=== PATIENT | female | born 1945 | race Caucasian/White ===

== ENCOUNTER 2016-03-24 11:55 | Emergency (ER) | payer MEDICARE ==
[~2016-03-24] VITALS: Ht 160 cm; Wt 100.0 kg
[~2016-03-24 11:55] MED LIST: CHOL200047 PO; CYAN500 PO; FURO40TA4 PO; IPRA3AMP NEB; LEVO750T9 PO; LISI40TA PO; MAGN400T4 PO; METF1000 PO; PANT40TA2 PO; PRED-508 PO; ZYL100 PO
[2016-03-24 11:57] VITALS: BP 153/77; PULSE 82; RESP 18; O2SAT 96
--- NOTE | 2016-03-24 12:24 | ED.REPORT ---
HPI-Dyspnea / Wheezing Date of Service Mar 24, 2016 ED Provider: Crissy Cantrell MD 71 year old diabetic female with a history of CHF, COPD, sleep apnea, CAD, and HTN presents to the ER complaining of 3-4 days of dyspnea with minimal exertion. Symptoms are resolved by resting. Multiple prior admissions for acute dyspnea. She reports fluid retention associated with previous similar episodes. Patient denies fever, and chest pain. Patient is on 2L O2 at home. She was seen by her PCP, Dr. Sow, 03/14/2016. Nursing Notes Stated Complaint: SOB Chief Complaint: Respiratory Distress Nursing Notes Reviewed: Yes Allergies: Coded Allergies: No Known Allergies (Verified , 03/24/16) Scheduled Allopurinol (Allopurinol) 100 Mg Tablet 100 MG PO DAILY Cholecalciferol (Vitamin D3) (Vitamin D3) 2,000 Unit Capsule 2,000 UNIT PO DAILY Cyanocobalamin (Vitamin B12) 500 Mcg Tablet 1,000 MCG PO DAILY Furosemide (Furosemide) 40 Mg Tablet 40 MG PO DAILY Ipratropium/Albuterol Sulfate (Iprat-Albut 0.5-3(2.5) mg/3 mL Inhalant Soln) 3 Ml Ampul.neb 3 ML NEB Q4HWA Levofloxacin (Levaquin) 750 Mg Tablet 750 MG PO DAILY Lisinopril (Lisinopril) 40 Mg Tablet 40 MG PO DAILY Magnesium Oxide (Magnesium Oxide) 400 Mg Tablet 400 MG PO BID Metformin (Glucophage) 1,000 Mg Tablet 1,000 MG PO BID Pantoprazole DR (Protonix) 40 Mg Tablet 40 MG PO DAILY Prednisone (Deltasone) 20 Mg Tablet 40 MG PO DAILY take 2 tabs for 2 days, then 1 tab for 4 days, then 1/2 tab for 4 days, then stop. General Time Seen by MD: 12:09 Chief Complaint Shortness of breath Hx Obtained From: Patient Arrived By: Walk-in Sudden in Onset?: No Onset Occurred: 4 days ago Symptom Duration: Since onset Location: : None Associated with: Denies: Chest pain, Fever Context Related History: Reports: COPD Recent Healthcare: Recent doctor visit Similar Sx Previous: Yes Past Medical History Past Medical History Notes: PCP: Dr. Sow, and Dr. Willam Dove Global Marketing Coordinator: Dr. Mann Past Medical History Hx of a Myocardial infarction Sleep apnea Reports: COPD, Congestive heart failure, Coronary artery disease, Diabetes mellitus, Hypertension Reports: Depression Past Surgical History right knee surgery Reports: Appendectomy, Cholecystectomy Family History noncontributory Smoking History Former Smoker Social History Other Social History: Good social support, Local resident Ambulatory Status Walker Review of Systems Constitutional: Denies: Chills, Fever Respiratory: Reports: Dyspnea on exertion, Shortness of breath, Denies: Non-productive cough Cardiovascular: Denies: Chest pain, Palpitations Musculoskeletal: Denies: Back pain, Extremity pain, Neck pain Skin: Denies Diaphoresis Complete sys rev & neg: except as marked. GI: Denies: Nausea, Vomiting Physical Exam Initial Vital Signs Vital Signs (First) Date Time Temp Pulse Resp B/P Pulse Ox O2 Delivery O2 Flow Rate FiO2 03/24/16 11:57 36.4 82 18 153/77 96 Nasal Cannula 2 Initial VS: Reviewed ENT: Mucous membranes moist, Conjunctiva normal, No scleral icterus Extremities: Vascular intact, Neuro intact, No tenderness Skin: Warm, Dry, No cyanosis Neurologic: Alert, Oriented, Nonfocal Psychiatric: Mood/affect normal, Behavior normal, Normal thought content General/Constitutional: Awake, Alert, Well developed, Well nourished Neck: Atraumatic, Supple, No meningismus, Full range of motion, No swelling, Non-tender, No masses Respiratory / Chest: No rales, No rhonchi Wheezing / Retractions: Positive: Wheezing moderate (Upper lung castellanos, bilaterally) Cardiovascular: Heart rate NL, Regular rhythm, Heart sounds NL, Peripheral circulation NL Lower Ext Edema: Positive: Left 2+, Right 3+ Head / Eyes: Atraumatic, Normocephalic Puffiness under eyes Interpretation & Diagnostics Lab Results Interpretation Result Diagram: 03/24/16 1255 03/24/16 1325 Test 03/24/16 12:55 03/24/16 13:25 03/24/16 13:30 White Blood Count 10.0th/mm3 (3.8-10.1) Red Blood Count 3.42mil/mm3 (3.90-5.20) Hemoglobin 10.0g/dL (12.0-15.6) Hematocrit 32.2% (35.0-46.0) Mean Corpuscular Volume 94.2fL (81-100) Mean Corpuscular Hemoglobin 29.2pg (27.0-35.0) Mean Corpuscular Hemoglobin Concent 31.1% (32.0-37.0) Red Cell Distribution Width 14.9% (12.3-15.4) Platelet Count 344bil/L (150-400) Neutrophils (%) (Auto) 66.8% (40-74) Lymphocytes (%) (Auto) 16.3% (14-46) Monocytes (%) (Auto) 10.4% (4-12) Eosinophils (%) (Auto) 5.4% (0-5) Basophils (%) (Auto) 0.4% (0-3) Hold Antonio Top Tube Received (Received) Sodium Level 135mEq/L (134-144) Potassium Level 4.8mEq/L (3.5-5.2) Chloride Level 92mEq/L (97-108) Carbon Dioxide Level 29mmol/L (18-29) Blood Urea Nitrogen 17mg/dL (8-27) Creatinine 0.84mg/dL (0.57-1.00) Estimat Glomerular Filtration Rate 96mL/min (>59) Glucose Level 156mg/dL (60-99) Calcium Level 8.9mg/dL (8.5-10.1) Total Bilirubin 0.2mg/dL (0.0-1.2) Aspartate Amino Transf (AST/SGOT) 11U/L (0-50) Alanine Aminotransferase (ALT/SGPT) 8U/L (0-32) Alkaline Phosphatase 139U/L (25-165) Troponin T < 0.010ug/L (0.0-0.011) Pro-B-Type Natriuretic Peptide 126.6pg/mL (0-301) Total Protein 7.0g/dL (6.4-8.4) Albumin 3.9g/dL (3.4-5.0) Procalcitonin 0.06ng/mL (0.00-0.08) Urine Color Straw (YELLOW) Urine Appearance Hazy (CLEAR,HAZY) Urine pH 7.0 (5.0-8.0) Urine Specific [place] 1.010 (1.003-1.035) Urine Protein Negativemg/dL (NEG,TRACE) Urine Glucose (UA) Negativemg/dL (NEGATIVE) Urine Ketones Negativemg/dL (NEGATIVE) Urine Occult Blood Negative (NEGATIVE) Urine Nitrite Negative (NEGATIVE) Urine Bilirubin Negative (NEGATIVE) Urine Urobilinogen Normalmg/dL (NORMAL) Urine Leukocyte Esterase Negative (NEGATIVE) Urine RBC 0-2/hpf (0-2) Urine WBC 0-5/hpf (0-5) Urine Epithelial Cells Moderate/hpf (NONE-MOD) Urine Crystals None seen (NONE SEEN) Urine Bacteria Moderate/hpf (NONE-FEW) Urine Hyaline Casts None/lpf (NONE) Urine Granular Casts None seen (NONE SEEN) Urine Waxy Casts None seen (NONE SEEN) Urine Red Blood Cell Casts None seen (NONE SEEN) Urine White Blood Cell Casts None seen (NONE SEEN) Urine Mucus None seen (None Seen) Urine Trichomonas None seen (NONE SEEN) Urine Yeast None (NONE SEEN) Urinalysis Comment None Urine Culture Reflexed Indicated ECG Interpretation ECG Interpretation: Sinus rhythm, rate 82 IVCD RBBB Similar to previous ECG 01/23/16 Time: 13:35 Interpreted by: ED physician X-Ray Chest Interpretation Chest Xray Interpretation: IMPRESSION: 1. Findings suspicious for mild pulmonary edema and/or pneumonia versus atelectasis involving the lung bases. Dictated by: Alexey Hargrove RRA Interpreted: Earl Gabriel MD on 03/24/2016 at 13:07 Transcribed by: EMEKA on 03/24/2016 at 13:08 Approved by: Earl Gabriel M.D. on 03/24/2016 at 13:28 View: Portable, 1 view Interpretation / Wet Read by: Interpret - Radiologist Re-Eval/Medical Decision Med Decision/Clinical Course increasing dyspnea for last days. No acute findings aside from hypoxia (with home 02 available) discussed options and decided home with steroid taper would be best. Increased lasix for 3 days. Source of Hx: Old records Re-Evaluation/Progress : Time of Eval: 16:47 Patient Status: Condition improved Re-Evaluation/Progress Note: 02 sats 90s on 4 L 02 will need to increase oxygen at home. has nebs, lasix and given steroids for home all questions answered Counseled Regarding: Diagnosis, Lab results Discharge & Departure Impression: Primary Impression: Dyspnea Additional Impression: COPD exacerbation Disposition: Home Discharge Condition All VS Reviewed: Yes Condition: Stable Additional Instructions: You have said you are more short of breath over the last 5 or so days. Your work up today does NOT show pneumonia, infection, heart attack, dramatic congestive heart failure or other acute life threatening issues. You do seem to be having a significant COPD exacerbation and felt quite a bit better after peeing out about 2L of fluid in the ER. You do not need any antibiotics at this time Ask you oxygen supplier to add a humidifier to the 02 delivery system to help with the sinus pain Use 80mg lasix (2 pills in the am) for the next 3 days then go back to one daily Use Prednisone taper: 60mg 03/25,03/26 40mg 03/27, 03/28 20mg 03/29,03/30 10mg 03/31, 04/01, 04/02, 04/03 5mg 04/04,18,19,20 Make sure you follow up with Dr Sow next week Return to the ER if you are getting worse Thanks for letting me help today! Referrals: Mitch Sow MD (PCP) Scribe Attestation Portions of this note were transcribed by Arnol Wall. I, Dr. Cantrell, personally performed the history, physical exam and medical decision-making; I reviewed and confirmed the accuracy of the information in the transcribed note. Signed by: Carly Mendez, 03/24/2016 and 15:10 copies to: Mitch Sow MD, Shawna L MD Mar 24, 2016 12:24 ARNOL WALL Mar 24, 2016 12:36
[2016-03-24] MEDS ORDERED: Furosemide 10 mg/mL 10 mL Inj IVPUSH ONE (12:30)
[2016-03-24] MEDS ORDERED: MethylprednisoLONE Sodium Succinate 62.5 mg/mL 2 mL Inj IVPUSH ONE (12:30)
[2016-03-24] MEDS ORDERED: Albuterol-Ipratropium 3 mL Inhalation Solution NEB ONE (12:30)
[2016-03-24 12:45] VITALS: PULSE 78; RESP 18; O2SAT 92
[2016-03-24 13:06] LABS: BASOPHILS % (AUTO) 0.4 % (0-3); EOSINOPHILS % (AUTO) 5.4 % (0-5); MONOCYTES % (AUTO) 10.4 % (4-12); Mean Corpuscular Hemoglobin 29.2 pg (27.0-35.0); Mean Corpuscular Volume 94.2 fL (81-100); NEUTROPHILS % (AUTO) 66.8 % (40-74); Platelet Count 344 bil/L (150-400)
--- NOTE | 2016-03-24 13:09 | DRSVH ---
PROCEDURE: X-RAY CHEST ONE VIEW, PORTABLE ([id number]) INDICATIONS: acute dyspnea TECHNIQUE: One view of the chest was acquired. COMPARISON: [facility], CR, XR CHEST 1VW (PORTABLE), 01/23/2016, 18:37. FINDINGS: Surgical changes and devices: None. Lungs and pleura: Interstitium is prominent mild edema is suspected as well as bibasilar patchy airsp stacy opacities. No pleural effusion or pneumothorax. Mediastinum: Mediastinal contours appear normal. Heart size is normal. Bones and chest wall: No suspicious bony lesions. Overlying soft tissues appear unremarkable. IMPRESSION: 1. Findings suspicious for mild pulmonary edema and/or pneumonia versus atelectasis involving the brenna g bases. Dictated by: Alexey Hargrove [facility] Interpreted: Earl Gabriel MD on 03/24/2016 at 13:07 Transcribed by: EMEKA on 03/24/2016 at 13:08 Approved by: Earl Gabriel M.D. on 03/24/2016 at 13:28
[2016-03-24 13:33] VITALS: BP 168/81; PULSE 88; RESP 19; O2SAT 94
[2016-03-24 14:10] LABS: APPEARANCE,URINE HAZY (CLEAR,HAZY); COLOR,URINE STRAW (YELLOW); OCCULT BLOOD,URINE NEGATIVE (NEGATIVE); UROBILINOGEN,URINE NORMAL (NORMAL)
[2016-03-24 14:10] LABS: TROPONIN T < 0.010 ug/L (0.0-0.011)
[2016-03-24 16:07] VITALS: BP 158/83; PULSE 74; RESP 18; O2SAT 90
[2016-03-24] MEDS ORDERED: PRE10 PO (16:50)
== END 2016-03-24 17:26 | disposition home or self-care (01) ==
LOC: SED 11:55
DX: R06.00 Dyspnea, unspecified (principal); J44.1 Chronic obstructive pulmonary disease with (acute) exacerbation; E11.9 Type 2 diabetes mellitus without complications; I25.10 Atherosclerotic heart disease of native coronary artery without angina pectoris; I50.9 Heart failure, unspecified; I25.2 Old myocardial infarction; I10 Essential (primary) hypertension; Z87.891 Personal history of nicotine dependence; Z79.84 Long term (current) use of oral hypoglycemic drugs
CPT/HCPCS: 36415; 71010; 80053; 81000; 82308; 82962; 83880; 84484; 85025; 87086; 87088; 93005; 94664; 96374; 96375; 99285; G0463; J1940; J2930; J7620

== ENCOUNTER 2016-05-01 15:10 | Emergency (ER) | payer MEDICARE ==
[~2016-05-01] VITALS: Ht 160 cm; Wt 131.8 kg
[~2016-05-01 15:10] MED LIST changes: +PRE10 PO
[2016-05-01 15:27] VITALS: BP 121/68; PULSE 66; RESP 28; O2SAT 88
--- NOTE | 2016-05-01 16:13 | ED.REPORT ---
HPI-Dyspnea / Wheezing Date of Service May 01, 2016 ED Provider: Giorgio Bryant MD A 71 year old female with a history of COPD and CHF presents to the ED on oxygen and in a wheelchair complaining of SOB onset in the last 2-3 days that is exacerbated by exertion. She reports that she has been fine for the last week , being able to do her exercises with her physical therapist. She can normally tell when her COPD is acting up and in these last 2-3 days, she has felt fluid build up in her lungs. Associated symptoms include wheezing, and is due for a nebulizer treatment at 1700. The patient denies any fever, cough, chest pain, or diaphoresis. She usually does not have a cough with her COPD episodes. She has been to the ED multiple times in the past for COPD. Last time providers were able to drain a couple liters from her using diuretics. At home, her oxygen will be in the 90's while sitting down, but it will go to the 70's when she gets up. She has a CPAP machine that she has not been able to use recently because of recent drainage that goes into her throat at night. The patient does have baseline leg swelling. She normally sleeps in a chair, reporting that she has not been able to lay flat while sleeping for the last 4 years. She has had no recent weight change, change in diet, or change in Lasix doses. She is on oxygen all the time at home, normally being on 2 or 3. She used to be on 4. Dr. Sow is her PCP. She does not have a practice director. Her last doctor visit was a couple of weeks ago. She says that she is comfortable. Nursing Notes Stated Complaint: POSS LOW SATS Chief Complaint: Respiratory Complaints Nursing Notes Reviewed: Yes (Avatrip not reconciled) Allergies: Coded Allergies: No Known Allergies (Verified , 05/01/16) Scheduled Allopurinol (Allopurinol) 100 Mg Tablet 100 MG PO DAILY Amoxicillin/Clav K 875-125 mg (Augmentin 875-125 mg) 1 Each Tablet 1 TABLET PO BID Cholecalciferol (Vitamin D3) (Vitamin D3) 2,000 Unit Capsule 2,000 UNIT PO DAILY Cyanocobalamin (Vitamin B12) 500 Mcg Tablet 1,000 MCG PO DAILY Furosemide (Furosemide) 40 Mg Tablet 40 MG PO DAILY Ipratropium/Albuterol Sulfate (Iprat-Albut 0.5-3(2.5) mg/3 mL Inhalant Soln) 3 Ml Ampul.neb 3 ML NEB Q4HWA Lactobacillus Acidophilus (Probiotic) 1 Each Capsule 1 EACH PO DAILY Levofloxacin (Levaquin) 750 Mg Tablet 750 MG PO DAILY Lisinopril (Lisinopril) 40 Mg Tablet 40 MG PO DAILY Magnesium Oxide (Magnesium Oxide) 400 Mg Tablet 400 MG PO BID Metformin (Glucophage) 1,000 Mg Tablet 1,000 MG PO BID Pantoprazole DR (Protonix) 40 Mg Tablet 40 MG PO DAILY Prednisone (Deltasone) 20 Mg Tablet 40 MG PO DAILY take 2 tabs for 2 days, then 1 tab for 4 days, then 1/2 tab for 4 days, then stop. Prednisone (PredniSONE) 10 Mg Tablet 10 MG PO DAILY 60mg 03/25,03/26 40mg 03/27, 2/ 20mg 03/29,12 10mg 13, /14, 15, 2/16 5mg 17,18,19,20 (you will have extra pills, please keep these for the next exacerbation that will require prednisone) Prednisone (PredniSONE) 20 Mg Tablet 60 MG PO DAILY General Time Seen by MD: 16:05 Chief Complaint Shortness of breath Hx Obtained From: Patient Arrived By: Walk-in Sudden in Onset?: No Onset Occurred: 3 days ago Symptom Duration: Since onset Recent Healthcare: Recent doctor visit (Last doctor visit was a couple of weeks ago. ) Similar Sx Previous: Yes Past Medical History Past Medical History Notes: PCP: Dr. Sow, and Dr. Willam Dove Filter Press Tender Head: Dr. Mann Past Medical History Hx of a Myocardial infarction Sleep apnea Reports: COPD, Congestive heart failure, Coronary artery disease, Diabetes mellitus, Hypertension Reports: Depression Past Surgical History right knee surgery Reports: Appendectomy, Cholecystectomy Family History noncontributory Smoking History Former Smoker Social History Other Social History: Good social support, Local resident Ambulatory Status Walker Review of Systems Constitutional: Denies: Fever Respiratory: Reports: Shortness of breath, Wheezing, Denies: Non-productive cough Cardiovascular: Denies: Chest pain Skin: Denies Diaphoresis Complete sys rev & neg: except as marked. Physical Exam Initial Vital Signs Vital Signs (First) Date Time Temp Pulse Resp B/P Pulse Ox O2 Delivery O2 Flow Rate FiO2 3/16/17 15:27 36.5 66 28 121/68 88 Nasal Cannula 2 Initial VS: Reviewed, Vital signs abnormal General/Constitutional: Awake, Alert, No acute distress Patient is sitting in her chair. Neck: Atraumatic, Full range of motion Respiratory / Chest: Atraumatic, No rales, No wheezing Diminished lung sounds.Not visibly tachypnic and converses normally. Cardiovascular: Heart rate NL, Regular rhythm, Heart sounds NL, No gallop, No murmurs, No rubs Plus 1 edema in ankles. ENT: Atraumatic, Mucous membranes moist Abdomen: Atraumatic, No guarding, No rebound Back: Atraumatic, Full range of motion Lower Extremity / Pelvis / MS: Atraumatic, Full range of motion Skin: Warm, Dry Neurologic: Oriented X3, Speech NL Head / Eyes: Atraumatic, Normocephalic, PERRL, EOMI Upper Extremity / MS: Atraumatic, Full range of motion Wrist / Hand: Atraumatic, Full range of motion Interpretation & Diagnostics Lab Results Interpretation Result Diagram: 05/01/16 1555 05/01/16 1555 Test 05/01/16 15:55 05/01/16 18:20 White Blood Count 12.9th/mm3 (3.8-10.1) Red Blood Count 3.67mil/mm3 (3.90-5.20) Hemoglobin 10.8g/dL (12.0-15.6) Hematocrit 34.1% (35.0-46.0) Mean Corpuscular Volume 92.9fL (81-100) Mean Corpuscular Hemoglobin 29.4pg (27.0-35.0) Mean Corpuscular Hemoglobin Concent 31.7% (32.0-37.0) Red Cell Distribution Width 14.7% (12.3-15.4) Platelet Count 361bil/L (150-400) Neutrophils (%) (Auto) 73.4% (40-74) Lymphocytes (%) (Auto) 11.5% (14-46) Monocytes (%) (Auto) 10.6% (4-12) Eosinophils (%) (Auto) 3.3% (0-5) Basophils (%) (Auto) 0.2% (0-3) Sodium Level 135mEq/L (134-144) Potassium Level 4.9mEq/L (3.5-5.2) Chloride Level 90mEq/L (97-108) Carbon Dioxide Level 30mmol/L (18-29) Blood Urea Nitrogen 23mg/dL (8-27) Creatinine 1.03mg/dL (0.57-1.00) Estimat Glomerular Filtration Rate 76mL/min (>59) Glucose Level 248mg/dL (60-99) Calcium Level 9.2mg/dL (8.5-10.1) Total Bilirubin 0.2mg/dL (0.0-1.2) Aspartate Amino Transf (AST/SGOT) 21U/L (0-50) Alanine Aminotransferase (ALT/SGPT) 11U/L (0-32) Alkaline Phosphatase 144U/L (25-165) Troponin T < 0.010ug/L (0.0-0.011) Pro-B-Type Natriuretic Peptide 139.9pg/mL (0-301) Total Protein 7.2g/dL (6.4-8.4) Albumin 3.8g/dL (3.4-5.0) Hold Antonio Top Tube Received (Received) Urine Color Yellow (YELLOW) Urine Appearance Hazy (CLEAR,HAZY) Urine pH 7.0 (5.0-8.0) Urine Specific [place] 1.010 (1.003-1.035) Urine Protein Negativemg/dL (NEG,TRACE) Urine Glucose (UA) Negativemg/dL (NEGATIVE) Urine Ketones Negativemg/dL (NEGATIVE) Urine Occult Blood Negative (NEGATIVE) Urine Nitrite Negative (NEGATIVE) Urine Bilirubin Negative (NEGATIVE) Urine Urobilinogen Normalmg/dL (NORMAL) Urine Leukocyte Esterase Negative (NEGATIVE) Urine RBC 0-2/hpf (0-2) Urine WBC 0-5/hpf (0-5) Urine Epithelial Cells Moderate/hpf (NONE-MOD) Urine Crystals None seen (NONE SEEN) Urine Bacteria Few/hpf (NONE-FEW) Urine Hyaline Casts Rare/lpf (NONE) Urine Granular Casts None seen (NONE SEEN) Urine Waxy Casts None seen (NONE SEEN) Urine Red Blood Cell Casts None seen (NONE SEEN) Urine White Blood Cell Casts None seen (NONE SEEN) Urine Mucus None seen (None Seen) Urine Trichomonas None seen (NONE SEEN) Urine Yeast None (NONE SEEN) Urinalysis Comment None Urine Culture Reflexed Not indicated Lab Results Interpretation: CBC mild leukocytosis next line CMP mild hyperglycemia ProBNP negative Troponin negative X-Ray Chest Interpretation Chest Xray Interpretation: IMPRESSION: Probable subsegmental atelectasis. I can't exclude minimal infiltrates in the lower lung castellanos. Clinical correlation would be needed. Failure is not apparent. Dictated by: Mario Alberto Tong M.D. on 05/01/2016 at 17:23 Approved by: Mario Alberto Tong M.D. on 05/01/2016 at 17:26 View: Portable, 1 view Interpretation / Wet Read by: Interpret - Radiologist Re-Eval/Medical Decision Med Decision/Clinical Course This is a 71-year-old female presents complaining of worsening orthopnea and dyspnea on exertion-she states she feels exactly she does when she develops "fluid on the lungs". She sleeps upright in a chair. She is on chronic O2 between 2 and 3 L, she also has complaints of sinus drainage and pain limiting her use of CPAP at night. She has also had some recent left lower quadrant pain that she says is reminiscent of diverticulitis, but is currently not present. She denies fevers chills or clear infectious respiratory symptoms, sinus drainage is noted. The patient notes she had similar symptoms when she was seen here the [place] several weeks ago, and reports her symptoms completely resolved with aggressive diuresis and medication regimen that was then used. The patient is an unchanged EKG. A chest x-ray does not demonstrate overt failure or edema. Blood work still reveals mild leukocytosis, she is on steroids. Her proBNP is normal. I doubt pulmonary embolus. Patient again assist this feels identical to prior exacerbations with no atypical features. Despite the absence of radiographic CHF given her response to diuretics repeat previously she was treated identically-and felt much improved. Again the patient does well she desaturates mildly with exertion but that is not entirely unusual for her. She is not so ill as to require hospitalization. I plan is to do the same thing in several days of increased diuretics, as well as the empiric steroids. Patient' s worried about diverticulitis since she has had pain in the past several days but has no pain or tenderness today. Given she is also concerned about sinus infection, and may have COPD exacerbation Augmentin would cover all possibilities. Symptoms diuresis nicely in the department and feels improved. She has been discharged in improved condition Source of Hx: Old records Differential Diagnosis: Positive: COPD exacerbation, Congestive heart failure, Negative: Hypertensive emergency, Inhalation injury, Pneumonia, Pneumothorax , Pulmonary embolism, Respiratory failure Counseled Regarding: Diagnosis, Lab results, Need for follow-up, When/why to return to ED Discharge & Departure Impression: Primary Impression: Dyspnea Dyspnea type: dyspnea on exertion Qualified Code: R06.09 - Other forms of dyspnea Additional Impression: COPD exacerbation Disposition: Home Discharge Condition All VS Reviewed: Yes Condition: Improved Additional Instructions: 1. Take the furosemide 80mg one a day for three more days like before, then return to your regular dose. 2. Take prednisone 60mg once a day for 5 days 3. Take the antibiotic Augmentin 875mg twice a day for 10 days. (NOTE: This antibiotic also covers diverticulitis, as well as sinusitis) 4. Take a probiotic daily for an additional 10 days after antibiotics to replace the normal healthy bacteria of the intestines that are killed by the antibiotic 5. Use Flonase intranasally twice a day each nostril 6. Call Dr. Sow's office tomorrow to schedule a recheck. 7. Return if new or worsening symptoms Referrals: Mitch Sow MD (PCP) Scribe Attestation Portions of this note were transcribed by Zach Brandt. I, Dr. Bryant personally performed the history, physical exam and medical decision-making; I reviewed and confirmed the accuracy of the information in the transcribed note. Signed by: Carly Adame, 05/01/2016 1908. copies to: Mitch Sow MD, Matthew F MD May 01, 2016 16:13 Zach Brandt May 01, 2016 16:14
[2016-05-01 16:18] LABS: BASOPHILS % (AUTO) 0.2 % (0-3); EOSINOPHILS % (AUTO) 3.3 % (0-5); MONOCYTES % (AUTO) 10.6 % (4-12); Mean Corpuscular Hemoglobin 29.4 pg (27.0-35.0); Mean Corpuscular Volume 92.9 fL (81-100); NEUTROPHILS % (AUTO) 73.4 % (40-74); Platelet Count 361 bil/L (150-400)
[2016-05-01] MEDS ORDERED: Furosemide 10 mg/mL 10 mL Inj IVPUSH ONE (16:25)
[2016-05-01] MEDS ORDERED: predniSONE 20 mg Tablet PO ONE (16:25)
[2016-05-01 16:50] LABS: TROPONIN T < 0.010 ug/L (0.0-0.011)
[2016-05-01 17:15] VITALS: BP 144/69; PULSE 84; RESP 18; O2SAT 95
--- NOTE | 2016-05-01 17:27 | DRSVH ---
PROCEDURE: X-RAY CHEST ONE VIEW, PORTABLE ([id number]) INDICATIONS: Shortness of Breath TECHNIQUE: One view of the chest was acquired. COMPARISON: Merged With [facility], CT, CT ANGIO CHEST PE, 12/25/2015, 18:24. [facility], CR, XR CHEST 1VW (PORTABLE), 12/24/2015, 14:25. FINDINGS: Surgical changes and devices: None. Lungs and pleura: No pleural effusions or pneumothorax. There are increased markings at the lung bas es. Lung markings are similar to chest x-rays from December of 2015. CT scan at that time showed some atelectasis and no infiltrates and no evidence for failure.. Pulmonary vasculature is considered nor mal. Mediastinum: Mediastinal contours appear normal. Heart size is normal. Bones and chest wall: No suspicious bony lesions. Overlying soft tissues appear unremarkable. IMPRESSION: Probable subsegmental atelectasis. I can't exclude minimal infiltrates in the lower lung castellanos. Clinical correlation would be needed. Failure is not apparent. Dictated by: Mario Alberto Tong M.D. on 05/01/2016 at 17:23 Approved by: Mario Alberto Tong M.D. on 05/01/2016 at 17:26
[2016-05-01] MEDS ORDERED: Albuterol-Ipratropium 3 mL Inhalation Solution NEB ONE (18:00)
[2016-05-01 18:04] VITALS: PULSE 81; RESP 20; O2SAT 93
[2016-05-01] MEDS ORDERED: Amoxicillin-Clav 875-125 mg Tablet PO ONE (18:10)
[2016-05-01 18:48] LABS: APPEARANCE,URINE HAZY (CLEAR,HAZY); COLOR,URINE YELLOW (YELLOW); OCCULT BLOOD,URINE NEGATIVE (NEGATIVE); UROBILINOGEN,URINE NORMAL (NORMAL)
[2016-05-01] MEDS ORDERED: LACT1CAP65 PO (19:09)
[2016-05-01] MEDS ORDERED: AMOX-366 PO (19:09)
[2016-05-01] MEDS ORDERED: PRE20 PO (19:09)
[2016-05-01] MEDS ORDERED: FLUT9.9S NS (19:18)
[2016-05-01 19:31] VITALS: BP 133/57; PULSE 94; RESP 20; O2SAT 90
== END 2016-05-01 19:32 | disposition home or self-care (01) ==
LOC: SED 15:10
DX: R06.09 Other forms of dyspnea (principal); J44.1 Chronic obstructive pulmonary disease with (acute) exacerbation; I50.9 Heart failure, unspecified; I25.2 Old myocardial infarction; I25.10 Atherosclerotic heart disease of native coronary artery without angina pectoris; E11.9 Type 2 diabetes mellitus without complications; I10 Essential (primary) hypertension; Z87.891 Personal history of nicotine dependence; Z79.84 Long term (current) use of oral hypoglycemic drugs
CPT/HCPCS: 71010; 80053; 81000; 83880; 84484; 85025; 93005; 94664; 96374; 99285; J1940; J7620

== ENCOUNTER 2016-05-21 16:26 | Inpatient (IN) | payer MEDICARE ==
[~2016-05-21] VITALS: Ht 160 cm; Wt 101.3 kg
[2016-05-21 08:00] VITALS: PULSE 92
[~2016-05-21 16:26] MED LIST changes: +AMOX-366 PO; +FLUT9.9S NS; +LACT1CAP65 PO; +PRE20 PO
[2016-05-21 16:32] VITALS: BP 132/67; PULSE 91; RESP 28; O2SAT 94
--- NOTE | 2016-05-21 17:00 | ED.REPORT ---
HPI-General Illness Date of Service May 21, 2016 ED Provider: Dr. King Arriola M.D. A 71 year old female with a medical history including COPD, CHF, CAD, diabetes, hypertension, and DE presents to the ED from Urgent Care with shortness of breath onset three days ago. Associated symptoms include wheeze and worsened bilateral lower extremity swelling. The patient denies cough, fever, chest pain , or other symptoms. Her symptoms are exacerbated with exertion. The patient is on 3L home O2 and has had similar symptoms in the past. Nursing Notes Stated Complaint: TROUBLE BREATHING Chief Complaint: Respiratory Distress Nursing Notes Reviewed: Yes Allergies: Coded Allergies: No Known Allergies (Verified , 05/21/16) Scheduled Allopurinol (Allopurinol) 100 Mg Tablet 100 MG PO QAM Aspirin (Aspirin) 81 Mg Tablet 81 MG PO QAM Cholecalciferol (Vitamin D3) (Vitamin D3) 2,000 Unit Capsule 2,000 UNIT PO QAM Cyanocobalamin (Vitamin B12) 500 Mcg Tablet 1,000 MCG PO QAM Furosemide (Furosemide) 40 Mg Tablet 40 MG PO QAM Ipratropium/Albuterol Sulfate (Iprat-Albut 0.5-3(2.5) mg/3 mL Inhalant Soln) 3 Ml Ampul.neb 3 ML NEB Q4HWA Lactobacillus Acidophilus (Probiotic) 1 Each Capsule 1 EACH PO DAILY Lisinopril (Lisinopril) 40 Mg Tablet 40 MG PO QAM Magnesium Oxide (Magnesium Oxide) 400 Mg Tablet 400 MG PO BID Metformin (Glucophage) 1,000 Mg Tablet 1,000 MG PO BIDWM Pantoprazole DR (Pantoprazole DR) 40 Mg Tablet.dr 40 MG PO QAM Scheduled PRN Fluticasone Propionate (Flonase Allergy Relief) 50 Mcg/Actuation [place].susp 1 SPRAY NS BID PRN PRN RHINITIS General Time Seen by MD: 16:59 Chief Complaint Breathing problem Hx Obtained From: Patient Arrived By: Walk-in Sudden in Onset?: Yes Onset Occurred: 3 days ago Symptom Duration: Since onset Severity: Current: No pain currently Severity: Maximum: No pain Pertinent Negative: Relieved by nothing Context Related History: Reports COPD, Reports Diabetes mellitus Recent Healthcare: No recent doctor visit Similar Sx Previous: Yes Past Medical History Past Medical History Notes: PCP: Dr. Sow, and Dr. Willam Dove Clinical Specialty Rep: Dr. Mann Past Medical History Hx of a Myocardial infarction Sleep apnea Reports: COPD, Congestive heart failure, Coronary artery disease, Diabetes mellitus, Hypertension Reports: Depression Past Surgical History right knee surgery Reports: Appendectomy, Cholecystectomy Family History noncontributory Smoking History Former Smoker Social History Other Social History: Good social support, Local resident Ambulatory Status Walker Review of Systems Full Review of Systems Constitutional: Denies: Fever Respiratory: Reports: Shortness of breath, Wheezing, Denies: Non-productive cough Cardiovascular: Denies: Chest pain GI: Denies: Diarrhea, Vomiting Musculoskeletal: Reports: Extremity swelling (Bilateral lower extremities ) Physical Exam Vital Signs Vital Signs Date Time Temp Pulse Resp B/P Pulse Ox O2 Delivery O2 Flow Rate FiO2 05/21/16 19:21 90 24 94 Nasal Cannula 3 05/21/16 16:32 37 91 28 132/67 94 Nasal Cannula 3 Initial VS: Reviewed Head / Eyes: Atraumatic, Normocephalic Skin: Warm, Dry Neurologic: Alert, Oriented Psychiatric: Mood/affect normal, Behavior normal General/Constitutional: Awake, Alert Respiratory / Chest: No respiratory distress Wheezing / Retractions: Positive: Prolonged exp phase, Wheezing expiratory ( Scattered) Coarse breath sounds throughout Patient has O2 sats in the 90's on 3L O2, which is her baseline O2 amount Cardiovascular: Heart rate NL, Regular rhythm, Heart sounds NL, No gallop, No murmurs, No rubs, Peripheral circulation NL (Good distal pulses) Lower Ext Edema: Positive: Bilateral 2+, Pitting Lower Extremity / Pelvis / MS: Atraumatic No unilateral calf swelling or tenderness Interpretation & Diagnostics Lab Results Interpretation Result Diagram: 05/21/16 1651 05/21/16 1651 Test 05/21/16 16:51 White Blood Count 12.8th/mm3 (3.8-10.1) Red Blood Count 3.91mil/mm3 (3.90-5.20) Hemoglobin 11.1g/dL (12.0-15.6) Hematocrit 35.5% (35.0-46.0) Mean Corpuscular Volume 90.8fL (81-100) Mean Corpuscular Hemoglobin 28.4pg (27.0-35.0) Mean Corpuscular Hemoglobin Concent 31.3% (32.0-37.0) Red Cell Distribution Width 14.4% (12.3-15.4) Platelet Count 309bil/L (150-400) Neutrophils (%) (Auto) 74.2% (40-74) Lymphocytes (%) (Auto) 13.1% (14-46) Monocytes (%) (Auto) 8.9% (4-12) Eosinophils (%) (Auto) 3.3% (0-5) Basophils (%) (Auto) 0.2% (0-3) Sodium Level 134mEq/L (134-144) Potassium Level 4.8mEq/L (3.5-5.2) Chloride Level 91mEq/L (97-108) Carbon Dioxide Level 27mmol/L (18-29) Blood Urea Nitrogen 24mg/dL (8-27) Creatinine 1.10mg/dL (0.57-1.00) Estimat Glomerular Filtration Rate 70mL/min (>59) Glucose Level 251mg/dL (60-99) Calcium Level 9.7mg/dL (8.5-10.1) Total Bilirubin 0.2mg/dL (0.0-1.2) Aspartate Amino Transf (AST/SGOT) 10U/L (0-50) Alanine Aminotransferase (ALT/SGPT) 11U/L (0-32) Alkaline Phosphatase 147U/L (25-165) Pro-B-Type Natriuretic Peptide 83.26pg/mL (0-301) Total Protein 7.5g/dL (6.4-8.4) Albumin 3.8g/dL (3.4-5.0) Hold Antonio Top Tube Received (Received) ECG Interpretation ECG Interpretation: Sinus rhythm rate [address] segment changes No acute T-wave abnormalities When compared with prior on 05/01/16, no acute changes present Time: 18:33 Interpreted by: ED physician X-Ray Chest Interpretation Chest Xray Interpretation: IMPRESSION: Bibasilar atelectasis and possibly superimposed pneumonia. Dictated by: Earl Gabriel M.D. on 05/21/2016 at 17:38 View: Portable, 1 view Interpretation / Wet Read by: Interpret - ED physician Re-Eval/Medical Decision Med Decision/Clinical Course A 71 year old female with a medical history including COPD, CHF, CAD, diabetes, hypertension, and DE presents to the ED from Urgent Care with shortness of breath onset three days ago. Associated symptoms include wheeze and worsened bilateral lower extremity swelling. The patient denies cough, fever, chest pain , or other symptoms. Her symptoms are exacerbated with exertion. The patient is on 3L home O2 and has had similar symptoms in the past. Labs: Leukocytosis at 12.8 Stable hematocrit at 35.5 Troponin negative BMP within normal limits Glucose 251 Renal function is good. No significant electrolyte abnormalities. Chest x-ray indicates bibasilar atelectasis and possible superimposed pneumonia ECG 18:33 Sinus rhythm rate [address] segment changes No acute T-wave abnormalities When compared with prior on 05/01/16, no acute changes present Chest x-ray: Bibasilar atelectasis and possibly superimposed pneumonia. Here in the emergency room the patient was treated with prednisone, 2 DuoNeb treatments and IV ceftriaxone and azithromycin for community acquired pneumonia. After the dilator treatment patient was ambulated on pulse oximetry and her baseline 3 L of oxygen by nasal cannula. She had desaturations into the mid 80s and dyspnea with exertion. Overall presentation was consistent with COPD exacerbation in the setting of community-acquired pneumonia. History and examination on convincing for acute pulmonary embolism. I do not feel that workup for PE is indicated in the setting of a clinical picture that it is overwhelmingly convincing for pneumonia and COPD exacerbation. No evidence of pulmonary edema or acute coronary syndrome. Given patient's ongoing hypoxia was admitted to hospitalist service for further management or COPD exacerbation and pneumonia. Transferred in stable condition. Source of Hx: Old records Time of Eval: 20:00 Patient Status: Condition improved Re-Evaluation/Progress Note: Discussed with patient lab and x-ray results, diagnosis, and plan for admit. Patient agrees with plan for care and all questions were addressed. Consultation : Referral / Consult Name: Gurinder Patino MD Consulted With: Hospitalist Call Returned at: 20:13 Experience Specialist: Agrees with eval, Agrees with plan, Accepts admit Counseled Regarding: Diagnosis, Lab results, Need for admission Discharge & Departure Primary Impression: COPD exacerbation Additional Impressions: Hypoxia Community acquired pneumonia Dyspnea on exertion Disposition: ADMITTED TO HOSPITAL Discharge Condition All VS Reviewed: Yes Condition: Improved Referrals: Mitch Sow MD (PCP) Scribe Attestation Portions of this note were transcribed by Alycia Gomes. I, Dr. Arriola, personally performed the history, physical exam, and medical decision-making; I reviewed and confirmed the accuracy of the information in the transcribed note. Signed by: Carly Rasmussen, 05/21/2016, 22:35 copies to: Mitch Sow MD, Beck O MD May 21, 2016 17:00 ALYCIA GOMES May 21, 2016 18:51
[2016-05-21 17:05] LABS: BASOPHILS % (AUTO) 0.2 % (0-3); EOSINOPHILS % (AUTO) 3.3 % (0-5); MONOCYTES % (AUTO) 8.9 % (4-12); Mean Corpuscular Hemoglobin 28.4 pg (27.0-35.0); Mean Corpuscular Volume 90.8 fL (81-100); NEUTROPHILS % (AUTO) 74.2 % (40-74); Platelet Count 309 bil/L (150-400)
[2016-05-21 17:25] LABS: TROPONIN T < 0.010 ug/L (0.0-0.011)
--- NOTE | 2016-05-21 17:40 | DRSVH ---
PROCEDURE: X-RAY CHEST ONE VIEW, PORTABLE ([id number]) INDICATIONS: SHORTNESS OF BREATH TECHNIQUE: One view of the chest was acquired. COMPARISON: [facility], CR, XR CHEST 1VW (PORTABLE), 05/01/2016, 16:46. FINDINGS: Surgical changes and devices: None. Lungs and pleura: Bibasilar opacities are most likely atelectasis. Possible superimposed infiltrates in lung bases. No pleural effusions or pneumothorax. Mediastinum: Mediastinal contours appear normal. Heart size is normal. Bones and chest wall: No suspicious bony lesions. Overlying soft tissues appear unremarkable. IMPRESSION: Bibasilar atelectasis and possibly superimposed pneumonia. Dictated by: Earl Gabriel M.D. on 05/21/2016 at 17:38 Approved by: Earl Gabriel M.D. on 05/21/2016 at 17:39
[2016-05-21] MEDS ORDERED: Albuterol-Ipratropium 3 mL Inhalation Solution NEB SCH (18:50)
[2016-05-21] MEDS ORDERED: predniSONE 20 mg Tablet PO ONE (18:50)
[2016-05-21] MEDS ORDERED: Albuterol-Ipratropium 3 mL Inhalation Solution NEB ONE (18:50)
[2016-05-21 19:21] VITALS: PULSE 90; RESP 24; O2SAT 94
[2016-05-21] MEDS ORDERED: Ondansetron 2 mg/mL 2 mL Inj IVPUSH PRN ×2 (20:05→20:25)
[2016-05-21] MEDS ORDERED: cefTRIAXone Inj 2,000 MG in Dextrose 5% Minibag Plus 50 ML IV ONE (20:05)
[2016-05-21] MEDS ORDERED: Alum-Mag Hydrox-Simeth 30 mL Suspension PO PRN ×2 (20:05→20:25)
[2016-05-21] MEDS ORDERED: Polyethylene Glycol (PEG) 17 Gm Powder PO PRN (20:25)
[2016-05-21] MEDS ORDERED: ASPI-973 PO (20:26)
[2016-05-21 21:00] VITALS: BP 142/82; PULSE 88; RESP 24; O2SAT 89
[2016-05-21 21:10] LABS: APPEARANCE,URINE CLEAR (CLEAR,HAZY); COLOR,URINE YELLOW (YELLOW)
[2016-05-21 21:11] LABS: OCCULT BLOOD,URINE NEGATIVE (NEGATIVE); UROBILINOGEN,URINE NORMAL (NORMAL)
[2016-05-21] MEDS ORDERED: FLUT9.9S NS (21:12)
[2016-05-21] MEDS ORDERED: PANT40TA3 PO (21:13)
[2016-05-21] MEDS ORDERED: Glucose 40% Oral Gel 15 Gm Tube PO PRN (21:35)
[2016-05-21 21:38] VITALS: BP 148/80; PULSE 89; RESP 28; O2SAT 90
[2016-05-21] MEDS: Insulin LISPRO 300 Unit/3 mL Inj SUBQ SCH (22:00)
[2016-05-21] MEDS ORDERED: 0.9% Sodium Chloride 250 ML ONE (23:00)
[2016-05-21] MEDS: Azithromycin Inj 500 MG in Dextrose 5% w/Vial Mate 250 ML IV ONE ×2 (23:08→23:48)
[2016-05-22] VITALS (13 sets, daily range): BP systolic 121–150; BP diastolic 74–84; PULSE 75–104; RESP 20–29; O2SAT 89–94
--- NOTE | 2016-05-22 00:10 | PCM.HPMED ---
Subjective Date of Service May 21, 2016 Primary Provider: Admitting Physician: Gurinder Patino MD Primary Care Physician: Mitch Sow MD Attending Physician: Gurinder Patino MD Chief Complaint: dyspnea History of Present Illness: 71yo lady with reported hx of copd, htn, dm2, chf (does not know details) dyspnea, productive cough x 3-4 days. feels like she is getting worse. some wheezing at home. no chest pain. feels a little better now after breathing rx in er. denies sick contacts. does not know details of her chf. does not know if she has had recent echo. takes lasix at home. Review of Systems: Positive Review of Symptoms mentioned and elaborated on in HPI. Head: Denies H/A, trauma, loss of consciousness. Eyes: Denies visual loss, diplopia. Ears: Denies: deafness, tinnitis, discharge, pain Nose: Denies discharge, obstruction, epistaxis Mouth: Denies sores, gingival bleeding, jaw pain Neck: Denies stiffness, issues swallowing. Respiratory: see hpi Cardiovascular:Denies CP, palpitations, orthopnea, peripheral edema Gastrointestinal: Denies melena, abd pain, n/v/d Genitourinary: Denies dysuria, discharge. Skin: Denies: lesions, rashes, pruritus. Musculoskeletal: Denies joint pain, swelling or increased warmth. Neuro: Denies numbness, tingling, weakness. Psyc: Currently denies feelings of anxiety, depression. Allergies Coded Allergies: No Known Allergies (Verified , 05/21/16) Home Medications see med rec PMH see hpi Surgical History knee, gallbladder Family History denies Social History Hx Alcohol Use: Yes (very rare, twice a year) Hx Substance Use: No Hx Tobacco Use: Yes Smoking Status: Former Smoker Exam Vital Signs Vital Sign - Last Date Time Temp Pulse Resp B/P Pulse Ox O2 Delivery O2 Flow Rate FiO2 05/21/16 21:38 36.8 89 28 148/80 90 Nasal Cannula 3.00 Intake and Output 05/21/16 05/21/16 05/22/16 Cumulative From/Thru 15:00 23:00 07:00 05/21/16 16:32 - 05/21/16 21:34 Intake Total 600 ml 600 ml Output Total 300 ml 300 ml Balance 300 ml 300 ml Intake Oral 600 ml 600 ml Output Urine Total 300 ml 300 ml # Voids 1 1 Exam General: No acute distress. Awake, alert. Head: Normocephalic, atraumatic. Eyes: White sclera. Conjunctiva non-injected. Mouth & Throat: No Bleeding. No erythema, lesions, exudates visualized. Neck: No tender adenopathy. Trachea midline. Respiratory: regular work of breathing. b/l exp wheeze. bibasilar rales Cardiovascular: S1, S2. Regular rate and rhythm without murmurs, rubs or gallops. Pulses 2+ equal bilaterally. Abdomen: Normal bowel sounds x4 quadrants. Soft, non-tender, non-distended. Extremities: Intact. no joint effusions. no lower extremity tenderness, erythema or increased warmth. 2+ pitting edema b/l Skin: Intact, no lesions, no rash. Neurologic: Awake, alert, oriented x3. No focal deficits. Psychiatric: Appropriate mood and affect. Cooperative. Lab and Diagnostics Result Diagram: 05/21/16 1651 05/21/16 1651 Assessment & Plan -- dyspnea may be from acute copd exacerbation with possible pneumonia breathing rx, steroids, abx. -- acute on chronic hypoxic respiratory failure secondary to above supplemental oxygen as needed -- chf details not known strict i and o. daily weights. echocardiogram. serial troponins. -- dm2 insulin regimen -- htn antihypertensives as tolerated. -- f/e/n: po diet. monitor electrolytes -- dvt prophylaxis: lovenox Dipso: Admit to inpt tele with expected length of stay > 2 midnights. Gurinder Patino MD May 22, 2016 00:10
[2016-05-22] MEDS: Albuterol-Ipratropium 3 mL Inhalation Solution NEB SCH ×6 (01:20→20:48)
--- NOTE | 2016-05-22 05:05 | NUR ---
ADMIT Pt arrived on floor to 3014 at 2130. Transfers well with SBA. 2L NC, cpox applied for high DM score. Per report, pt only sleeps in recliner--recliner in room. Hourly rounding in place.
[2016-05-22 06:02] LABS: BASOPHILS % (AUTO) 0.1 % (0-3); EOSINOPHILS % (AUTO) 0.1 % (0-5); MONOCYTES % (AUTO) 3.1 % (4-12); Mean Corpuscular Hemoglobin 28.4 pg (27.0-35.0); Mean Corpuscular Volume 90.2 fL (81-100); Platelet Count 314 bil/L (150-400)
[2016-05-22] MEDS: levoFLOXacin 750 mg Tablet PO SCH (07:46)
[2016-05-22] MEDS: predniSONE 20 mg Tablet PO SCH (07:46)
[2016-05-22] MEDS: Insulin LISPRO 300 Unit/3 mL Inj SUBQ SCH ×4 (07:52→20:09)
--- NOTE | 2016-05-22 08:36 | PCM.PNMED ---
Subjective Date of Service May 22, 2016 Subjective Breathing a bit better this AM. No sputum production. Patient does note increased edema over last few days, BNP normal. Patient had just finished a prednisone dose about 2 weeks ago then stated getting more sob. Exam Vital Signs Vital Sign - Last Date Time Temp Pulse Resp B/P Pulse Ox O2 Delivery O2 Flow Rate FiO2 05/22/16 06:22 36.6 76 28 135/77 91 Nasal Cannula 3.00 Intake and Output 05/21/16 05/21/16 05/22/16 Cumulative From/Thru 15:00 23:00 07:00 05/21/16 16:32 - 05/22/16 05:12 Intake Total 600 ml 349 ml 949 ml Output Total 300 ml 300 ml Balance 300 ml 349 ml 649 ml Intake Oral 600 ml 600 ml IV Total 349 ml 349 ml Output Urine Total 300 ml 300 ml # Voids 1 1 Exam Eyes; jake, eom intact ENMT; adequate hydration, no active lesions CV; S1S2 present soft systolic murmur Resp; scatted expitory wheezes, no rhonchi GI; soft, non tender, non acute Skin; dry, no rash Neuro; 2-12 intact, no motor or sensory defects Lab and Diagnostics Result Diagram: 05/22/1652605/22/16526 Assessment & Plan 1-Acute on Chronic respitory failure, poa, active -uses O2 at home 08/09--treat underlying cause -O2 to keep sats >88% -secondary to COPD exacerbation 2-Acute COPD exacerbation, poa, active -prednisone 40 po daily -duoneb qid, albuterol neb q 2h prn -antibiotics -at d/c continue prednisone until seen by OP providers 3.Possible acute pneumonia, poa, active -possible pneumonia, continue with -Rocephhin, add azithromycin -procal now and in AM -respiratory PCR panel 4-Chronic CHF, presumable secondary to diastolic dysfunction, poa, active -echo ef =65-70%, mild -Lasix 40 IV once now -continue oral lasix 5-type 2 diabetes, poa, stable -continue metformin -low dose correction -HbA1C 6-DM, poa, stable -continue home cpap 7-Hypertension, poa, stable -continue asa and lisinopril 8-GERD. poa, stable -cont protonix 9-Gout, poa, stable -cont allopurinol dispo pcp is Dr Sow, overhead cleaner is Tarah Bridges MD May 22, 2016 08:36 -- chf details not known strict i and o. daily weights. echocardiogram. serial troponins. -- dm2 insulin regimen -- htn antihypertensives as tolerated. -- f/e/n: po diet. monitor electrolytes -- dvt prophylaxis: lovenox Dipso: Admit to inpt tele with expected length of stay > 2 midnights. Tarah Madrid MD May 22, 2016 08:36
[2016-05-22] MEDS ORDERED: Azithromycin Inj 500 MG in Dextrose 5% w/Vial Mate 250 ML IV SCH ×2 (08:40→09:14)
[2016-05-22] MEDS ORDERED: Albuterol 2.5 mg/3 mL Inhalation Solution NEB PRN (08:40)
[2016-05-22] MEDS ORDERED: Furosemide 10 mg/mL 4 mL Inj IVPUSH ONE (08:40)
[2016-05-22] MEDS: Pantoprazole 40 mg ER24 Tablet PO SCH (09:29)
--- NOTE | 2016-05-22 11:07 | NUR ---
1100- Home O2 evaluation done. Pt. O2 sats 88% on 3 lpm NC. Pt. placed on RA. At rest Sats 87-88%. Pt. standing EOB/walking for 2". With activity Sats decreased to 82%. Pt. did not recover with pursed lip breathing or rest. Pt. placed back on 3 lpm, and sitting in chair. Pt. O2 sats 88-89%.
--- NOTE | 2016-05-22 11:37 | NUR ---
Oxygen Pt on 2.5L via NC, sating at 93%. numbers verified on vitals machine. Pt states to be on 3L at home for the past month. Needing up to 4L at times, was on 2L for "the longest time" Will continue to monitor.
[2016-05-22] MEDS ORDERED: LORazepam 0.5 mg Tablet PO PRN (13:40)
--- NOTE | 2016-05-22 13:55 | NUR ---
Social Work: Initial Assessment Data & Assessment: See Initial Assessment. EMR Reviewed. Patient is a 71 y/o female that admitted with COPD Exacerbation and Hypoxia. Patient confirmed that her PCP is Dr. Mitch Sow. Patient's insurance is Medicare. Patient has no LTC or VA benefits. Patient PAUL is her daughter, Rosemary Carter [id number]. Patient does not have a Advance directive/DPOA, but did accept the information provided by the SW. Patient lives at home with her daughter and grandson in [place] with four steps to enter where patient is independent at baseline. Patient does have access to a walker if needed. Patient does not drive. Patient has home O2 provided by [employer]. Patient was previously on service with [facility], but states that she does not want HH when discharged. Patient states that she will contact her PCP if HH is needed once she discharges. Patient also has a C-Pap at home. Patient has no SNF history. Patient does not have any identified needs at this time. SW will continue to follow and assist patient throughout stay. Plan: Anticipated discharge home via POV when medically ready. No discharge needs identified at this time. SW to continue to follow if any needs arise. Kaerly Chiu LMSW, MELIZA Addendum: 05/22/16 at 1405 by KARELY CHIU Amended: Links added.
--- NOTE | 2016-05-22 16:23 | NUR ---
Refused ECHO Pt refused test, notified. In the AM, pt notified RN of refusing test x2 in recent past d/t back pain and SOB with lying down. Order recd for PO ativan and PRN tylenol given. Pt on oxygen via NC.
[2016-05-22] MEDS: metFORMIN ER 500 mg ER24 Tablet PO SCH (17:19)
[2016-05-22] MEDS ORDERED: Heparin 5,000 Unit/mL Inj SUBQ SCH (20:30)
[2016-05-23] VITALS (13 sets, daily range): BP systolic 114–144; BP diastolic 70–80; PULSE 68–95; RESP 20–25; O2SAT 92–98
[2016-05-23] MEDS: metFORMIN ER 500 mg ER24 Tablet PO SCH ×2 (07:51→17:17)
[2016-05-23] MEDS: levoFLOXacin 750 mg Tablet PO SCH (07:54)
[2016-05-23] MEDS: predniSONE 20 mg Tablet PO SCH (07:54)
[2016-05-23] MEDS: Pantoprazole 40 mg ER24 Tablet PO SCH (07:55)
[2016-05-23] MEDS: Insulin LISPRO 300 Unit/3 mL Inj SUBQ SCH ×4 (07:58→20:37)
[2016-05-23] MEDS: Albuterol-Ipratropium 3 mL Inhalation Solution NEB SCH ×4 (08:25→20:40)
--- NOTE | 2016-05-23 08:27 | PCM.PNMED ---
Subjective Date of Service May 23, 2016 Subjective Doing better overnight but still wheezing and SOB particularly with exertion. Exam Vital Signs Vital Sign - Last Date Time Temp Pulse Resp B/P Pulse Ox O2 Delivery O2 Flow Rate FiO2 05/23/16 06:24 68 05/23/16 05:38 36.8 24 117/72 94 Nasal Cannula 3.00 Intake and Output 05/22/16 05/22/16 05/23/16 Cumulative From/Thru 15:00 23:00 07:00 05/21/16 16:32 - 05/23/16 05:39 Intake Total 200 ml 1186 ml 2335 ml Output Total 550 ml 1270 ml 2120 ml Balance -350 ml -84 ml 215 ml Intake Oral 200 ml 1186 ml 1986 ml IV Total 349 ml Output Urine Total 550 ml 1270 ml 2120 ml # Voids 1 # Bowel Movements 2 2 Exam Eyes; jake, eom intact ENMT; adequate hydration, no active lesions CV; S1S2 present soft systolic murmur Resp; webb mild expiratory wheezing with pretty good air movement GI; soft, non tender, non acute Skin; dry, no rash Neuro; 2-12 intact, no motor or sensory defects Lab and Diagnostics Result Diagram: 05/22/16 0527 05/23/16 0530 Assessment & Plan 1-Acute on Chronic respitory failure, poa, active -uses O2 at home 08/09--treat underlying cause -O2 to keep sats >88% -secondary to COPD exacerbation 2-Acute COPD exacerbation, poa, active -prednisone 40 po daily -duoneb qid, albuterol neb q 2h prn -antibiotics -at d/c continue prednisone until seen by OP providers -would like to keep patient in hospital today as she is improving and will be stronger tomorrow 3.Possible acute pneumonia, poa, active -possible pneumonia, continue with -Levaquin probably stop tomorrow -procal now and in AM -respiratory PCR panel (negative) 4-Chronic CHF, presumable secondary to diastolic dysfunction, poa, active -echo ef =65-70%, mild -Lasix 40 IV once now -continue oral lasix 5-type 2 diabetes, poa, stable -continue metformin -low dose correction -HbA1C 6-DM, poa, stable -continue home cpap 7-Hypertension, poa, stable -continue asa and lisinopril 8-GERD. poa, stable -cont protonix 9-Gout, poa, stable -cont allopurinol dispo pcp is Dr Sow, mental health assistant is Dr. Hitchcock [employer] Mechanical Devices: Venous Foot Pump Tarah Madrid MD May 23, 2016 08:27
--- NOTE | 2016-05-23 11:04 | NUR ---
[facility] signed
--- NOTE | 2016-05-23 11:33 | NUR ---
Social Work: Discharge Data: Pt is on day 2 of hospitalization. EMR reviewed. states pt will d/c today. No d/c planning needs. C[facility]ING [facility] offered pt HH, pt declines. No d/c planning needs. [facility] will continue to follow if needs arise. Assessment: Pt who is independent at baseline. Plan: Pt will d/c home via POV today. No d/c planning needs. [facility] will continue to follow if needs arise. KARLEE Marley
[2016-05-24] VITALS (10 sets, daily range): BP systolic 119–137; BP diastolic 70–76; PULSE 76–91; RESP 18–24; O2SAT 92–96
[2016-05-24] MEDS: Albuterol-Ipratropium 3 mL Inhalation Solution NEB SCH ×4 (08:49→21:30)
--- NOTE | 2016-05-24 08:52 | DRSVH ---
PROCEDURE: X-RAY CHEST ONE VIEW, PORTABLE ([id number]) INDICATIONS: shortness of breath TECHNIQUE: One view of the chest was acquired. COMPARISON: [facility], CR, XR CHEST 1VW (PORTABLE), 05/21/2016, 17:02. FINDINGS: Surgical changes and devices: Oxygen tubing is present over the chest. Lungs and pleura: Small pleural effusions cannot be excluded on this portable chest. There patchy are as of density and linear areas of density at the lung bases bilaterally. No change is seen at the rig ht base. The left base has worsened slightly. Mediastinum: Mediastinal contours appear normal. Heart size is normal. Bones and chest wall: No suspicious bony lesions. Overlying soft tissues appear unremarkable. IMPRESSION: Bibasilar atelectasis and/or infiltrates. Small effusions are suspected. Dictated by: Mario Alberto Tong M.D. on 05/24/2016 at 8:50 Approved by: Mario Alberto Tong M.D. on 05/24/2016 at 8:51
[2016-05-24] MEDS: metFORMIN ER 500 mg ER24 Tablet PO SCH ×2 (09:00→17:23)
[2016-05-24] MEDS: Insulin LISPRO 300 Unit/3 mL Inj SUBQ SCH ×4 (09:01→22:13)
[2016-05-24] MEDS: levoFLOXacin 750 mg Tablet PO SCH (09:01)
[2016-05-24] MEDS: Pantoprazole 40 mg ER24 Tablet PO SCH (09:03)
[2016-05-24] MEDS: predniSONE 20 mg Tablet PO SCH (09:03)
--- NOTE | 2016-05-24 11:19 | PCM.PNMED ---
Subjective Date of Service May 24, 2016 Subjective Uneventful night. Feels better but creatinine continues to go up, >1.5 this am. Exam Vital Signs Vital Sign - Last Date Time Temp Pulse Resp B/P Pulse Ox O2 Delivery O2 Flow Rate FiO2 05/24/16 10:06 87 05/24/16 08:51 18 95 Nasal Cannula 3.00 05/24/16 07:49 36.4 119/76 Intake and Output 05/23/16 05/23/16 05/24/16 Cumulative From/Thru 15:00 23:00 07:00 05/21/16 16:32 - 05/24/16 05:32 Intake Total 300 ml 786 ml 350 ml 3771 ml Output Total 400 ml 1425 ml 1000 ml 4945 ml Balance -100 ml -639 ml -650 ml -1174 ml Intake Oral 300 ml 786 ml 350 ml 3422 ml IV Total 349 ml Output Urine Total 400 ml 1425 ml 1000 ml 4945 ml # Voids 1 # Bowel Movements 2 Exam Eyes; jake, eom intact ENMT; adequate hydration, no active lesions CV; S1S2 present soft systolic murmur, mild edema but at base line per patient Resp; webb mild expiratory wheezing with pretty good air movement GI; soft, non tender, non acute Skin; dry, no rash Neuro; 2-12 intact, no motor or sensory defects Lab and Diagnostics Result Diagram: 05/22/16 0527 05/24/16 0504 Assessment & Plan 1-Acute on Chronic respitory failure, poa, active -uses O2 at home 08/09--treat underlying cause -O2 to keep sats >88% -secondary to COPD exacerbation 2-Acute COPD exacerbation, poa, active -prednisone 40 po daily -duoneb qid, albuterol neb q 2h prn -antibiotics -at d/c continue prednisone until seen by OP providers 3.Possible acute pneumonia, poa, active -possible pneumonia, continue with -Levaquin discontinued today -procal now and in AM -respiratory PCR panel (negative) 4-Chronic CHF, presumable secondary to diastolic dysfunction, poa, active -echo ef =65-70%, mild -Lasix 40 IV once now -continue oral lasix 5-type 2 diabetes, poa, stable -continue metformin -low dose correction -HbA1C 6-DM, poa, stable -continue home cpap 7-Hypertension, poa, stable -hold lisinopril until creatinine improves 8-GERD. poa, stable -cont protonix 9-Gout, poa, stable -cont allopurinol 10- Possible acute renal failure, active -hold lasix and lisinopril -drink extra water today -bmp in am dispo pcp is Dr Sow, service supervisor is Dr. Hitchcock [employer] Devices: Venous Foot Pump Tarah Madrid MD May 24, 2016 11:19
--- NOTE | 2016-05-24 16:23 | NUR ---
Respiratory status Pt. at baseline home oxygen use at 3 L. Oxygen saturation stable. Able to ambulate short distances with mild dyspnea. States neb treatments have been helping her breathe better. Fine wheezes noted, with occasional cough that produces thick yellow sputum. Will continue to monitor.
[2016-05-25 01:43] VITALS: BP 136/83; PULSE 77; RESP 18; O2SAT 94
--- NOTE | 2016-05-25 06:03 | NUR ---
NOC PT has slept ok tonight. SHe sleeps in a chair for breathing comfort. 3lNC with sats in low 90's. Lungs were diminished t/o without audible wheezes. PT has BLE edema. RLE>LLE. DP palpable. PT ambulates to BR with oxygen geospatial information scientist in place. Gait is stable. Did c/o some back pain and was given tylenol once with some relief. Pain is likely positional per pt from sleeping in chair. BG 277 at HS and required 2u lispro. PT c/o feeling very hot all the time and likes to have ice, fan and cool wash clothes on her. Pt is afebrile. Planning to go home today if her labs improve and pt is eager to do so. WIll CTM.
[2016-05-25 06:07] VITALS: BP 120/74; PULSE 73; RESP 17; O2SAT 93
[2016-05-25 06:29] VITALS: PULSE 88
[2016-05-25] MEDS: levoFLOXacin 750 mg Tablet PO SCH (06:32)
[2016-05-25] MEDS: Insulin LISPRO 300 Unit/3 mL Inj SUBQ SCH ×2 (07:46→11:48)
[2016-05-25] MEDS: Pantoprazole 40 mg ER24 Tablet PO SCH (07:47)
[2016-05-25] MEDS: metFORMIN ER 500 mg ER24 Tablet PO SCH (07:48)
[2016-05-25] MEDS: predniSONE 20 mg Tablet PO SCH (07:48)
--- NOTE | 2016-05-25 08:59 | PCM.DIMED ---
Discharge Instructions Date of Service May 25, 2016 Dates of Hospitalization May 21, 2016 at 20:23 Discharge Diagnosis Discharge Diagnosis 1-Acute on Chronic respitory failure, poa, active 2-Acute COPD exacerbation, poa, active 3.Possible acute pneumonia, poa, active 4-Chronic CHF, presumable secondary to diastolic dysfunction, poa, active 5-type 2 diabetes, poa, stable 6-DM, poa, stable 7-Hypertension, poa, stable 8-GERD. poa, stable 9-Gout, poa, stable 10- Possible acute renal failure, improving Diet Low fat, Low Sodium, Heart Healthy Activity Limited until seen by PCP Patient Instructions Please do not restart your lisinopril for two days,, restart on Thursday of this coming week. I will recommend to your physicians to taper you prednisone very slowly. Follow-up plan follow up with your primary care provider and special education superintendent as soon as possible. Follow-up with PCP in: 1 week Tarah Madrid MD May 25, 2016 08:59
[2016-05-25] MEDS ORDERED: PRE20 PO (09:02)
--- NOTE | 2016-05-25 09:05 | NUR ---
SIDRA signed. KARLEE Rodríguez
--- NOTE | 2016-05-25 09:11 | PCM.DC.MED ---
Discharge Summary Date of Service May 25, 2016 Dates of Hospitalization Date of Hospital Admission May 21, 2016 at 20:23 Date of Discharge: May 25, 2016 Providers: Admitting Physician: Gurinder Patino MD Primary Care Physician: Mitch Sow MD Attending Physician: Gurinder Patino MD Diagnosis at Time of Discharge Diagnosis at Time of Discharge 1-Acute on Chronic respitory failure, poa, active 2-Acute COPD exacerbation, poa, active 3.Possible acute pneumonia, poa, active 4-Chronic CHF, presumable secondary to diastolic dysfunction, poa, active 5-type 2 diabetes, poa, stable 6-DM, poa, stable 7-Hypertension, poa, stable 8-GERD. poa, stable 9-Gout, poa, stable 10- Possible acute renal failure, improving Procedures XRay, CTs & MRIs PROCEDURE: X-RAY CHEST ONE VIEW, PORTABLE ([id number]) INDICATIONS: shortness of breath TECHNIQUE: One view of the chest was acquired. COMPARISON: [facility], CR, XR CHEST 1VW (PORTABLE), 05/21/2016, 17: 02. FINDINGS: Surgical changes and devices: Oxygen tubing is present over the chest. Lungs and pleura: Small pleural effusions cannot be excluded on this portable chest. There patchy areas of density and linear areas of density at the lung bases bilaterally. No change is seen at the right base. The left base has worsened slightly. Mediastinum: Mediastinal contours appear normal. Heart size is normal. Bones and chest wall: No suspicious bony lesions. Overlying soft tissues appear unremarkable. IMPRESSION: Bibasilar atelectasis and/or infiltrates. Small effusions are suspected. Dictated by: Mario Alberto Tong M.D. on 05/24/2016 at 8:50 Brief History 71yo lady with reported hx of copd, htn, dm2, chf (does not know details) dyspnea, productive cough x 3-4 days. feels like she is getting worse. some wheezing at home. no chest pain. feels a little better now after breathing rx in er. denies sick contacts. does not know details of her chf. does not know if she has had recent echo. takes lasix at home. Hospital Course 1-Acute on Chronic respitory failure, poa, stable -uses O2 at home 08/09--treat underlying cause -O2 to keep sats >88% -secondary to COPD exacerbation 2-Acute COPD exacerbation, poa, improved -prednisone 40 po daily -duoneb qid, albuterol neb q 2h prn -antibiotics levaquin, finished -discharge home close follow up with pulmonary, this time I would recommend to taper the prednisone very slowly 3.Possible acute pneumonia, poa, resolved -possible pneumonia, continue with -Levaquin discontinued -procal low -respiratory PCR panel (negative) 4-Chronic CHF, presumable secondary to diastolic dysfunction, poa, active -echo ef =65-70%, mild -conitnue home meds -continue oral lasix 5-type 2 diabetes, poa, stable -continue metformin -low dose correction -HbA1C = 10.8 6-DM, poa, stable -continue home cpap 7-Hypertension, poa, stable -hold lisinopril until creatinine improves 8-GERD. poa, stable -cont protonix 9-Gout, poa, stable -cont allopurinol 10- Possible acute renal failure, improving -patient creatinine 1.11 on admit, went up to 1,52 yesterday now down to 1.49. -recommend patient not to restart lisinopril until this coming Thursday -primary care provider should repeat bmp soon to make sure all is ok dispo pcp is Dr Sow, digital photo printer is Dr. Hitchcock Exam Vital Signs (Last) Date Time Temp Pulse Resp B/P Pulse Ox O2 Delivery O2 Flow Rate FiO2 05/25/16 07:55 Supplement Oxygen 05/25/16 06:29 88 05/25/16 06:07 36.3 17 120/74 93 3.00 Exam `Eyes; jake, eom intact ENMT; adequate hydration, no active lesions CV; S1S2 present soft systolic murmur, mild edema but at base line per patient Resp; good air movement, really no sig wheezing this AM GI; soft, non tender, non acute Skin; dry, no rash Neuro; 2-12 intact, no motor or sensory defects Test 05/21/16 16:51 05/21/16 20:35 05/22/16 02:10 05/22/16 05:27 Total Bilirubin 0.2mg/dL (0.0-1.2) Aspartate Amino Transf (AST/SGOT) 10U/L (0-50) Alanine Aminotransferase (ALT/SGPT) 11U/L (0-32) Alkaline Phosphatase 147U/L (25-165) Pro-B-Type Natriuretic Peptide 83.26pg/mL (0-301) Total Protein 7.5g/dL (6.4-8.4) Albumin 3.8g/dL (3.4-5.0) Hold Antonio Top Tube Received (Received) Urine Color Yellow (YELLOW) Urine Appearance Clear (CLEAR,HAZY) Urine pH 5.0 (5.0-8.0) Urine Specific Wilder 1.015 (1.003-1.035) Urine Protein Negativemg/dL (NEG,TRACE) Urine Glucose (UA) Negativemg/dL (NEGATIVE) Urine Ketones Negativemg/dL (NEGATIVE) Urine Occult Blood Negative (NEGATIVE) Urine Nitrite Negative (NEGATIVE) Urine Bilirubin Negative (NEGATIVE) Urine Urobilinogen Normalmg/dL (NORMAL) Urine Leukocyte Esterase Negative (NEGATIVE) Urine RBC 0-2/hpf (0-2) Urine WBC 0-5/hpf (0-5) Urine Epithelial Cells Many/hpf (NONE-MOD) Urine Crystals None seen (NONE SEEN) Urine Bacteria Moderate/hpf (NONE-FEW) Urine Hyaline Casts None/lpf (NONE) Urine Granular Casts None seen (NONE SEEN) Urine Waxy Casts None seen (NONE SEEN) Urine Red Blood Cell Casts None seen (NONE SEEN) Urine White Blood Cell Casts None seen (NONE SEEN) Urine Mucus None seen (None Seen) Urine Trichomonas None seen (NONE SEEN) Urine Yeast None (NONE SEEN) Urinalysis Comment None Urine Culture Reflexed Indicated Troponin T < 0.010ug/L (0.0-0.011) White Blood Count 13.7th/mm3 (3.8-10.1) Red Blood Count 3.66mil/mm3 (3.90-5.20) Hemoglobin 10.4g/dL (12.0-15.6) Hematocrit 33.0% (35.0-46.0) Mean Corpuscular Volume 90.2fL (81-100) Mean Corpuscular Hemoglobin 28.4pg (27.0-35.0) Mean Corpuscular Hemoglobin Concent 31.5% (32.0-37.0) Red Cell Distribution Width 14.3% (12.3-15.4) Platelet Count 314bil/L (150-400) Neutrophils (%) (Auto) 88.0% (40-74) Lymphocytes (%) (Auto) 8.3% (14-46) Monocytes (%) (Auto) 3.1% (4-12) Eosinophils (%) (Auto) 0.1% (0-5) Basophils (%) (Auto) 0.1% (0-3) Hemoglobin A1c 10.8% (4.8-5.6) Triglycerides Level 97mg/dL (0-149) Cholesterol Level 211mg/dL (100-199) LDL Cholesterol, Calculated 139.600mg/dL (0-99) VLDL Cholesterol 19.400mg/dL HDL Cholesterol 52mg/dL (>39) Cholesterol/HDL Ratio 4.06 (0.0-4.4) Test 05/23/16 05:30 05/25/16 05:18 Procalcitonin 0.06ng/mL (0.00-0.08) Sodium Level 133mEq/L (134-144) Potassium Level 4.4mEq/L (3.5-5.2) Chloride Level 91mEq/L (97-108) Carbon Dioxide Level 26mmol/L (18-29) Blood Urea Nitrogen 39mg/dL (8-27) Creatinine 1.49mg/dL (0.57-1.00) Estimat Glomerular Filtration Rate 50mL/min (>59) Glucose Level 173mg/dL (60-99) Calcium Level 9.1mg/dL (8.5-10.1) Discharge Medications Discharge Medications Allopurinol (Allopurinol) 100 Mg Tablet 100 MG PO QAM (Reported) Aspirin (Aspirin) 81 Mg Tablet 81 MG PO QAM (Reported) Cholecalciferol (Vitamin D3) (Vitamin D3) 2,000 Unit Capsule 2,000 UNIT PO QAM ( Reported) Cyanocobalamin (Vitamin B12) 500 Mcg Tablet 1,000 MCG PO QAM (Reported) Furosemide (Furosemide) 40 Mg Tablet 40 MG PO QAM (Reported) Ipratropium/Albuterol Sulfate (Iprat-Albut 0.5-3(2.5) mg/3 mL Inhalant Soln) 3 Ml Ampul.neb 3 ML NEB Q4HWA Prescribed by: GUMARO N HASANDRAS, DO Lactobacillus Acidophilus (Probiotic) 1 Each Capsule 1 EACH PO DAILY Prescribed by: SALBADOR IBARRA MD Lisinopril (Lisinopril) 40 Mg Tablet 40 MG PO QAM (Reported) Magnesium Oxide (Magnesium Oxide) 400 Mg Tablet 400 MG PO BID Prescribed by: LEOBARDO JAIN DO Metformin (Glucophage) 1,000 Mg Tablet 1,000 MG PO BIDWM (Reported) Pantoprazole DR (Pantoprazole DR) 40 Mg Tablet.dr 40 MG PO QAM (Reported) Prednisone (PredniSONE) 20 Mg Tablet 40 MG PO DAILY Prescribed by: Tarah CHAUHAN MD As needed Fluticasone Propionate (Flonase Allergy Relief) 50 Mcg/Actuation [place].susp 1 SPRAY NS BID PRN PRN RHINITIS (Reported) Followup Plan Follow-up plan follow up with your primary care provider and digital photo printer as soon as possible. Discharge Diet: Low fat, Low Sodium, Heart Healthy Discharge Activity: Limited until seen by PCP Patient Instructions Please do not restart your lisinopril for two days,, restart on Thursday of this coming week. I will recommend to your physicians to taper you prednisone very slowly. Follow-up with PCP in: 1 week copies to: Mitch Sow MD; Kirk Mann MD, D Geoffrey MD May 25, 2016 09:11
[2016-05-25 09:12] VITALS: PULSE 80
[2016-05-25] MEDS: Albuterol-Ipratropium 3 mL Inhalation Solution NEB SCH (09:15)
[2016-05-25 09:16] VITALS: PULSE 84; RESP 18; O2SAT 94
[2016-05-25 10:15] VITALS: BP 124/78; PULSE 91; RESP 18; O2SAT 91
--- NOTE | 2016-05-25 10:25 | NUR ---
DC Discharge instructions reviewed with pt. Pt understands all instructions and states she has no further questions. Pt understands to hold the Lisinopril until Thursday in which she will start taking it again. Pt also understands to make sure her PCP weans her off of the steroids slowly. 3L NC baseline for pt. Pt understands all entities of her COPD and her Supplemental Oxygen use. Hard prescription for Prednisone in hand. 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 Care continues.
--- NOTE | 2016-05-25 11:08 | NUR ---
Social Work: Discharge Data: Pt is on day 4 of hospitalization. EMR reviewed. states pt will d/c today. SW met with pt at bedside and confirmed plan for family to machine operator hop picker in POV. HIGH SCHOOL FOREIGN LANGUAGE TUTOR offered pt HH, pt declines. No d/c planning needs. Assessment: Pt who is independent at baseline. Plan: Pt will d/c home via POV today. No d/c planning needs KARLEE Rodríguez
--- NOTE | 2016-05-25 13:25 | NUR ---
DC leaves Pt leaves with daughter to home with 3L NC baseline O2. Taken via WC out to care. CPAP and all belongings in hand. DC pamphlet and prescriptions in hand. Care discontinued
== END 2016-05-25 13:25 | disposition home or self-care (01) | DRG 189 ==
LOC: SED 16:26 → MPC 20:23
PROVIDERS: ADMIT Family Medicine; ATTEND Family Medicine
DX: J96.20 Acute and chronic respiratory failure, unspecified whether with hypoxia or hypercapnia (principal); J18.9 Pneumonia, unspecified organism; J44.1 Chronic obstructive pulmonary disease with (acute) exacerbation; I50.32 Chronic diastolic (congestive) heart failure; N17.9 Acute kidney failure, unspecified; I25.10 Atherosclerotic heart disease of native coronary artery without angina pectoris; E11.9 Type 2 diabetes mellitus without complications; I10 Essential (primary) hypertension; K21.9 Gastro-esophageal reflux disease without esophagitis; M10.9 Gout, unspecified; G47.33 Obstructive sleep apnea (adult) (pediatric); Z79.84 Long term (current) use of oral hypoglycemic drugs; Z79.82 Long term (current) use of aspirin; I25.2 Old myocardial infarction; Z99.81 Dependence on supplemental oxygen; Z79.51 Long term (current) use of inhaled steroids; Z87.891 Personal history of nicotine dependence

== ENCOUNTER 2016-09-07 10:30 | Emergency (ER) | payer MEDICARE ==
[~2016-09-07] VITALS: Ht 160 cm; Wt 102.3 kg
[~2016-09-07 10:30] MED LIST changes: -AMOX-366 PO; +ASPI-973 PO; -LEVO750T9 PO; -PANT40TA2 PO; +PANT40TA3 PO; -PRE10 PO; -PRED-508 PO
[2016-09-07 10:33] VITALS: BP 138/76; PULSE 98; RESP 28; O2SAT 92
--- NOTE | 2016-09-07 11:03 | ED.REPORT ---
HPI-Dyspnea / Wheezing Date of Service Sep 07, 2016 ED Provider: Crissy Cantrell MD Patient is a 71 year old female with a hx of CHF, HTN, DM, CAD, and COPD on home O2 who present to the ED for increasing home oxygen needs over the last few days. Her activities of daily living are significantly interfered with by her dyspnea. Associated symptoms include a sinus infection over the last year. She has not been on antibiotics for 2 mo. Per old reports, a sinus CT scan revealed swelling but no sinus infection. Patient does not use a humidifier with her oxygen. She denies chest pain, palpitations, fever, chills, or any other symptoms. She has not been on steroids (prednisone, up to 60 mg tapering down over a mo) for over a week. Every time she tapers off Prednisone, she ends up back on a taper due to increasing SOB. She has been on 3 L home O2 for several months. She takes metformin and Levemir. Patient has met with a sausage linker and has another appointment within the next 2 months. Nursing Notes Stated Complaint: SHORTNESS OF BREATH Chief Complaint: Respiratory Distress Nursing Notes Reviewed: Yes Allergies: Coded Allergies: No Known Allergies (Verified , 05/21/16) Scheduled Allopurinol (Allopurinol) 100 Mg Tablet 100 MG PO QAM Aspirin (Aspirin) 81 Mg Tablet 81 MG PO QAM Cholecalciferol (Vitamin D3) (Vitamin D3) 2,000 Unit Capsule 2,000 UNIT PO QAM Cyanocobalamin (Vitamin B12) 500 Mcg Tablet 1,000 MCG PO QAM Furosemide (Furosemide) 40 Mg Tablet 40 MG PO QAM Ipratropium/Albuterol Sulfate (Iprat-Albut 0.5-3(2.5) mg/3 mL Inhalant Soln) 3 Ml Ampul.neb 3 ML NEB Q4HWA Lactobacillus Acidophilus (Probiotic) 1 Each Capsule 1 EACH PO DAILY Lisinopril (Lisinopril) 40 Mg Tablet 40 MG PO QAM Magnesium Oxide (Magnesium Oxide) 400 Mg Tablet 400 MG PO BID Metformin (Glucophage) 1,000 Mg Tablet 1,000 MG PO BIDWM Pantoprazole DR (Pantoprazole DR) 40 Mg Tablet.dr 40 MG PO QAM Prednisone (PredniSONE) 20 Mg Tablet 40 MG PO DAILY Prednisone (PredniSONE) 10 Mg Tablet 10 MG PO DAILY 20 mg daily for 7 days, 15 mg daily for 7 days, 10 mg daily for 7 days, continue 5 mg daily Scheduled PRN Fluticasone Propionate (Flonase Allergy Relief) 50 Mcg/Actuation [place].susp 1 SPRAY NS BID PRN PRN RHINITIS General Time Seen by MD: 11:02 Chief Complaint Shortness of breath Hx Obtained From: Patient Arrived By: Walk-in Sudden in Onset?: No Onset Occurred: 3 days ago Symptom Duration: Since onset Past Medical History Past Medical History Notes: PCP: Dr. Sow, and Dr. Willam Dove Computational Geneticist: Dr. Mann Past Medical History Hx of a Myocardial infarction Sleep apnea Diverticulitis Reports: COPD, Congestive heart failure, Coronary artery disease, Diabetes mellitus, Hypertension Reports: Depression Past Surgical History right knee surgery Reports: Appendectomy, Cataract surgery, Cholecystectomy Family History noncontributory Smoking History Former Smoker Social History Other Social History: Good social support, Local resident Ambulatory Status Walker Review of Systems Constitutional: Denies: Chills, Fever Ears / Nose / Throat: Reports: Sinus problem Respiratory: Reports: Dyspnea on exertion, Shortness of breath Cardiovascular: Denies: Chest pain, Palpitations Complete sys rev & neg: except as marked. Physical Exam Initial Vital Signs Vital Signs (First) Date Time Temp Pulse Resp B/P Pulse Ox O2 Delivery O2 Flow Rate FiO2 09/07/16 10:33 36.7 98 28 138/76 92 Room Air 09/07/16 12:01 3 Initial VS: Reviewed, Vital signs abnormal Head / Eyes: Atraumatic, Normocephalic Abdomen / GI: Soft, Non-tender Skin: Warm, Dry Neurologic: Alert, Oriented, Nonfocal Psychiatric: Mood/affect normal, Behavior normal, Normal thought content General/Constitutional: Awake, Alert, No acute distress Neck: Full range of motion, No adenopathy Respiratory / Chest: Breath sounds = bilat, No retractions Mild diffuse wheezes Cardiovascular: Heart rate NL, Regular rhythm, Heart sounds NL, No gallop, No murmurs, No rubs Lower Ext Edema: Positive: Bilateral 2+ (Chronic ) ENT: Airway patent, Pharynx NL Re-Eval/Medical Decision Med Decision/Clinical Course 71-year-old woman who complains of increasing exertional dyspnea every time she stops her prednisone. She has increased her oxygen to 3 L over the last number of months. Continues to try to stop her prednisone and then ends up on higher tapers. Has been seen once by a pulmonology and has appointment coming up. Has tried to get into pulmonary rehabilitation but apparently there are no spaces available. Notes that she has chronic sinusitis however a CT scan of the sinuses in November 2015 shows no acute sinusitis. We did discuss sinus dryness and irritation from her oxygen as well as her nasal steroids and the benefits of daily saline nasal/sinus rinses. It may be that the increased thick nasal discharge she is having is exacerbating her COPD as well. She was more than willing to give this a try. We will give her several doses of 60 mg of prednisone today and then place her back on a long steroid taper. 20 mg daily for 7 days, 15 mg daily for 7 days, 10 mg daily for 7 days, continue 5 mg daily until evaluated by primary care and pulmonology. Diabetes, currently on Levemir 20 mg daily her sugars are typically in the 200 range but often go up into the 300 range with her steroid tapers. I suggested that she increase her Levemir to 25 units daily while on 20 mg and 15 mg of prednisone and then go back down to 20 mg when her prednisone is down to 10 mg Re-Evaluation/Progress : Time of Eval: 11:17 )( Re-Eval Resp / Chest: Mild wheezing Re-Evaluation/Progress Note: Discussed plan for discharge. Patient understands and agrees with plan. All questions addressed at this time. Counseled Regarding: Diagnosis, Need for follow-up, When/why to return to ED Discharge & Departure Impression: Primary Impression: COPD with acute exacerbation Additional Impression: Acute inflammation of nasal sinus Sinusitis location: unspecified location Recurrence: not specified as recurrent Qualified Code: J01.90 - Acute sinusitis, unspecified Disposition: Home Discharge Condition All VS Reviewed: Yes Condition: Stable Additional Instructions: Thank you for coming to the emergency department today. I recommend doing a sinus wash (like a Netti pot) twice a day to help decrease your sinus congestion. This will decrease your sinus drainage and help you breathe better. I also recommend using a humidifier with your oxygen to reduce they drying effect of the oxygen. Take prednisone as prescribed. 20 mg daily for 7 days, 15 mg daily for 7 days, 10 mg daily for 7 days, continue 5 mg daily You will need to adjust your Levemir as follows:25 units at bedtime while you are on 20 and 15 mg of prednisone. When you decreased her dose down to 15 mg of prednisone E could not decrease her Levemir back to the 20 mg she will usually take. Follow up with your sausage linker to discuss a daily, low dose of steroids. Return to the emergency department for new or worsening symptoms. I hope you feel better soon! Referrals: Mitch Sow MD (PCP) Genna Mann MD Attestation Portions of this note were transcribed by Val Banda. I, Dr. Cantrell personally performed the history, physical exam and medical decision-making; I reviewed and confirmed the accuracy of the information in the transcribed note. Signed by: Carly Sorensen, 09/07/16 at 1147 copies to: Mitch Sow MD; Genna Mann MD, Shawna L MD Sep 07, 2016 11:03 VAL BANDA Sep 07, 2016 11:11
[2016-09-07] MEDS ORDERED: predniSONE 20 mg Tablet PO ONE (11:30)
[2016-09-07] MEDS ORDERED: PRE10 PO (11:45)
[2016-09-07 12:01] VITALS: BP 145/89; PULSE 61; RESP 20; O2SAT 93
== END 2016-09-07 11:50 | disposition home or self-care (01) ==
LOC: SED 10:30
DX: J44.1 Chronic obstructive pulmonary disease with (acute) exacerbation (principal); J01.90 Acute sinusitis, unspecified; I11.0 Hypertensive heart disease with heart failure; I50.9 Heart failure, unspecified; I25.10 Atherosclerotic heart disease of native coronary artery without angina pectoris; E11.9 Type 2 diabetes mellitus without complications; I25.2 Old myocardial infarction; Z79.891 Long term (current) use of opiate analgesic; Z79.82 Long term (current) use of aspirin; Z79.84 Long term (current) use of oral hypoglycemic drugs; Z79.899 Other long term (current) drug therapy

== ENCOUNTER 2016-10-07 19:43 | Inpatient (IN) | payer MEDICARE, MEDICAID ==
[~2016-10-07] VITALS: Ht 160 cm; Wt 109.3 kg
[~2016-10-07 19:43] MED LIST changes: +PRE10 PO
[2016-10-07 19:59] VITALS: BP 173/78; PULSE 93; RESP 28; O2SAT 93
--- NOTE | 2016-10-07 21:23 | DRSVH ---
PROCEDURE: X-RAY CHEST ONE VIEW, PORTABLE ([id number]) INDICATIONS: SHORTNESS OF BREATH TECHNIQUE: One view of the chest was acquired. COMPARISON: [facility], CR, XR CHEST 1VW (PORTABLE), 01/23/2016, 18:37. [facility], CR, XR CHEST 1VW (PORTABLE), 05/24/2016, 7:40. FINDINGS: Surgical changes and devices: None. Lungs and pleura: No pleural effusions or pneumothorax. Lungs are show bibasilar atelectasis or sca rring. Vasculature appears prominent but no interstitial edema is seen. Mediastinum: Mediastinal contours appear normal allowing for rotation and an elongated aorta.. Hear t size is normal. Bones and chest wall: No suspicious bony lesions. Overlying soft tissues appear unremarkable. IMPRESSION: Question of mild fluid overload or early failure. Bibasilar atelectasis or scarring. Dictated by: Mario Alberto Tong M.D. on 10/07/2016 at 21:19 Approved by: Mario Alberto Tong M.D. on 10/07/2016 at 21:22
--- NOTE | 2016-10-07 21:44 | ED.REPORT ---
HPI-Dyspnea / Wheezing Date of Service Oct 07, 2016 ED Provider: Dr. Araujo Pt is a 71 year old female with a hx of COPD, CAD, HTN, DM, and CHF presenting to the ED complaining of SOB and dyspnea on exertion onset about a week ago, worsened today. Associated symptoms include LE swelling. She is on 3 L of O2 at home and takes 40 Lasix. Nursing Notes Stated Complaint: SOB/NEEDS O2, HER TANK IS ALMOST EMPTY Chief Complaint: Respiratory Complaints Nursing Notes Reviewed: Yes Allergies: Coded Allergies: No Known Allergies (Verified , 10/08/16) Scheduled Allopurinol (Allopurinol) 100 Mg Tablet 100 MG PO QAM Aspirin (Aspirin) 81 Mg Tablet 81 MG PO QAM Cholecalciferol (Vitamin D3) (Vitamin D3) 2,000 Unit Capsule 2,000 UNIT PO QAM Cyanocobalamin (Vitamin B12) 500 Mcg Tablet 1,000 MCG PO QAM Furosemide (Furosemide) 40 Mg Tablet 40 MG PO QAM Ipratropium/Albuterol Sulfate (Iprat-Albut 0.5-3(2.5) mg/3 mL Inhalant Soln) 3 Ml Ampul.neb 3 ML NEB Q4HWA Lisinopril (Lisinopril) 40 Mg Tablet 40 MG PO QAM Magnesium Oxide (Magnesium Oxide) 400 Mg Tablet 400 MG PO BID Metformin (Glucophage) 1,000 Mg Tablet 1,000 MG PO BIDWM Pantoprazole DR (Pantoprazole DR) 40 Mg Tablet.dr 40 MG PO QAM Prednisone (PredniSONE) 20 Mg Tablet 40 MG PO DAILY Prednisone (PredniSONE) 10 Mg Tablet 10 MG PO DAILY 20 mg daily for 7 days, 15 mg daily for 7 days, 10 mg daily for 7 days, continue 5 mg daily Scheduled PRN Fluticasone Propionate (Flonase Allergy Relief) 50 Mcg/Actuation [place].susp 1 SPRAY NS BID PRN PRN RHINITIS General Time Seen by MD: 21:43 Chief Complaint Shortness of breath Hx Obtained From: Patient Arrived By: Wheelchair Sudden in Onset?: No Onset Occurred: 1 week ago Symptom Duration: Since onset Severity: Current: No pain currently Severity: Maximum: No pain Recent Healthcare: No recent doctor visit, No recent hospitalization Similar Sx Previous: Yes Past Medical History Past Medical History Notes: PCP: Dr. Sow, and Dr. Willam Dove Chronometer Repairer: Dr. Parimi Past Medical History Hx of a Myocardial infarction Sleep apnea Diverticulitis Reports: COPD, Congestive heart failure, Coronary artery disease, Diabetes mellitus, Hypertension Reports: Depression Past Surgical History right knee surgery Reports: Appendectomy, Cataract surgery, Cholecystectomy Family History noncontributory Smoking History Former Smoker Social History Other Social History: Good social support, Local resident Ambulatory Status Walker Review of Systems Respiratory: Reports: Dyspnea on exertion, Shortness of breath Cardiovascular: Reports: Dyspnea on exertion, Edema Musculoskeletal: Reports: Extremity swelling Complete sys rev & neg: except as marked. Physical Exam Initial Vital Signs Vital Signs (First) Date Time Temp Pulse Resp B/P Pulse Ox O2 Delivery O2 Flow Rate FiO2 10/07/16 19:59 37.1 93 28 173/78 93 Nasal Cannula 3 Initial VS: Reviewed, Vital signs abnormal Head / Eyes: Atraumatic, Normocephalic, PERRL ENT: Mucous membranes moist, Conjunctiva normal, No scleral icterus Abdomen / GI: Soft, Non-tender, No guarding, No rebound, No distention Skin: Warm, Dry, No cyanosis Neurologic: Alert, Oriented, Nonfocal Psychiatric: Mood/affect normal, Behavior normal, Normal thought content General/Constitutional: Awake, Alert Neck: Atraumatic Right JVD Respiratory / Chest: Atraumatic Rales, wheezes and rhonchi throughout, no focal changes. Cardiovascular: Heart rate NL, Regular rhythm, Heart sounds NL Bilateral 3+ pitting edema Interpretation & Diagnostics Lab Results Interpretation Result Diagram: 10/07/16220210/07/16 220 Test 10/07/16 22:03 10/08/16 00:04 White Blood Count 13.9th/mm3 (3.8-10.1) Red Blood Count 3.69mil/mm3 (3.90-5.20) Hemoglobin 10.6g/dL (12.0-15.6) Hematocrit 34.6% (35.0-46.0) Mean Corpuscular Volume 93.8fL (81-100) Mean Corpuscular Hemoglobin 28.7pg (27.0-35.0) Mean Corpuscular Hemoglobin Concent 30.6% (32.0-37.0) Red Cell Distribution Width 15.2% (12.3-15.4) Platelet Count 312bil/L (150-400) Neutrophils (%) (Auto) 72.3% (40-74) Lymphocytes (%) (Auto) 15.4% (14-46) Monocytes (%) (Auto) 7.4% (4-12) Eosinophils (%) (Auto) 3.9% (0-5) Basophils (%) (Auto) 0.2% (0-3) Sodium Level 137mEq/L (134-144) Potassium Level 4.8mEq/L (3.5-5.2) Chloride Level 92mEq/L (97-108) Carbon Dioxide Level 31mmol/L (18-29) Blood Urea Nitrogen 25mg/dL (8-27) Creatinine 1.10mg/dL (0.57-1.00) Estimat Glomerular Filtration Rate 70mL/min (>59) Glucose Level 167mg/dL (60-99) Calcium Level 9.1mg/dL (8.5-10.1) Total Bilirubin 0.2mg/dL (0.0-1.2) Aspartate Amino Transf (AST/SGOT) 10U/L (0-50) Alanine Aminotransferase (ALT/SGPT) 13U/L (0-32) Alkaline Phosphatase 135U/L (25-165) Troponin T 0.010ug/L (0.0-0.011) Pro-B-Type Natriuretic Peptide 173.9pg/mL (0-301) Total Protein 7.1g/dL (6.4-8.4) Albumin 3.9g/dL (3.4-5.0) Urine Color Straw (YELLOW) Urine Appearance Hazy (CLEAR,HAZY) Urine pH 7.0 (5.0-8.0) Urine Specific [place] 1.009 (1.003-1.035) Urine Protein Negativemg/dL (NEG,TRACE) Urine Glucose (UA) Negativemg/dL (NEGATIVE) Urine Ketones Negativemg/dL (NEGATIVE) Urine Occult Blood Negative (NEGATIVE) Urine Nitrite Negative (NEGATIVE) Urine Bilirubin Negative (NEGATIVE) Urine Urobilinogen Normalmg/dL (NORMAL) Urine Leukocyte Esterase Negative (NEGATIVE) Urine RBC 0-2/hpf (0-2) Urine WBC 0-5/hpf (0-5) Urine Epithelial Cells Few/hpf (NONE-MOD) Urine Crystals None seen (NONE SEEN) Urine Bacteria Few/hpf (NONE-FEW) Urine Hyaline Casts None/lpf (NONE) Urine Granular Casts None seen (NONE SEEN) Urine Waxy Casts None seen (NONE SEEN) Urine Red Blood Cell Casts None seen (NONE SEEN) Urine White Blood Cell Casts None seen (NONE SEEN) Urine Mucus None seen (None Seen) Urine Trichomonas None seen (NONE SEEN) Urine Yeast None (NONE SEEN) Urinalysis Comment None Urine Culture Reflexed Not indicated Lab Results Interpretation: Elevated white blood count, mild anemia, BNP normal, troponin negative. ECG Interpretation ECG Interpretation: Atrial premature complexes. RBBB. Time: 20:47 Interpreted by: ED physician Normal ECG Interpretation: Normal rate (84), Normal sinus rhythm X-Ray Chest Interpretation Chest Xray Interpretation: IMPRESSION: Question of mild fluid overload or early failure. Bibasilar atelectasis or scarring. Dictated by: Mario Alberto Tong M.D. on 10/07/2016 at 21:19 View: Portable, 1 view Interpretation / Wet Read by: Interpret - Radiologist Re-Eval/Medical Decision Med Decision/Clinical Course 8-year-old female with increasing respiratory distress over the last 3 or 4 days. She has had increasing edema despite taking her Lasix as prescribed. Chest x-ray shows acute exacerbation of CHF with fluid overload. There is no definite pneumonia. Her white count is elevated mildly. BNP is negative and troponin is negative. She was given Lasix 80 mg IV with almost 1000 mL of urine output. Her respiratory difficulty improved. Her case was discussed with Dr. Chang and the patient will be admitted to the hospitalist service. Re-Evaluation/Progress : Time of Eval: 21:52 Patient Status: Condition improved Re-Evaluation/Progress Note: Discussed plan for likely admission. Pt understands and agrees with plan. Consultation : Referral / Consult Name: Dragan Chang MD Consulted With: Hospitalist Call Returned at: 01:21 Imaging Scheduler: Will see patient, Agrees with plan, Accepts admit Counseled Regarding: Diagnosis, Lab results, Need for admission Discharge & Departure Impression: Primary Impression: COPD with acute exacerbation Additional Impression: Acute exacerbation of CHF (congestive heart failure) Congestive heart failure type: unspecified congestive heart failure type Qualified Code: I50.9 - Heart failure, unspecified Disposition: ADMITTED TO HOSPITAL Discharge Condition All VS Reviewed: Yes Condition: Improved Referrals: Mitch Sow MD (PCP) Scribe Attestation Portions of this note were transcribed by Sakshi Crisostomo. I, Dr. Araujo personally performed the history, physical exam and medical decision-making; I reviewed and confirmed the accuracy of the information in the transcribed note. Signed by: Carly Chun, 10/07/2016. copies to: Mitch Sow MD, Howard L MD Oct 07, 2016 21:44 SAKSHI CRISOSTOMO Oct 07, 2016 21:52
[2016-10-07] MEDS ORDERED: Albuterol-Ipratropium 3 mL Inhalation Solution NEB ONE (21:50)
[2016-10-07] MEDS ORDERED: Furosemide 10 mg/mL 10 mL Inj IVPUSH ONE (21:50)
[2016-10-07] MEDS ORDERED: Albuterol 2.5 mg/3 mL Inhalation Solution NEB ONE (21:50)
[2016-10-07 22:14] LABS: BASOPHILS % (AUTO) 0.2 % (0-3); EOSINOPHILS % (AUTO) 3.9 % (0-5); MONOCYTES % (AUTO) 7.4 % (4-12); Mean Corpuscular Hemoglobin 28.7 pg (27.0-35.0); Mean Corpuscular Volume 93.8 fL (81-100); NEUTROPHILS % (AUTO) 72.3 % (40-74); Platelet Count 312 bil/L (150-400)
[2016-10-07 22:34] VITALS: PULSE 83; RESP 18; O2SAT 93
[2016-10-07 22:36] LABS: TROPONIN T 0.01 ug/L (0.0-0.011)
[2016-10-07 23:26] VITALS: BP 136/60; PULSE 102; RESP 26; O2SAT 93
[2016-10-08] VITALS (14 sets, daily range): BP systolic 96–152; BP diastolic 59–80; PULSE 77–96; RESP 18–20; O2SAT 88–96
[2016-10-08 00:20] LABS: APPEARANCE,URINE HAZY (CLEAR,HAZY); COLOR,URINE STRAW (YELLOW)
[2016-10-08 00:21] LABS: OCCULT BLOOD,URINE NEGATIVE (NEGATIVE); UROBILINOGEN,URINE NORMAL (NORMAL)
[2016-10-08] MEDS ORDERED: Alum-Mag Hydrox-Simeth 30 mL Suspension PO PRN (01:25)
[2016-10-08] MEDS ORDERED: Polyethylene Glycol (PEG) 17 Gm Powder PO PRN (01:25)
[2016-10-08] MEDS ORDERED: Ondansetron 2 mg/mL 2 mL Inj IVPUSH PRN (01:25)
--- NOTE | 2016-10-08 02:15 | NUR ---
Admit Report taken from Marlene Robins ED RN @ [id number], patient arrives now via w/c w/tech Darnell mckeon CF/COPD exacerbation, located recliner for patient as cannot tolerate lying flat on 3L NC per home use, 80cc Lasix given in ED ,Admission and room orientation complete place on telemetry gown given declined removing pants call light in reach of recliner
[2016-10-08] MEDS ORDERED: Glucose 40% Oral Gel 15 Gm Tube PO PRN (02:25)
[2016-10-08] MEDS ORDERED: Albuterol 2.5 mg/3 mL Inhalation Solution NEB PRN (02:25)
--- NOTE | 2016-10-08 02:59 | PCM.HPMED ---
Subjective Date of Service Oct 08, 2016 Primary Provider: Admitting Physician: Dragan Chang MD Primary Care Physician: Mitch Sow MD Attending Physician: Dragan Chang MD Admit Status: From the Emergency Department, Remote Telemetry Chief Complaint: Shortness of breath with exertion History of Present Illness: Ms. Pettit is a pleasant 71-year-old female with a history of COPD, chronic hypoxemic respiratory failure, obstructive sleep apnea, non-insulin using diabetes, and preserved ejection fraction heart failure, presented to the emergency department with a progressively worsening shortness of breath with exertion and intermittent nonproductive cough,, without any associated fever, or chills. She was admitted for evaluation and treatment of suspected exacerbation of preserved ejection fraction heart failure. - Hospital day 1 Patient states that the symptoms have been present for approximately 1 week, but worsening the day of admission. She notes shortness of breath with exertion , without any associated fever, chills, nausea, vomiting, diarrhea, or constipation. She does note a mild intermittent nonproductive cough, which has not improved or worsened since the onset of present symptoms. She states that she has had a chronic sinus infection which is contributing to her symptoms of cough as she has been experiencing some postnasal discharge. She states that she becomes shortness of breath with exertion as her prednisone taper progresses , and she notes that she is near the completion of her taper at this time. She admits to compliance with all of her medications, and is currently not taking any antibiotics for her sinus infection or any other infection. She denies any recent sick contacts. She also notes increased swelling of her bilateral lower extremities, and peripheral edema. She admits to chronic oxygen dependence, with reported 3 L continuous. In the ED, T 37.1, P 93, RR 28, BP 173/78, 93% on 3 L nasal cannula; initial labs revealed white count 13.9 with 72.3% neutrophils, hemoglobin 10.6, hematocrit 34.6, platelets 312; sodium 137, potassium 4.8, creatinine 1.10, glucose 137, troponin negative, proBNP 173.9; UA not indicative of infection with negative nitrites, leukocyte esterase, and few bacteria; initial imaging included CXR suggestive of fluid overload with bibasilar atelectasis or scarring ; EKG revealed sinus rhythm with rate 84, QTC 470, with evidence of a right bundle branch block and PACs, no acute ST-T changes noted; initial therapies included furosemide 80 mg IV push 1, albuterol nebulizers, and DuoNeb nebulizer. She was transported to medical floor in stable condition. Review of Systems: Complete review of systems obtained, pertinent positives and negatives as noted in history of present illness Allergies Coded Allergies: No Known Allergies (Verified , 10/08/16) Home Medications From ED documentation: Scheduled Allopurinol (Allopurinol) 100 Mg Tablet 100 MG PO QAM Aspirin (Aspirin) 81 Mg Tablet 81 MG PO QAM Cholecalciferol (Vitamin D3) (Vitamin D3) 2,000 Unit Capsule 2,000 UNIT PO QAM Cyanocobalamin (Vitamin B12) 500 Mcg Tablet 1,000 MCG PO QAM Furosemide (Furosemide) 40 Mg Tablet 40 MG PO QAM Ipratropium/Albuterol Sulfate (Iprat-Albut 0.5-3(2.5) mg/3 mL Inhalant Soln) 3 Ml Ampul.neb 3 ML NEB Q4HWA Lactobacillus Acidophilus (Probiotic) 1 Each Capsule 1 EACH PO DAILY Lisinopril (Lisinopril) 40 Mg Tablet 40 MG PO QAM Magnesium Oxide (Magnesium Oxide) 400 Mg Tablet 400 MG PO BID Metformin (Glucophage) 1,000 Mg Tablet 1,000 MG PO BIDWM Pantoprazole DR (Pantoprazole DR) 40 Mg Tablet.dr 40 MG PO QAM Prednisone (PredniSONE) 20 Mg Tablet 40 MG PO DAILY Prednisone (PredniSONE) 10 Mg Tablet 10 MG PO DAILY 20 mg daily for 7 days, 15 mg daily for 7 days, 10 mg daily for 7 days, continue 5 mg daily Scheduled PRN Fluticasone Propionate (Flonase Allergy Relief) 50 Mcg/Actuation [place].susp 1 SPRAY NS BID PRN PRN RHINITIS PMH Chronic hypoxemic hypercarbic respiratory failure Obesity dependent hypoventilatory Myocardial infarction Obstructive sleep apnea on CPAP Restless leg syndrome Vitamin D deficiency Diabetes mellitus type II Depression COPD Congestive heart failure Coronary artery disease Hypertension Gout Surgical History Right knee surgery Appendectomy Cholecystectomy Tubal ligation Family History Mother had a stroke while undergoing cath for [place] at 72 Father had no known medical problems Grandson from asthma Social History Hx Alcohol Use: Yes (very rare, twice a year) Hx Substance Use: No Hx Tobacco Use: Yes Smoking Status: Former Smoker (comment approximately 2011; smoked for approximately 30 years at 1 pack per day) Living Arrangement: with Family (local) Exam Vital Signs Vital Sign - Last Date Time Temp Pulse Resp B/P Pulse Ox O2 Delivery O2 Flow Rate FiO2 10/07/16 23:26 102 26 136/60 93 Nasal Cannula 3 10/07/16 19:59 37.1 Intake and Output 10/07/16 10/07/16 10/08/16 Cumulative From/Thru 15:00 23:00 07:00 10/07/16 19:59 - 10/08/16 00:45 Intake Total 120 ml 120 ml Output Total 700 ml 700 ml Balance 120 ml -700 ml -580 ml Intake Oral 120 ml 120 ml Output Urine Total 700 ml 700 ml Exam General: No acute distress, well-developed, well-nourished, appropriately interactive, sitting in wheelchair for comfort HEENT: Nasal canula in place.Normocephalic, atraumatic. External ears without defect. Pupils equal, round, and reactive to light. Anicteric sclerae, moist conjunctivae. Oropharynx free of erythema and cobble stoning with moist mucosa. Neck: Supple with full range of motion. No lymphadenopathy Cardiovascular: Regular rate and rhythm with no murmurs, rubs, or gallops appreciated Pulmonary: Faint crackles at bilateral bases, R > L. Faint end expiratory wheezes throughout bilateral upper castellanos. Normal respiratory effort with no use of accessory muscles. Pt able to speak in full sentences without compromises in respiratory status. Abdomen: Bowel tones present. Soft, nontender, nondistended. Extremities: Moderate bilateral lower extremity edema extending from the dorsum to midcalf Skin: Warm and dry; area of erythema noted over left distal fifth metatarsal and fifth digit of left foot without evidence of skin breaking, exudate, or active bleeding Psychiatric: Appropriate mood, affect, and response to questioning; good insight and judgment Neuro: Cranial nerves II through XII grossly intact, facial expressions equal and symmetric, speech without slurring Lab and Diagnostics Result Diagram: 10/07/16220210/07/162202 Assessment & Plan Ms. Pettit is a pleasant 71-year-old female with a history of COPD, chronic hypoxemic respiratory failure, obstructive sleep apnea, non-insulin using diabetes, and preserved ejection fraction heart failure, presented to the emergency department with a progressively worsening shortness of breath with exertion and intermittent nonproductive cough,, without any associated fever, or chills. She was admitted for evaluation and treatment of suspected exacerbation of preserved ejection fraction heart failure. - Hospital day 1 Acute on chronic hypoxemic hypercarbic respiratory failure, present on admission , presumed stable - Patient reports continuous 3 L nasal cannula as home dose - DDx: Acute exacerbation CHF, acute exacerbation COPD, early stage pneumonia; most likely CHF exacerbation based on sx and CXR findings - No reports of productive cough, fever, chills - Patient currently has baseline oxygen supplementation without respiratory compromise after receiving lasix 80mg IV push x1 - Treat underlying cause - DC tele if remains stable; pt is DNR status Likely congestive heart failure exacerbation, preserved ejection fraction, acute on chronic, under evaluation - Acute exacerbation of heart failure is most likely etiology of presenting symptoms - In ED, given lasix 80mg IV push - Continue aggressive diuresis: Furosemide 60mg BID; consider additional am dose after morning assessment or decrease in dosing - CXR suggestive of fluid overload with bibasilar atelectasis or scarring - Echo November 2015: EF 65-70, mildly calcified aortic valve, study was noted to be incomplete secondary to patient discomfort with positioning - Complete echo ordered; caution that patient may not be able to tolerate positioning well, and will likely be limited secondary to body habitus - Repeat CXR 2vw COPD, presumed stable - Based on presenting symptoms, including lack of productive cough, exacerbation is unlikely - DuoNebs QID while awake + accunebs q2h prn - Continue prednisone 5 mg daily home dose; no indication for increase steroids at time of admission Leukocytosis, chronicity unknown, present on admission, under evaluation - On admit: WBC 13.9; previous 05/22/2016 13.7 when on steroid therapy - Likely secondary to chronic steroid use - Continue to monitor for signs of infection Stage II CKD, chronic, presumed stable - On admit: Cr 1.10; prev values 05/2016 1.49, 1.52 - Continue to monitor with diuresis - Continue lisinopril 40mg daily Non-insulin using diabetes mellitus, chronic, presumed stable - A1c 05/2016: 10.8 - Home meds: Metformin 1 g twice daily - Holding metformin at this time; initiated low-dose correctional scale Gout, chronic, presumed stable - Resume allopurinol 100 mg daily Coronary artery disease status post myocardial infarction, chronic, presumed stable - EKG on admission did not show any ischemic changes - Continue daily aspirin Normocytic, normochromic anemia, chronicity unknown, present on admission, presumed stable - On admit: Hb 10.6, Hct 34.6, MCV 93.8, MCH 28.7 - Continue to monitor; defer any additional workup to the outpatient setting Restless legs, chronic, presumed stable - May be secondary to underlying anemia - Continue home magnesium therapy Reported chronic sinus infection, status unknown, present on admission, presumed stable - Pt reports long standing h/o sinus infection, not currently on tx - Likely defer further workup to outpatient setting - Consider CT sinus if sx worsen Goals of care, ongoing - Patient discussed that during this hospitalization she would like to complete a POLST form - LOREN comm request placed to provide form to patient to review - Please complete signatures prior to discharge PRN: Bowel, fever, pain, nausea DVT: Hep q8 GI: PPI, home dose Diet: Heart/carb Code: DNR/DNI Patient status: Due to severity of presenting symptoms, risk of adverse events, and likely course of care, anticipated length of stay exceeds two midnights; patient admitted as inpatient status Pain Evaluation: Adequate Pain Control GI Prophylaxis: Proton Pump Inhibitor VTE Prophylaxis: Sub-Q Heparin (Unfractionated) Resuscitation Status: DNR/DNI:Do Not Resuscitate/Intubate Attending Statement The patient was seen and examined together with Dr. Asher on 10/08 and I agree with the history, exam and plan as outlined in the note above. Sherrie Asher DO Oct 08, 2016 02:08 Dragan Chang MD Oct 08, 2016 04:05
[2016-10-08 05:42] LABS: BASOPHILS % (AUTO) 0.2 % (0-3); EOSINOPHILS % (AUTO) 4.1 % (0-5); MONOCYTES % (AUTO) 8.9 % (4-12); Mean Corpuscular Hemoglobin 29.4 pg (27.0-35.0); Mean Corpuscular Volume 93.5 fL (81-100); NEUTROPHILS % (AUTO) 71.7 % (40-74); Platelet Count 317 bil/L (150-400)
[2016-10-08] MEDS: Albuterol-Ipratropium 3 mL Inhalation Solution NEB SCH ×4 (07:19→19:52)
[2016-10-08] MEDS: Pantoprazole 40 mg ER24 Tablet PO SCH (08:05)
[2016-10-08] MEDS: Insulin LISPRO 300 Unit/3 mL Inj SUBQ SCH ×4 (08:05→22:07)
[2016-10-08] MEDS: predniSONE 5 mg Tablet PO SCH (08:05)
[2016-10-08] MEDS: Heparin 5,000 Unit/mL Inj SUBQ SCH ×2 (08:07→16:32)
[2016-10-08] MEDS ORDERED: Furosemide 10 mg/mL 4 mL Inj IVPUSH SCH (08:30)
--- NOTE | 2016-10-08 09:11 | NUR ---
Social Work-initial assessment/ multidisciplinary rounds: Data:See initial assessment. Pt is a 71 y/o female who was admitted on 10/08/16 for CHF and COPD per H&P. Pt's insurance is [facility] and PCP is Mitch Sow MD. EMR Reviewed. SW met with pt at bedside, SW role explained. Pt is alert and oriented x3. Pt resides at home with her daughter and grandchildren in a single level home where she remains independent with ADLS. Pt does not drive and does not use any DME. Pt has history with [facility], but no SNF history. Pt has no vermin exterminator care insurance or VA benefits. Pt has home O2 and nebulizer through [employer]. SW discussed DPOA/ advanced directive paperwork, pt has not completed this, SW provided her with paperwork. No concerns noted for pt's capacity for self care from Rn and MD, pt has been up independent in her room. Pt confirms her daughter will provide transport home. SW provided pt with discharge planning checklist and encouraged her to call with any questions,phone number provided. No anticipated discharge needs. SW will continue to follow if needs arise. Assessment:Pt who is independent at baseline. Plan:Pt to discharge home when medically stable via POV. No anticipated discharge needs. SW will continue to follow if needs arise. KARLEE Noguera Addendum: 10/08/16 at 0915 by TAYLER ADAMES Amended: Links added.
--- NOTE | 2016-10-08 12:28 | DRSVH ---
PROCEDURE: X-RAY CHEST, TWO VIEWS ([id number]) INDICATIONS: SHORT OF BREATH TECHNIQUE: 2 views of the chest were acquired. COMPARISON: [facility], CR, XR CHEST 1VW (PORTABLE), 05/24/2016, 7:40. [facility], CR, XR CHEST 1VW (PORTABLE), 05/21/2016, 17:02. [facility], CR, XR CHEST 1VW (PORT ABLE), 05/01/2016, 16:46. [facility], CR, XR CHEST 1VW (PORTABLE), 10/07/2016, 20:43. [facility], CR, CHEST 2VW, 11/16/2011, 10:23. FINDINGS: Surgical changes and devices: None. Lungs and pleura: Small bibasilar pleural effusions redemonstrated in there is been no significant in terval change in bibasilar patchy airspace opacities. No pneumothorax. Mediastinum: Mediastinal contours are normal. Heart size is normal. Bones and chest wall: No suspicious bony abnormalities. Soft tissues appear unremarkable. IMPRESSION: Small effusions redemonstrated and bibasilar airspace opacities consistent with compressi ve atelectasis versus pneumonia. Correlate clinically. Dictated by: Alexey Hargrove RRA Interpreted: Anabella Rivera MD on 10/08/2016 at 12:07 Approved by: Anabella Rivera MD, PhD on 10/08/2016 at 12:25
[2016-10-08] MEDS: acetaZOLAMIDE 250 mg Tablet PO SCH ×2 (12:43→19:44)
--- NOTE | 2016-10-08 17:55 | NUR ---
Activity/O2 Pt is SBA to [facility] for voiding following IV Lasix. Pt unable to increase activity level d/u increased fatigue, increased lower extremity edema and inability to lie flat. Pt continues to require 3 L O2 via NC, (baseline at home), Call light in reach, will continue to monitor. Addendum: 10/08/16 at 1842 by AYAZ GASTELUM RN Correction Pt has required 4 L O2 via NC to keep sats above 88%. Pt is on 3 L of O2 at home.
[2016-10-09] VITALS (11 sets, daily range): BP systolic 94–118; BP diastolic 53–65; PULSE 56–108; RESP 18–20; O2SAT 87–95
[2016-10-09] MEDS: Heparin 5,000 Unit/mL Inj SUBQ SCH ×3 (00:38→16:50)
--- NOTE | 2016-10-09 06:33 | NUR ---
Respiratory Maintaining SpO2 low-mid 90's @ rest on 4L NC. Reports mild SOB @ rest but states breathing improved since admit. Upright in recliner all shift with legs elevated to help with diereses. Currently resting without any complaints.
[2016-10-09 06:58] LABS: BASOPHILS % (AUTO) 0.2 % (0-3); EOSINOPHILS % (AUTO) 3.5 % (0-5); MONOCYTES % (AUTO) 8.8 % (4-12); Mean Corpuscular Hemoglobin 28.9 pg (27.0-35.0); Mean Corpuscular Volume 93.8 fL (81-100); NEUTROPHILS % (AUTO) 72.1 % (40-74); Platelet Count 306 bil/L (150-400)
[2016-10-09 07:16] LABS: Magnesium 2.3 mg/dL (1.6-2.6); Phosphorus 5.5 mg/dL (2.5-4.9)
[2016-10-09] MEDS: Albuterol-Ipratropium 3 mL Inhalation Solution NEB SCH ×4 (07:27→20:27)
[2016-10-09] MEDS ORDERED: Furosemide 10 mg/mL 4 mL Inj IVPUSH SCH (08:30)
[2016-10-09] MEDS: predniSONE 5 mg Tablet PO SCH (08:36)
[2016-10-09] MEDS: Pantoprazole 40 mg ER24 Tablet PO SCH (08:36)
[2016-10-09] MEDS: acetaZOLAMIDE 250 mg Tablet PO SCH (08:40)
[2016-10-09] MEDS: Insulin LISPRO 300 Unit/3 mL Inj SUBQ SCH ×4 (08:47→22:26)
[2016-10-09] MEDS: Furosemide 10 mg/mL 4 mL Inj IVPUSH SCH (11:03)
--- NOTE | 2016-10-09 12:06 | PCM.PNMED ---
Subjective Date of Service Oct 09, 2016 Subjective pt breathing okay, mildly improved from yesterday, still afraid of laying down, slept on the chair 94% on 4L NC pt denied cough, sputum, had i/o around net 1liter/d tried Diamox due to worsening contraction alkalosis with baseline hypercabia with COPD Exam Vital Signs Vital Sign - Last Date Time Temp Pulse Resp B/P Pulse Ox O2 Delivery O2 Flow Rate FiO2 10/09/16 11:20 83 18 91 Nasal Cannula 4.00 10/09/16 09:00 36.4 108/65 Intake and Output 10/08/16 10/08/16 10/09/16 Cumulative From/Thru 15:00 23:00 07:00 10/07/16 19:59 - 10/09/16 06:33 Intake Total 620 ml 400 ml 1140 ml Output Total 600 ml 1400 ml 2925 ml Balance 20 ml -1000 ml -1785 ml Intake Oral 620 ml 740 ml IV Total 400 ml 400 ml Output Urine Total 600 ml 1400 ml 2925 ml # Bowel Movements 1 0 1 Exam NAD, comfortably laying down on the chair mild JVD, MMM, no LAD RRR, nl s1, s2 no mrg bibasilar crackles, no wheezing S,ND,NT,normoactive BS+ warm, 1+ pitting edema up to knees, symmetric, nontender. scaly demarcated erythematous skin lesion on Left foot IVs and Medications Medications Reviewed: Medications were reviewed in detail Lab and Diagnostics Result Diagram: 10/09/1610 10/09/16 0610 Assessment & Plan Ms. Pettit is a pleasant 71-year-old female with a history of COPD, chronic hypoxemic respiratory failure, obstructive sleep apnea, non-insulin using diabetes, and preserved ejection fraction heart failure, presented to the emergency department with a progressively worsening shortness of breath with exertion and intermittent nonproductive cough,, without any associated fever, or chills. She was admitted for evaluation and treatment of suspected exacerbation of preserved ejection fraction heart failure. acute, active Acute on chronic hypoxemic hypercarbic respiratory failure, POA, due to acute decompensated HFpEF, based on exam, CXR findings-PVC. pt received lasix 80mg iv in ED followed by 60mg iv, received Diamox 250mg bid on 10/08. Echo November 2015 : EF 65-70, mildly calcified aortic valve, study was noted to be incomplete secondary to patient discomfort with positioning -will increase to lasix 80mg iv qd, consider bid dosing based on i/o -telemetry -replete lytes as needed -awaits repeat echo -O2 supplement target <95% LETICIA on CKD, due to diuretics, sCR increased 1.10 to 1.35 today, -will monitor closely, avoid other renal toxins, adjust meds renally. -Lisinopril decreased from 40 to 20mg today minor Tinea pedis on Left foot, start Clotrimazole oint bid chronic, stable COPD, presumed stable - Based on presenting symptoms, including lack of productive cough, exacerbation is unlikely - DuoNebs QID while awake + accunebs q2h prn - Continue prednisone 5 mg daily home dose; no indication for increase steroids at time of admission Leukocytosis, chronicity unknown, present on admission, under evaluation - On admit: WBC 13.9; previous 05/22/2016 13.7 when on steroid therapy - Likely secondary to chronic steroid use - Continue to monitor for signs of infection Non-insulin using diabetes mellitus, chronic, presumed stable - A1c 05/2016: 10.8 - Home meds: Metformin 1 g twice daily - Holding metformin at this time; initiated low-dose correctional scale Gout, chronic, presumed stable - Resume allopurinol 100 mg daily Coronary artery disease status post myocardial infarction, chronic, presumed stable - EKG on admission did not show any ischemic changes - Continue daily aspirin Normocytic, normochromic anemia, chronicity unknown, present on admission, presumed stable - On admit: Hb 10.6, Hct 34.6, MCV 93.8, MCH 28.7 - Continue to monitor; defer any additional workup to the outpatient setting Restless legs, chronic, presumed stable - May be secondary to underlying anemia - Continue home magnesium therapy Reported chronic sinus infection, status unknown, present on admission, presumed stable - Pt reports long standing h/o sinus infection, not currently on tx - Likely defer further workup to outpatient setting - Consider CT sinus if sx worsen Goals of care, ongoing - Patient discussed that during this hospitalization she would like to complete a POLST form - LOREN comm request placed to provide form to patient to review -complete signatures prior to discharge PRN: Bowel, fever, pain, nausea DVT: Hep q8 GI: PPI, home dose Diet: Heart/carb Code: DNR/DNI Patient status: likely 3-4more days with diuresis course GI Prophylaxis: Proton Pump Inhibitor VTE Prophylaxis: Sub-Q Heparin (Unfractionated) Resuscitation Status: DNR/DNI:Do Not Resuscitate/Intubate Time spent 35min Valentine Sharpe MD Oct 09, 2016 12:06
--- NOTE | 2016-10-09 18:14 | NUR ---
Patient diuresed today. Started off on 3L NC but moved to 4L. Her home dose is 3L. She states that the oxygen blowing into her nose is very drying and irritating, water was added to the line for relief. CBG's were high today, in the 350 range for lunch and dinner. Is eager to get her diuretics completed and put her edematous legs up in the bed for the evening.
[2016-10-09] MEDS ORDERED: Furosemide 10 mg/mL 10 mL Inj IVPUSH ONE (19:15)
[2016-10-09] MEDS ORDERED: Potassium Chloride 20 mEq SR Tablet PO ONE (19:15)
[2016-10-09] MEDS ORDERED: Furosemide 10 mg/mL 4 mL Inj IVPUSH ONE (19:15)
[2016-10-09] MEDS: CLOTRIMAZOLE 1% TOPICAL SCH (19:38)
[2016-10-10] VITALS (13 sets, daily range): BP systolic 92–147; BP diastolic 51–80; PULSE 51–95; RESP 16–24; O2SAT 91–97
[2016-10-10] MEDS: Heparin 5,000 Unit/mL Inj SUBQ SCH ×4 (00:11→23:45)
[2016-10-10 07:00] LABS: BASOPHILS % (AUTO) 0.2 % (0-3); EOSINOPHILS % (AUTO) 3.3 % (0-5); MONOCYTES % (AUTO) 8.5 % (4-12); Mean Corpuscular Hemoglobin 29.2 pg (27.0-35.0); Mean Corpuscular Volume 94.4 fL (81-100); NEUTROPHILS % (AUTO) 74.6 % (40-74); Platelet Count 337 bil/L (150-400)
[2016-10-10 07:17] LABS: Magnesium 2.1 mg/dL (1.6-2.6)
[2016-10-10] MEDS: predniSONE 5 mg Tablet PO SCH (07:45)
[2016-10-10] MEDS: Pantoprazole 40 mg ER24 Tablet PO SCH (07:45)
[2016-10-10] MEDS: Insulin LISPRO 300 Unit/3 mL Inj SUBQ SCH ×4 (07:46→20:53)
[2016-10-10] MEDS: CLOTRIMAZOLE 1% TOPICAL SCH ×2 (07:47→20:45)
[2016-10-10] MEDS: Furosemide 10 mg/mL 4 mL Inj IVPUSH SCH (07:47)
[2016-10-10] MEDS: Albuterol-Ipratropium 3 mL Inhalation Solution NEB SCH ×4 (07:54→20:36)
[2016-10-10] MEDS ORDERED: Sodium Chloride NAS 45 mL Spray NASAL PRN (11:30)
[2016-10-10] MEDS ORDERED: Sodium Chloride NAS 45 mL Spray NASAL ONE (11:30)
--- NOTE | 2016-10-10 11:32 | PCM.PNMED ---
Subjective Date of Service Oct 10, 2016 Subjective pt thinks her breathing is better today but not much maintained O2sat on 2-4L NC had brisk UOP with 80mg iv lasix twice yesterday c/o stuffiness on bilateral nare chronically, thinks this is her major problem of difficulty of sleeping leg swelling is improving. afraid of laying down on bed Exam Vital Signs Vital Sign - Last Date Time Temp Pulse Resp B/P Pulse Ox O2 Delivery O2 Flow Rate FiO2 10/10/16 10:11 90 10/10/16 08:30 Supplement Oxygen 10/10/16 08:12 36.8 18 100/66 92 3.00 Intake and Output 10/09/16 10/09/16 10/10/16 Cumulative From/Thru 15:00 23:00 07:00 10/07/16 19:59 - 10/10/16 05:38 Intake Total 1272 ml 650 ml 3062 ml Output Total 1050 ml 600 ml 4575 ml Balance 222 ml 50 ml -1513 ml Intake Oral 1272 ml 650 ml 2662 ml IV Total 400 ml Output Urine Total 1050 ml 600 ml 4575 ml # Bowel Movements 1 Exam NAD, comfortably laying down on the chair mild JVD, MMM, no LAD RRR, nl s1, s2 no mrg bibasilar crackles, no wheezing S,ND,NT,normoactive BS+ warm, 1+ pitting edema up to mid hunter, symmetric, nontender. scaly demarcated erythematous skin lesion on Left foot IVs and Medications Medications Reviewed: Medications were reviewed in detail Lab and Diagnostics Result Diagram: 10/10/1662510/10/16625 Assessment & Plan Ms. Pettit is a pleasant 71-year-old female with a history of COPD, chronic hypoxemic respiratory failure, obstructive sleep apnea, non-insulin using diabetes, and preserved ejection fraction heart failure, presented to the emergency department with a progressively worsening shortness of breath with exertion and intermittent nonproductive cough,, without any associated fever, or chills. She was admitted for evaluation and treatment of suspected exacerbation of preserved ejection fraction heart failure. acute, active Acute on chronic hypoxemic hypercarbic respiratory failure, POA, due to acute decompensated HFpEF, based on exam, CXR findings-PVC. pt received lasix 80mg iv in ED followed by 60mg iv, received Diamox 250mg bid on 10/08. Echo November 2015 : EF 65-70, mildly calcified aortic valve, study was noted to be incomplete secondary to patient discomfort with positioning -pt seemed to respond to lasix 80mg iv, given LETICIA, will try one dose today and hold for now -telemetry -replete lytes as needed -awaits repeat echo -O2 supplement target <95% LETICIA on CKD, due to diuretics, -sCR further increased 1.10 to 1.44, alkalosis worsened to [id number] -will monitor closely, avoid other renal toxins, adjust meds renally. -Lisinopril decreased from 40 to 20mg 10/09 minor Tinea pedis on Left foot, start Clotrimazole oint bid chronic nasal congesttion with PND, POA, start NS nasal spray bid chronic, stable COPD, presumed stable - Based on presenting symptoms, including lack of productive cough, exacerbation is unlikely - DuoNebs QID while awake + accunebs q2h prn - Continue prednisone 5 mg daily home dose; no indication for increase steroids at time of admission Leukocytosis, chronicity unknown, present on admission, under evaluation - On admit: WBC 13.9; previous 05/22/2016 13.7 when on steroid therapy - Likely secondary to chronic steroid use - Continue to monitor for signs of infection Non-insulin using diabetes mellitus, chronic, presumed stable - A1c 05/2016: 10.8 - Home meds: Metformin 1 g twice daily - Holding metformin at this time; initiated low-dose correctional scale Gout, chronic, presumed stable - Resume allopurinol 100 mg daily Coronary artery disease status post myocardial infarction, chronic, presumed stable - EKG on admission did not show any ischemic changes - Continue daily aspirin Normocytic, normochromic anemia, chronicity unknown, present on admission, presumed stable - On admit: Hb 10.6, Hct 34.6, MCV 93.8, MCH 28.7 - Continue to monitor; defer any additional workup to the outpatient setting Restless legs, chronic, presumed stable - May be secondary to underlying anemia - Continue home magnesium therapy Reported chronic sinus infection, status unknown, present on admission, presumed stable - Pt reports long standing h/o sinus infection, not currently on tx - Likely defer further workup to outpatient setting - Consider CT sinus if sx worsen Goals of care, ongoing - Patient discussed that during this hospitalization she would like to complete a POLST form - LOREN comm request placed to provide form to patient to review -complete signatures prior to discharge PRN: Bowel, fever, pain, nausea DVT: Hep q8 GI: PPI, home dose Diet: Heart/carb Code: DNR/DNI Patient status: likely 2-3more days with diuresis course GI Prophylaxis: Proton Pump Inhibitor VTE Prophylaxis: Sub-Q Heparin (Unfractionated) Resuscitation Status: DNR/DNI:Do Not Resuscitate/Intubate Time spent 35min Valentine Sharpe MD Oct 10, 2016 11:32
--- NOTE | 2016-10-10 17:33 | NUR ---
Congestion Patient had complaints of morning nasal congestion. MD ordered Saline nasal spray. Medication was administered. Patient coughed up moderate amount of clear thick phlegm.
[2016-10-11] VITALS (11 sets, daily range): BP systolic 107–132; BP diastolic 62–78; PULSE 79–102; RESP 18–21; O2SAT 89–95
--- NOTE | 2016-10-11 05:58 | NUR ---
PT ACTIVITY/RESPIRATORY Pt has slept in the recliner, as she does at home. Pt has been up to BSC w/ minimal assist, mostly independent. Pt dyspneic with activity, but recovers fairly quickly after resting. Pt remains of 4L. Pt LS coarse, rhonchi, primarily on Right side. Continue to monitor.
[2016-10-11 06:50] LABS: Magnesium 2.2 mg/dL (1.6-2.6)
[2016-10-11] MEDS: Albuterol-Ipratropium 3 mL Inhalation Solution NEB SCH ×4 (08:40→20:02)
[2016-10-11] MEDS ORDERED: Glucose 40% Oral Gel 15 Gm Tube PO PRN (09:00)
[2016-10-11] MEDS ORDERED: Insulin GLARgine 100 Unit/mL Syringe SUBQ ONE (09:00)
[2016-10-11] MEDS ORDERED: predniSONE 20 mg Tablet PO ONE (09:00)
[2016-10-11] MEDS: Pantoprazole 40 mg ER24 Tablet PO SCH (09:01)
[2016-10-11] MEDS: CLOTRIMAZOLE 1% TOPICAL SCH ×2 (09:02→20:54)
[2016-10-11] MEDS: Heparin 5,000 Unit/mL Inj SUBQ SCH ×2 (09:02→16:33)
[2016-10-11] MEDS: Insulin LISPRO 300 Unit/3 mL Inj SUBQ SCH ×3 (09:03→21:01)
[2016-10-11] MEDS: Fluticasone-Salmererol 250-50 Inhaler INHALATION SCH ×2 (09:20→20:53)
[2016-10-11] MEDS: acetaZOLAMIDE 250 mg Tablet PO SCH ×2 (09:20→20:52)
[2016-10-11] MEDS: Fluticasone 0.05% 15 Spray/2 Gm 16 Gm Nasal Spray NASAL SCH ×2 (09:20→20:53)
--- NOTE | 2016-10-11 11:37 | PCM.PNMED ---
Subjective Date of Service Oct 11, 2016 Subjective pt still dyspnea, thinks her breathing is mildly improved. leg swelling is significantly improved. pt never tried other inhalers than Bronchodilators started Advair, Flonase, Prednisone increased from 5 to 60mg today ordered Diamox given high bicarb, Exam Vital Signs Vital Sign - Last Date Time Temp Pulse Resp B/P Pulse Ox O2 Delivery O2 Flow Rate FiO2 10/11/16 09:07 83 10/11/16 08:30 18 93 Nasal Cannula 4.00 10/11/16 08:22 36.4 124/78 Intake and Output 10/10/16 10/10/16 10/11/16 Cumulative From/Thru 15:00 23:00 07:00 10/07/16 19:59 - 10/11/16 06:33 Intake Total 1392 ml 250 ml 4704 ml Output Total 1075 ml 600 ml 6250 ml Balance 317 ml -350 ml -1546 ml Intake Oral 1380 ml 250 ml 4292 ml IV Total 12 ml 412 ml Output Urine Total 1075 ml 600 ml 6250 ml # Bowel Movements 1 Exam NAD, comfortably laying down on the chair mild JVD, MMM, no LAD RRR, nl s1, s2 no mrg bibasilar crackles, polyphasic diffuse exp wheezing S,ND,NT,normoactive BS+ warm, 1+ pitting edema up to 1/3 hunter distal, symmetric, nontender. scaly demarcated erythematous skin lesion on Left foot IVs and Medications Medications Reviewed: Medications were reviewed in detail Lab and Diagnostics Result Diagram: 10/10/1662510/11/16 0608 Assessment & Plan Ms. Pettit is a pleasant 71-year-old female with a history of COPD, chronic hypoxemic respiratory failure, obstructive sleep apnea, non-insulin using diabetes, and preserved ejection fraction heart failure, presented to the emergency department with a progressively worsening shortness of breath with exertion and intermittent nonproductive cough,, without any associated fever, or chills. She was admitted for evaluation and treatment of suspected exacerbation of preserved ejection fraction heart failure. acute, active Acute on chronic hypoxemic hypercarbic respiratory failure, POA, likely multifactorial: initially more suspicion for acute decompensated HFpEF, based on exam, CXR findings-PVC but proBNP very unremarkable. pt received lasix 80mg iv in ED followed by 60mg iv, received Diamox 250mg bid on 10/08. Echo November 2015: EF 65-70, mildly calcified aortic valve, study was noted to be incomplete secondary to patient discomfort with positioning. Even with aggressive diuretics , pt symptoms very mildly improved, having exp wheezing, therefore tx for COPD exacerbation started 10/11. -pt seemed to respond to lasix 80mg iv given -10/10, stopped due to LETICIA -will continue diuresis with Diamox 250mg bid -telemetry -replete lytes as needed -awaits repeat echo -O2 supplement target <95% COPD, POA, likely COPD exacerbation as above, -continue DuoNebs QID while awake + accunebs q2h prn - increased prednisone 5 mg to 60mg daily, likely need prolonged taper given chronic steroid use, - started Advair 2puffs bid, - pt needs close FU with Dr.Parimi KELLY on CKD, due to diuretics, -sCR further increased from 1.10, today 1.41 mildly improved, alkalosis worsened to [id number] -will monitor closely, avoid other renal toxins, adjust meds renally. -Lisinopril decreased from 40 to 20mg 10/09, stopped today minor Tinea pedis on Left foot, start Clotrimazole oint bid chronic nasal congesttion with PND, POA, start NS nasal spray bid, added Flonase Non-insulin using diabetes mellitus, A1c 05/2016: 10.8, -glc not in target 200s, expect to increase further with high dose steroid - Home meds: Metformin 1 g twice daily - Holding metformin at this time; -chg low-dose correctional scale to medium -start lantus 5unit daily chronic, stable Leukocytosis, chronicity unknown, present on admission, under evaluation - On admit: WBC 13.9; previous 05/22/2016 13.7 when on steroid therapy - Likely secondary to chronic steroid use - Continue to monitor for signs of infection Gout, chronic, presumed stable - Resume allopurinol 100 mg daily Coronary artery disease status post myocardial infarction, chronic, presumed stable - EKG on admission did not show any ischemic changes - Continue daily aspirin Normocytic, normochromic anemia, chronicity unknown, present on admission, presumed stable - On admit: Hb 10.6, Hct 34.6, MCV 93.8, MCH 28.7 - Continue to monitor; defer any additional workup to the outpatient setting Restless legs, chronic, presumed stable - May be secondary to underlying anemia - Continue home magnesium therapy Reported chronic sinus infection, status unknown, present on admission, presumed stable - Pt reports long standing h/o sinus infection, not currently on tx - Likely defer further workup to outpatient setting - Consider CT sinus if sx worsen Goals of care, ongoing - Patient discussed that during this hospitalization she would like to complete a POLST form - LOREN comm request placed to provide form to patient to review -complete signatures prior to discharge PRN: Bowel, fever, pain, nausea DVT: Hep q8 GI: PPI, home dose Diet: Heart/carb Code: DNR/DNI Patient status: likely 2-3more days with diuresis course, tx for COPD GI Prophylaxis: Proton Pump Inhibitor VTE Prophylaxis: Sub-Q Heparin (Unfractionated) Resuscitation Status: DNR/DNI:Do Not Resuscitate/Intubate Time spent 35min Valentine Sharpe MD Oct 11, 2016 11:32
[2016-10-11] MEDS ORDERED: Insulin LISPRO 300 Unit/3 mL Inj SUBQ SCH (12:00)
--- NOTE | 2016-10-11 12:55 | DRSVH ---
PROCEDURE: X-RAY CHEST ONE VIEW, PORTABLE ([id number]) INDICATIONS: follow up for pul edema TECHNIQUE: One view of the chest was acquired. COMPARISON: [facility], CR, XR CHEST 2VW, 10/08/2016, 9:30. [facility], CR, XR CHEST 1VW (PORTABLE), 10/07/2016, 20:43. FINDINGS: Surgical changes and devices: None. Lungs and pleura: Bilateral interstitial infiltrates appear unchanged. No pleural effusions or pneum othorax. Mediastinum: Mediastinal contours appear normal. Heart size is mildly increased. Bones and chest wall: No suspicious bony lesions. Overlying soft tissues appear unremarkable. IMPRESSION: Persistent mild congestive heart failure. Dictated by: Earl Gabriel M.D. on 10/11/2016 at 12:48 Approved by: Earl Gabriel M.D. on 10/11/2016 at 12:53
[2016-10-11] MEDS ORDERED: Insulin Human REGular 300 Unit/3 mL Inj SUBQ SCH (17:00)
[2016-10-11] MEDS ORDERED: Insulin LISPRO 300 Unit/3 mL Inj SUBQ ONE (17:40)
--- NOTE | 2016-10-11 18:10 | NUR ---
Hyperglycemia Hyperglycemia present after high dose prednisone admin, Provider notified, Insulin doses adjusted, ACHS checks continue at this time.
[2016-10-12] VITALS (14 sets, daily range): BP systolic 104–137; BP diastolic 47–82; PULSE 71–92; RESP 18–20; O2SAT 88–95
[2016-10-12] MEDS: Heparin 5,000 Unit/mL Inj SUBQ SCH ×3 (01:33→18:00)
[2016-10-12 06:53] LABS: BASOPHILS % (AUTO) 0.2 % (0-3); EOSINOPHILS % (AUTO) 0.8 % (0-5); MONOCYTES % (AUTO) 9.5 % (4-12); Mean Corpuscular Hemoglobin 29.1 pg (27.0-35.0); Mean Corpuscular Volume 94.2 fL (81-100); NEUTROPHILS % (AUTO) 78.7 % (40-74); Platelet Count 336 bil/L (150-400)
[2016-10-12 07:15] LABS: Magnesium 2.1 mg/dL (1.6-2.6)
[2016-10-12] MEDS: Insulin LISPRO 300 Unit/3 mL Inj SUBQ SCH ×4 (07:54→21:32)
[2016-10-12] MEDS: Insulin GLARgine 100 Unit/mL Syringe SUBQ SCH (07:54)
[2016-10-12] MEDS: acetaZOLAMIDE 250 mg Tablet PO SCH ×2 (07:55→20:18)
[2016-10-12] MEDS: Pantoprazole 40 mg ER24 Tablet PO SCH (07:55)
[2016-10-12] MEDS: Fluticasone-Salmererol 250-50 Inhaler INHALATION SCH ×2 (07:55→20:19)
[2016-10-12] MEDS: Fluticasone 0.05% 15 Spray/2 Gm 16 Gm Nasal Spray NASAL SCH ×2 (07:55→20:19)
[2016-10-12] MEDS: predniSONE 20 mg Tablet PO SCH (07:56)
[2016-10-12] MEDS: CLOTRIMAZOLE 1% TOPICAL SCH ×2 (07:58→20:20)
[2016-10-12] MEDS: Albuterol-Ipratropium 3 mL Inhalation Solution NEB SCH (08:01)
[2016-10-12] MEDS ORDERED: Insulin GLARgine 100 Unit/mL Syringe SUBQ SCH (08:30)
--- NOTE | 2016-10-12 09:02 | PCM.PNMED ---
Subjective Date of Service Oct 12, 2016 Subjective pt is doing okay, breathing better, denied cough, sputum, i/o net 450cc only on Diamox tolerated Advair Exam Vital Signs Vital Sign - Last Date Time Temp Pulse Resp B/P Pulse Ox O2 Delivery O2 Flow Rate FiO2 10/12/16 08:37 36.5 82 18 108/47 90 Nasal Cannula 10/12/16 04:13 3.00 Intake and Output 10/11/16 10/11/16 10/12/16 Cumulative From/Thru 15:00 23:00 07:00 10/07/16 19:59 - 10/12/16 05:45 Intake Total 822 ml 520 ml 6046 ml Output Total 625 ml 950 ml 7825 ml Balance 197 ml -430 ml -1779 ml Intake Oral 822 ml 520 ml 5634 ml IV Total 412 ml Output Urine Total 625 ml 950 ml 7825 ml # Bowel Movements 1 Exam NAD, comfortably laying down on the chair mild JVD, MMM, no LAD RRR, nl s1, s2 no mrg bibasilar crackles, polyphasic diffuse exp wheezing S,ND,NT,normoactive BS+ warm, 1+ pitting edema up to 1/3 hunter distal, symmetric, nontender. scaly demarcated erythematous skin lesion on Left foot IVs and Medications Medications Reviewed: Medications were reviewed in detail Lab and Diagnostics Result Diagram: 10/12/1660910/12/16609 Assessment & Plan Ms. Pettit is a pleasant 71-year-old female with a history of COPD, chronic hypoxemic respiratory failure, obstructive sleep apnea, non-insulin using diabetes, and preserved ejection fraction heart failure, presented to the emergency department with a progressively worsening shortness of breath with exertion and intermittent nonproductive cough,, without any associated fever, or chills. She was admitted for evaluation and treatment of suspected exacerbation of preserved ejection fraction heart failure. acute, active Acute on chronic hypoxemic hypercarbic respiratory failure, POA, likely multifactorial: initially more suspicion for acute decompensated HFpEF, based on exam, CXR findings-PVC but proBNP very unremarkable. pt received lasix 80mg iv in ED followed by 60mg iv, received Diamox 250mg bid on 10/08. Echo November 2015: EF 65-70, mildly calcified aortic valve, study was noted to be incomplete secondary to patient discomfort with positioning. Even with aggressive diuretics , pt symptoms very mildly improved, having exp wheezing, therefore tx for COPD exacerbation started 10/11. -pt seemed to respond to lasix 80mg iv given -10/10, stopped due to LETICIA, clinically stable, mildly remained euvolemic -continue diuresis with Diamox 250mg bid today. -telemetry -replete lytes as needed -awaits repeat echo -O2 supplement target <95% COPD, POA, likely COPD exacerbation as above, -chg duonebs q4h prn - increased prednisone 5 mg to 60mg daily 10/11, likely need prolonged taper given chronic steroid use, - started Advair 2puffs bid 10/11 - pt needs close FU with LETICIA on CKD, due to diuretics, sCR baseline 1.10, -renal function mildly improving after holding lasix, 10/10, alkalosis worsened -will monitor closely, avoid other renal toxins, adjust meds renally. -Lisinopril decreased from 40 to 20mg 10/09, stopped 10/11 minor Tinea pedis on Left foot, start Clotrimazole oint bid chronic nasal congesttion with PND, POA, start NS nasal spray bid, added Flonase Non-insulin using diabetes mellitus, A1c 05/2016: 10.8, -glc uncontrolled with increased steroid dose, - Home meds: Metformin 1 g twice daily, Holding metformin at this time; -chg low-dose correctional scale to high -lantus 5unit daily to 15unit daily chronic, stable Leukocytosis, chronicity unknown, present on admission, under evaluation - On admit: WBC 13.9; previous 05/22/2016 13.7 when on steroid therapy - Likely secondary to chronic steroid use - Continue to monitor for signs of infection Gout, chronic, presumed stable - Resume allopurinol 100 mg daily Coronary artery disease status post myocardial infarction, chronic, presumed stable - EKG on admission did not show any ischemic changes - Continue daily aspirin Normocytic, normochromic anemia, chronicity unknown, present on admission, presumed stable - On admit: Hb 10.6, Hct 34.6, MCV 93.8, MCH 28.7 - Continue to monitor; defer any additional workup to the outpatient setting Restless legs, chronic, presumed stable - May be secondary to underlying anemia - Continue home magnesium therapy Reported chronic sinus infection, status unknown, present on admission, presumed stable - Pt reports long standing h/o sinus infection, not currently on tx - Likely defer further workup to outpatient setting - Consider CT sinus if sx worsen Goals of care, ongoing - Patient discussed that during this hospitalization she would like to complete a POLST form - LOREN comm request placed to provide form to patient to review -complete signatures prior to discharge PRN: Bowel, fever, pain, nausea DVT: Hep q8 GI: PPI, home dose Diet: Heart/carb Code: DNR/DNI Patient status: likely 1-2more days with diuresis course, tx for COPD GI Prophylaxis: Proton Pump Inhibitor VTE Prophylaxis: Sub-Q Heparin (Unfractionated) Resuscitation Status: DNR/DNI:Do Not Resuscitate/Intubate Time spent 35min Valentine Sharpe MD Oct 12, 2016 09:02
--- NOTE | 2016-10-12 12:00 | NUR ---
PEDIATRICIAN/MEDICAL DOCTOR witnessed [facility] signature. Eulalia Houston PEDIATRICIAN/MEDICAL DOCTOR
--- NOTE | 2016-10-12 12:09 | NUR ---
Social Work- Continued D/C Planning Data: EMR reviewed. Pt is on day 4 of hospitalization. Pt discussed in multidisciplinary rounds, pt is not medically ready for d/c today, anticipate 2 more days. SW is following for HH needs given pt's CHF and COPD diagnoses. Pt anticipated to d/c home with her daughter to transport via POV. No SW orders have been received at this time. SW met with pt today to assess for unmet needs, no needs identified. SW completed IMM with pt. SW continues to follow for d/c planning needs. Assessment: Pt who is independent with ADLs and self-care Plan: Pt anticipated to d/c home with her daughter, R/O HH given her CHF and COPD diagnoses. SW continues to follow for d/c planning needs. Eulalia Houston MSW
--- NOTE | 2016-10-12 15:18 | NUR ---
NURSING DAYS 7-7 Patient has had new IV start on left forearm, ECHO done today results still pending. RA sats mid-90'2, 1L at [facility] for DM. Blood sugar elevated 395 at lunch but patient began eating before BG check. Topical Tx for left foot fungi, output urine 800ml BSC so far, patient sleeps and spending most of day in recliner. Telemetry SR 60-80, Cr 1.3, BUN 49.
--- NOTE | 2016-10-12 15:54 | DRSVH ---
[facility] [address] [place] [place] [address] Echocardiogram Report Name: ROSAS FUENTES Date: 10/12/2016 Height: 63 in Hospital Exam Location: [facility] Weight: 231 lb Gender: Female BSA: 2.1 m2 : 1945 Age: 71 yrs BP: 113/72 mmHg Reason For Study: Congestive Heart Failure, Dyspnea History: COPD, DM Ordering Physician: Performed By: Trinity Melgar Referring Physician: Mitch Sow Interpretation Summary Technically difficult study 1. Grossly normal left ventricular size and systolic function. 2. The right ventricle is not well visualized to estimate size. With limited views, the RV function is probably normal. Unable to estimate RVSP 3. None of the valve were optimally visualized. Compared to the previous study (which was also technically difficult), no appreciable change Procedure: A two-dimensional transthoracic echocardiogram with color flow and Doppler was performed. The study quality was technically difficult. A contrast injection of Definity was performed to improve assessment of LV function. Comparison is made with the echocardiogram of 11/21/2015 and 12/28/2014. The patient was in normal sinus rhythm during the exam. Left Ventricle: The left ventricle is grossly normal size. Mildly elevated outflow tract velocities. The left ventricular ejection fraction is grossly normal. Regional wall motion abnormalities cannot be excluded due to limited visualization. Assessment of diastolic parameters indicates a relaxation abnormality of the left ventricle, consistent with normal filling pressures. Right Ventricle: The right ventricle is not well visualized. Not optimally visualized but function is probably normal. Atria: The left atrium is mildly dilated. Right atrium not well visualized. Mitral Valve: The mitral valve is not well visualized. The mitral valve is grossly normal. Aortic Valve: The aortic valve is not well visualized. The aortic valve is mildly calcified. Mean gradient is 10.23. Tricuspid Valve: The tricuspid valve is not well visualized. Pulmonary artery pressures cannot be estimated because of the lack of a measurable TR jet velocity. Pulmonic Valve: The pulmonic valve is not well visualized. Great Vessels: The aortic root is normal size. The ascending aorta could not be visualized. Pericardium/ Pleura There is no pericardial effusion. MMode/2D Measurements & Calculations Ao root diam: 2.9 cm LA A2 area: 22.3 cm LA A4 area: 26.6 cm LA length (vol): 6.9 cm LA vol: 72.5 ml LA vol index: 35.2 ml/m2 Doppler Measurements & Calculations Ao V2 max MV E max ramana MV E/A: 0.74 PA V2 max : 262.8 cm/sec : 72.8 cm/sec Med Peak E' Ramana : 135.5 cm/sec Ao max PG MV A max ramana PA mean PG : 27.6 mmHg : 98.5 cm/sec E/E' med: 12.7 Ao mean PG MV P1/2t: 77.7 msec Lat Peak E' Ramana PA Accel Time : 10.2 mmHg : 0.12 sec LVOT Max Ramana E/E' lat: 6.2 : 150.4 cm/sec E/e' average: 9.4 sev ratio: 0.71 MV dec time MV P1/2t max ramana Ao V2 mean LV V1 max PG : 0.26 sec : 135.3 cm/sec Ao V2 VTI: 39.0 cm LV V1 VTI MVA(P1/2t): 2.8 cm2 : 27.7 cm PA V2 mean : 76.0 cm/sec Reading Physician:03:53 PM
[2016-10-12] MEDS: Albuterol-Ipratropium 3 mL Inhalation Solution NEB PRN (20:05)
[2016-10-13] VITALS (13 sets, daily range): BP systolic 109–163; BP diastolic 64–73; PULSE 64–103; RESP 18–20; O2SAT 90–96
[2016-10-13] MEDS: Heparin 5,000 Unit/mL Inj SUBQ SCH ×3 (01:09→16:43)
--- NOTE | 2016-10-13 05:38 | NUR ---
Uneventful Night/O2 Titration Pt denies sob at rest, some SOB on exertion,but improved since admission per pt, no prn NEB needed overnight. Mild nonproductive cough. Denies any pain, chest pressure,nausea,fever or chills. Moderately decreased lung sounds bilaterally, some crackles at bilateral LLs posteriorly, no wheezes. Tele: SR 70S-90S, IVCD,some PACs. No murmur. 1+ pitting edema at bilateral LEs. Pt sleeping in recliner. VSS, afebrile. COPD and used O2 3l at night at home, SPO2 89-94% on O2 3L, Titrate O2 to 2L SPO2 90-93% with RUBBER BLOCK LAYER monitoring.
[2016-10-13 07:12] LABS: Magnesium 2.1 mg/dL (1.6-2.6)
[2016-10-13 07:51] LABS: BASOPHILS % (AUTO) 0.3 % (0-3); EOSINOPHILS % (AUTO) 1.5 % (0-5); MONOCYTES % (AUTO) 8.7 % (4-12); Mean Corpuscular Hemoglobin 28.6 pg (27.0-35.0); Mean Corpuscular Volume 94.3 fL (81-100); NEUTROPHILS % (AUTO) 70.4 % (40-74); Platelet Count 380 bil/L (150-400)
[2016-10-13] MEDS: Insulin GLARgine 100 Unit/mL Syringe SUBQ SCH (07:54)
[2016-10-13] MEDS: Insulin LISPRO 300 Unit/3 mL Inj SUBQ SCH ×4 (07:54→21:54)
[2016-10-13] MEDS: acetaZOLAMIDE 250 mg Tablet PO SCH ×2 (07:55→20:00)
[2016-10-13] MEDS: predniSONE 20 mg Tablet PO SCH (07:56)
[2016-10-13] MEDS: Pantoprazole 40 mg ER24 Tablet PO SCH (07:56)
[2016-10-13] MEDS: Fluticasone 0.05% 15 Spray/2 Gm 16 Gm Nasal Spray NASAL SCH ×2 (07:57→20:01)
[2016-10-13] MEDS: Fluticasone-Salmererol 250-50 Inhaler INHALATION SCH ×2 (07:57→20:01)
[2016-10-13] MEDS: CLOTRIMAZOLE 1% TOPICAL SCH ×2 (07:57→20:01)
[2016-10-13] MEDS: Albuterol-Ipratropium 3 mL Inhalation Solution NEB PRN ×3 (08:37→20:25)
--- NOTE | 2016-10-13 09:00 | PCM.PNMED ---
Subjective Date of Service Oct 13, 2016 Subjective pt thinks breathing is close to baseline but not yet, still has significant leg swelling. net i/o -500cc with Diamox, renal function also improving. glc better wtih current tx Exam Vital Signs Vital Sign - Last Date Time Temp Pulse Resp B/P Pulse Ox O2 Delivery O2 Flow Rate FiO2 10/13/16 08:37 88 18 93 Nasal Cannula 3.00 10/13/16 05:28 36.4 109/65 Intake and Output 10/12/16 10/12/16 10/13/16 Cumulative From/Thru 15:00 23:00 07:00 10/07/16 19:59 - 10/13/16 06:36 Intake Total 550 ml 400 ml 6996 ml Output Total 750 ml 1000 ml 9575 ml Balance -200 ml -600 ml -2579 ml Intake Oral 550 ml 400 ml 6584 ml IV Total 412 ml Output Urine Total 750 ml 1000 ml 9575 ml # Bowel Movements 1 Exam NAD, comfortably laying down on the chair mild JVD, MMM, no LAD RRR, nl s1, s2 no mrg bibasilar crackles, no wheezing S,ND,NT,normoactive BS+ warm, 1+ pitting edema up to 1/3 hunter distal, symmetric, nontender. scaly demarcated erythematous skin lesion on Left foot IVs and Medications Medications Reviewed: Medications were reviewed in detail Lab and Diagnostics Result Diagram: 10/13/1660910/13/16609 Assessment & Plan Ms. Pettit is a pleasant 71-year-old female with a history of COPD, chronic hypoxemic respiratory failure, obstructive sleep apnea, non-insulin using diabetes, and preserved ejection fraction heart failure, presented to the emergency department with a progressively worsening shortness of breath with exertion and intermittent nonproductive cough,, without any associated fever, or chills. She was admitted for evaluation and treatment of suspected exacerbation of preserved ejection fraction heart failure. acute, active Acute on chronic hypoxemic hypercarbic respiratory failure, POA, likely multifactorial: initially more suspicion for acute decompensated HFpEF, based on exam, CXR findings-PVC but proBNP very unremarkable. pt received lasix 80mg iv in ED followed by 60mg iv, received Diamox 250mg bid on 10/08. Echo November 2015: EF 65-70, mildly calcified aortic valve, study was noted to be incomplete secondary to patient discomfort with positioning. Even with aggressive diuretics , pt symptoms very mildly improved, having exp wheezing, therefore tx for COPD exacerbation started 10/11. Repeat TTE showed grossly unchanged. -pt seemed to respond to lasix 80mg iv given -10/10, stopped due to LETICIA, clinically stable, mildly remained euvolemic -continue diuresis with Diamox 250mg bid 10/12- -telemetry -replete lytes as needed -O2 supplement target <95% -strict i/o, daily wt COPD, POA, likely COPD exacerbation as above, -chg duonebs q4h prn - increased prednisone 5 mg to 60mg daily 10/11, likely need prolonged taper given chronic steroid use, - started Advair 2puffs bid 10/11 - pt needs close FU with Dr.Parimi KELLY on CKD, due to diuretics, sCR baseline 1.10, -renal function mildly improving after holding lasix 10/10 -will monitor closely, avoid other renal toxins, adjust meds renally. -Lisinopril decreased from 40 to 20mg 10/09, stopped 10/11 minor Tinea pedis on Left foot, start Clotrimazole oint bid chronic nasal congesttion with PND, POA, start NS nasal spray bid, added Flonase Non-insulin using diabetes mellitus, A1c 05/2016: 10.8, -glc uncontrolled with increased steroid dose, 192 today, better - Home meds: Metformin 1 g twice daily, Holding metformin at this time; -ciontinue high dose correctional scale lispro -lantus 5unit daily to 15unit daily chronic, stable Leukocytosis, chronicity unknown, present on admission, under evaluation - On admit: WBC 13.9; previous 05/22/2016 13.7 when on steroid therapy - Likely secondary to chronic steroid use - Continue to monitor for signs of infection Gout, chronic, presumed stable - Resume allopurinol 100 mg daily Coronary artery disease status post myocardial infarction, chronic, presumed stable - EKG on admission did not show any ischemic changes - Continue daily aspirin Normocytic, normochromic anemia, chronicity unknown, present on admission, presumed stable - On admit: Hb 10.6, Hct 34.6, MCV 93.8, MCH 28.7 - Continue to monitor; defer any additional workup to the outpatient setting Restless legs, chronic, presumed stable - May be secondary to underlying anemia - Continue home magnesium therapy Reported chronic sinus infection, status unknown, present on admission, presumed stable - Pt reports long standing h/o sinus infection, not currently on tx - Likely defer further workup to outpatient setting - Consider CT sinus if sx worsen Goals of care, ongoing - Patient discussed that during this hospitalization she would like to complete a POLST form - LOREN comm request placed to provide form to patient to review -complete signatures prior to discharge PRN: Bowel, fever, pain, nausea DVT: Hep q8 GI: PPI, home dose Diet: Heart/carb Code: DNR/DNI Patient status: likely tomorrow if pt remains stable GI Prophylaxis: Proton Pump Inhibitor VTE Prophylaxis: Sub-Q Heparin (Unfractionated) VTE Mechanical Devices: Intermittant Pneumatic CD Resuscitation Status: DNR/DNI:Do Not Resuscitate/Intubate Time spent 35min Valentine Sharpe MD Oct 13, 2016 09:00
--- NOTE | 2016-10-13 14:21 | NUR ---
O2 Needs/Fluid overload/SOB On AM assessment, pt on 2L O2, Reports being on 2-3L O2 at home. Tolerating current O2 Level at rest, when getting up to bathroom pt gets SOB. Increased O2 to 3L via NC. Pt tolerating with SpO2 around 92%. Afternoon pt reporting not feeling well. Reports increased SOB and swelling. BP, HR, and Respirations increasing. Pt sitting in upright position to aid with comfort/breathing. informed, new orders for IV Lasix. Continuing to monitor.
[2016-10-13] MEDS ORDERED: Furosemide 10 mg/mL 4 mL Inj IVPUSH ONE (14:28)
--- NOTE | 2016-10-13 15:16 | NUR ---
Social Work-readiness for discharge: Data:EMR reviewed. Pt is on day 5 of hospitalization for exacerbation of CHF per H&P. Pt is not medically stable anticipate 1-2 more days. Pt has home o2 and nebulizer at home. order received for HH services. SW followed up with pt at bedside, SW role explained. Pt is alert and oriented x3. Pt states she does not feel like she will need HH services at this time. Pt states her daughter is working on being her caregiver through the [facility] for home. SW to follow up with pt again prior to discharge regarding HH. SW will continue to follow. Assessment:Pt who is independent at baseline. Plan:Pt to discharge home when medically stable via POV. Pt currently declining HH services. SW will continue to follow. KARLEE Noguera
[2016-10-14] VITALS (9 sets, daily range): BP systolic 121–161; BP diastolic 60–86; PULSE 76–95; RESP 18–20; O2SAT 91–97
[2016-10-14] MEDS: Heparin 5,000 Unit/mL Inj SUBQ SCH ×3 (02:12→16:39)
[2016-10-14] MEDS: Pantoprazole 40 mg ER24 Tablet PO SCH (08:33)
[2016-10-14] MEDS: predniSONE 20 mg Tablet PO SCH (08:34)
[2016-10-14] MEDS: Fluticasone 0.05% 15 Spray/2 Gm 16 Gm Nasal Spray NASAL SCH ×2 (08:34→20:48)
[2016-10-14] MEDS: Insulin LISPRO 300 Unit/3 mL Inj SUBQ SCH ×4 (08:34→20:53)
[2016-10-14] MEDS: acetaZOLAMIDE 250 mg Tablet PO SCH (08:34)
[2016-10-14] MEDS: Fluticasone-Salmererol 250-50 Inhaler INHALATION SCH ×2 (08:34→20:48)
[2016-10-14] MEDS: Insulin GLARgine 100 Unit/mL Syringe SUBQ SCH (08:36)
[2016-10-14] MEDS: CLOTRIMAZOLE 1% TOPICAL SCH ×2 (08:37→20:30)
[2016-10-14] MEDS ORDERED: Furosemide 10 mg/mL 4 mL Inj IVPUSH ONE (10:43)
--- NOTE | 2016-10-14 12:54 | PCM.PNMED ---
Subjective Date of Service Oct 14, 2016 Subjective Patient takes breathing is better, Has significant net negative balance 2liters yesterday. pt received 80mg iv lasix one dose PT ordered to assess mobility Exam Vital Signs Vital Sign - Last Date Time Temp Pulse Resp B/P Pulse Ox O2 Delivery O2 Flow Rate FiO2 10/14/16 11:24 76 10/14/16 09:34 36.6 20 121/60 91 Nasal Cannula 3.00 Intake and Output 10/13/16 10/13/16 10/14/16 Cumulative From/Thru 15:00 23:00 07:00 10/07/16 19:59 - 10/14/16 05:20 Intake Total 893 ml 100 ml 7989 ml Output Total 2350 ml 550 ml 74980 ml Balance -1457 ml -450 ml -4486 ml Intake Oral 893 ml 100 ml 7577 ml IV Total 412 ml Output Urine Total 2350 ml 550 ml 00429 ml # Bowel Movements 1 Exam NAD, comfortably laying down on the chair mild JVD, MMM, no LAD RRR, nl s1, s2 no mrg bibasilar crackles, no wheezing S,ND,NT,normoactive BS+ warm, 1+ pitting edema up to 1/3 hunter distal, symmetric, nontender. scaly demarcated erythematous skin lesion on Left foot - unchanged IVs and Medications Medications Reviewed: Medications were reviewed in detail Lab and Diagnostics Result Diagram: 10/13/16 0610 10/14/16 0723 Assessment & Plan Ms. Pettit is a pleasant 71-year-old female with a history of COPD, chronic hypoxemic respiratory failure, obstructive sleep apnea, non-insulin using diabetes, and preserved ejection fraction heart failure, presented to the emergency department with a progressively worsening shortness of breath with exertion and intermittent nonproductive cough,, without any associated fever, or chills. She was admitted for evaluation and treatment of suspected exacerbation of preserved ejection fraction heart failure. acute, active Acute on chronic hypoxemic hypercarbic respiratory failure, POA, likely multifactorial: initially more suspicion for acute decompensated HFpEF, based on exam, CXR findings-PVC but proBNP very unremarkable. pt received lasix 80mg iv in ED followed by 60mg iv, received Diamox 250mg bid on 10/08. Echo November 2015: EF 65-70, mildly calcified aortic valve. Even with aggressive diuretics, pt symptoms very mildly improved, having exp wheezing, therefore tx for COPD exacerbation started 10/11. Repeat TTE showed grossly unchanged. -pt seemed to respond to lasix 80mg iv given -10/10, stopped due to LETICIA, then restarted 10/13- dosing on daily basis, use 60 to 80mg iv -continue diuresis with Diamox 250mg bid 10/12- -telemetry -replete lytes as needed -O2 supplement target <95% -strict i/o, daily wt COPD, POA, likely COPD exacerbation as above, -chg duonebs q4h prn - increased prednisone 5 mg to 60mg daily 10/11-, likely need prolonged taper given chronic steroid use, - started Advair 2puffs bid 10/11 - pt needs close FU with LETICIA on CKD, due to diuretics, sCR baseline 1.10, -renal stable, but still worse than baseline, -will monitor closely, avoid other renal toxins, adjust meds renally. -Lisinopril decreased from 40 to 20mg 10/09, stopped 10/11 minor Tinea pedis on Left foot, start Clotrimazole oint bid chronic nasal congesttion with PND, POA, start NS nasal spray bid, added Flonase Non-insulin using diabetes mellitus, A1c 05/2016: 10.8, -glc uncontrolled with increased steroid dose, 192 today, better -Home meds: Metformin 1 g twice daily, Holding metformin at this time; -ciontinue high dose correctional scale lispro -lantus 5unit daily to 15unit daily chronic, stable Leukocytosis, chronicity unknown, present on admission, under evaluation - On admit: WBC 13.9; previous 05/22/2016 13.7 when on steroid therapy - Likely secondary to chronic steroid use - Continue to monitor for signs of infection Gout, chronic, presumed stable - Resume allopurinol 100 mg daily Coronary artery disease status post myocardial infarction, chronic, presumed stable - EKG on admission did not show any ischemic changes - Continue daily aspirin Normocytic, normochromic anemia, chronicity unknown, present on admission, presumed stable - On admit: Hb 10.6, Hct 34.6, MCV 93.8, MCH 28.7 - Continue to monitor; defer any additional workup to the outpatient setting Restless legs, chronic, presumed stable - May be secondary to underlying anemia - Continue home magnesium therapy Reported chronic sinus infection, status unknown, present on admission, presumed stable - Pt reports long standing h/o sinus infection, not currently on tx - Likely defer further workup to outpatient setting - Consider CT sinus if sx worsen Goals of care, ongoing - Patient discussed that during this hospitalization she would like to complete a POLST form - LOREN comm request placed to provide form to patient to review -complete signatures prior to discharge PRN: Bowel, fever, pain, nausea DVT: Hep q8 GI: PPI, home dose Diet: Heart/carb Code: DNR/DNI Patient status: Overall stable, pt is still volume up, trend i/o, wt, diuresis 1 -2 more days and tx for COPD. GI Prophylaxis: Proton Pump Inhibitor VTE Prophylaxis: Sub-Q Heparin (Unfractionated) VTE Mechanical Devices: Intermittant Pneumatic CD Resuscitation Status: DNR/DNI:Do Not Resuscitate/Intubate Time spent 35min Valentine Sharpe MD Oct 14, 2016 12:54
--- NOTE | 2016-10-14 19:26 | NUR ---
Fluid overload Pt reports feeling fluid overloaded, crackles in bases, hollow sounding abdomen when tapped and swelling on R side of neck. Pt reports having those symptoms when being overloaded. Pt takes Lasix at home, but placed on Diamox while here. Reports shes is not going as much as when she is at home. informed. New orders for IV lasix. Post administration, pt symptoms reduced, reports better breathing and swelling reduced as well. Neb tx and NC O2 of 3L administered.
[2016-10-14] MEDS: Albuterol-Ipratropium 3 mL Inhalation Solution NEB PRN (20:46)
[2016-10-15] VITALS (11 sets, daily range): BP systolic 97–131; BP diastolic 59–78; PULSE 81–95; RESP 18–20; O2SAT 91–95
[2016-10-15] MEDS: Heparin 5,000 Unit/mL Inj SUBQ SCH ×3 (00:06→17:19)
[2016-10-15 07:10] LABS: BASOPHILS % (AUTO) 0.3 % (0-3); MONOCYTES % (AUTO) 10.4 % (4-12); Mean Corpuscular Hemoglobin 28.6 pg (27.0-35.0); Mean Corpuscular Volume 93.1 fL (81-100); NEUTROPHILS % (AUTO) 70.3 % (40-74); Platelet Count 380 bil/L (150-400)
[2016-10-15 07:32] LABS: Magnesium 2.1 mg/dL (1.6-2.6)
[2016-10-15] MEDS: Fluticasone 0.05% 15 Spray/2 Gm 16 Gm Nasal Spray NASAL SCH ×2 (08:00→21:03)
[2016-10-15] MEDS: Fluticasone-Salmererol 250-50 Inhaler INHALATION SCH ×2 (08:00→21:03)
[2016-10-15] MEDS: Pantoprazole 40 mg ER24 Tablet PO SCH (08:00)
[2016-10-15] MEDS: predniSONE 20 mg Tablet PO SCH (08:01)
[2016-10-15] MEDS: Insulin GLARgine 100 Unit/mL Syringe SUBQ SCH (08:04)
[2016-10-15] MEDS: Insulin LISPRO 300 Unit/3 mL Inj SUBQ SCH ×4 (08:04→21:15)
[2016-10-15] MEDS: CLOTRIMAZOLE 1% TOPICAL SCH ×2 (08:13→21:03)
[2016-10-15] MEDS: Albuterol-Ipratropium 3 mL Inhalation Solution NEB PRN ×3 (09:11→17:49)
[2016-10-15] MEDS: Furosemide 10 mg/mL 10 mL Inj IVPUSH SCH ×2 (10:40→17:18)
--- NOTE | 2016-10-15 11:15 | PCM.PNMED ---
Subjective Date of Service Oct 15, 2016 Subjective pt still had some SOB yesterday. planned for walking with PT on O2 i/o -450 and -200/12hr, with lasix 60mg today, although pt had good response to 60mg after dosing Exam Vital Signs Vital Sign - Last Date Time Temp Pulse Resp B/P Pulse Ox O2 Delivery O2 Flow Rate FiO2 10/15/16 10:31 85 10/15/16 09:03 36.4 18 121/71 91 Nasal Cannula 3.00 Intake and Output 10/14/16 10/14/16 10/15/16 Cumulative From/Thru 15:00 23:00 07:00 10/07/16 19:59 - 10/15/16 06:17 Intake Total 250 ml 8239 ml Output Total 450 ml 78122 ml Balance -200 ml -4686 ml Intake Oral 250 ml 7827 ml IV Total 412 ml Output Urine Total 450 ml 35166 ml # Bowel Movements 1 Exam NAD, comfortably laying down on the chair mild JVD, MMM, no LAD RRR, nl s1, s2 no mrg bibasilar crackles, no wheezing S,ND,NT,normoactive BS+ warm, 1+ pitting edema up to 1/3 hunter distal, symmetric, nontender. scaly demarcated erythematous skin lesion on Left foot - unchanged IVs and Medications Medications Reviewed: Medications were reviewed in detail Lab and Diagnostics Result Diagram: 10/15/1635 10/15/1635 Assessment & Plan Ms. Pettit is a pleasant 71-year-old female with a history of COPD, chronic hypoxemic respiratory failure, obstructive sleep apnea, non-insulin using diabetes, and preserved ejection fraction heart failure, presented to the emergency department with a progressively worsening shortness of breath with exertion and intermittent nonproductive cough,, without any associated fever, or chills. She was admitted for evaluation and treatment of suspected exacerbation of preserved ejection fraction heart failure. acute, active Acute on chronic hypoxemic hypercarbic respiratory failure, POA, likely multifactorial: initially more suspicion for acute decompensated HFpEF, based on exam, CXR findings-PVC but proBNP very unremarkable. pt received lasix 80mg iv in ED followed by 60mg iv, received Diamox 250mg bid on 10/08. Echo November 2015: EF 65-70, mildly calcified aortic valve. Even with aggressive diuretics, pt symptoms very mildly improved, having exp wheezing, therefore tx for COPD exacerbation started 10/11. Repeat TTE showed grossly unchanged. -pt seemed to respond to lasix 80mg iv given -10/10, stopped due to LETICIA, then restarted 10/13- dosing on daily basis, use 60 to 80mg iv, will try bid today. -continue diuresis with Diamox 250mg bid 10/12-10/14, consider adding metolazone for further diuresis -telemetry -replete lytes as needed -O2 supplement target <95% -strict i/o, daily wt COPD, POA, likely COPD exacerbation as above, -chg duonebs q4h prn - increased prednisone 5 mg to 60mg daily 10/11-, likely need prolonged taper given chronic steroid use, - started Advair 2puffs bid 10/11 - pt needs close FU with Dr.Parimi KELLY on CKD, due to diuretics, sCR baseline 1.10, -renal stable, but still worse than baseline, -will monitor closely, avoid other renal toxins, adjust meds renally. -Lisinopril decreased from 40 to 20mg 10/09, stopped 10/11 minor Tinea pedis on Left foot, start Clotrimazole oint bid chronic nasal congesttion with PND, POA, start NS nasal spray bid, added Flonase Non-insulin using diabetes mellitus, A1c 05/2016: 10.8, -glc uncontrolled with increased steroid dose, 192 today, better -Home meds: Metformin 1 g twice daily, Holding metformin at this time; -ciontinue high dose correctional scale lispro -lantus 5unit daily to 15unit daily chronic, stable Leukocytosis, chronicity unknown, present on admission, under evaluation - On admit: WBC 13.9; previous 05/22/2016 13.7 when on steroid therapy - Likely secondary to chronic steroid use - Continue to monitor for signs of infection Gout, chronic, presumed stable - Resume allopurinol 100 mg daily Coronary artery disease status post myocardial infarction, chronic, presumed stable - EKG on admission did not show any ischemic changes - Continue daily aspirin Normocytic, normochromic anemia, chronicity unknown, present on admission, presumed stable - On admit: Hb 10.6, Hct 34.6, MCV 93.8, MCH 28.7 - Continue to monitor; defer any additional workup to the outpatient setting Restless legs, chronic, presumed stable - May be secondary to underlying anemia - Continue home magnesium therapy Reported chronic sinus infection, status unknown, present on admission, presumed stable - Pt reports long standing h/o sinus infection, not currently on tx - Likely defer further workup to outpatient setting - Consider CT sinus if sx worsen Goals of care, ongoing - Patient discussed that during this hospitalization she would like to complete a POLST form - LOREN comm request placed to provide form to patient to review -complete signatures prior to discharge PRN: Bowel, fever, pain, nausea DVT: Hep q8 GI: PPI, home dose Diet: Heart/carb Code: DNR/DNI Patient status: Overall stable, pt is still volume up, trend i/o, wt, diuresis 1 -2 more days and tx for COPD. GI Prophylaxis: Proton Pump Inhibitor VTE Prophylaxis: Sub-Q Heparin (Unfractionated) VTE Mechanical Devices: Intermittant Pneumatic CD Resuscitation Status: DNR/DNI:Do Not Resuscitate/Intubate Time spent 35min Valentine Sharpe MD Oct 15, 2016 11:15
--- NOTE | 2016-10-15 18:07 | NUR ---
HR and breathing Pt denies SOB this shift, spent entire shift in chair. Able to transfer [place] [facility] [place]. Up with PT today and able to walk with FWW. Around 180 alerted by tele monitor that pt HR was 150-170's and A fib. Pt asymptomatic, apical HR was 92 and irregular on auscultation. Pt had just received breathing treatment from RT. EKG ordered and paged with update. awaiting response Addendum: 10/15/16 at 1845 by Le Anderson RN replied, orders for metoprolol IV 5mg to be given, stat chemistry with Mg, and he will review EKG. Jayla HARDEN administered IV metoprolol, will continue to monitor.
[2016-10-15] MEDS ORDERED: MeTOProlol 1 mg/mL 5 mL Inj ONE (18:37)
[2016-10-15] MEDS ORDERED: MeTOProlol 1 mg/mL 5 mL Inj IVPUSH ONE (18:40)
[2016-10-15] MEDS: MeTOProlol 1 mg/mL 5 mL Inj IVPUSH PRN ×2 (18:58→19:22)
[2016-10-15 19:25] LABS: Magnesium 1.8 mg/dL (1.6-2.6)
--- NOTE | 2016-10-15 21:22 | NUR ---
Heart rate/BP Around 1800hrs the PT went into A-fib RVR 150-170s, PT flushed and complaining of a little SOB. Dr Dell uriarte and orders received for Metoprolol 5mg X3 PRN, BP at time of first dose 112/78. Minimal effect from all 3 doses, lowest BP 95/56,HR still 130-140s, Dr Estefany pruett she reviewed the PT and orders for Metoprolo 12.5mg PO received and given. One hour later HR still 120-140s BP 103/59 PT still a little SOB compared to earlier in the day. Dr Estefany pruett and orders received to transfer PT to [facility] room 2001, Report given to primary nurse Shawna Conteh.
[2016-10-15] MEDS ORDERED: Diltiazem 5 mg/mL 5 mL Inj IVPUSH ONE (22:10)
[2016-10-15] MEDS ORDERED: 0.9% Sodium Chloride 250 ML ONE (22:15)
[2016-10-15] MEDS: Diltiazem Inj 125 MG in Dextrose 5% 100 ML IV SCH (22:34)
--- NOTE | 2016-10-15 23:20 | NUR ---
Transfer Report Received report from Shawna Zhang RN from [facility], pt came to room in wheel chair, doesn't sleep in bed ever, will spend time in recliner , Placed on MP 30, Paged Dr with HR , Orders for Diltiazem Gtt , and 5 Mg bolus, started Diltiazem @ 5 Mg/hr , Hr 145. On 3 L O2 per NC, A&O x3 , using call light appropriately, BSC at her chairside, NS @ tko.
[2016-10-16] VITALS (16 sets, daily range): BP systolic 96–129; BP diastolic 55–80; PULSE 80–120; RESP 18–21; O2SAT 90–97
[2016-10-16] MEDS: Heparin 5,000 Unit/mL Inj SUBQ SCH ×3 (00:33→16:49)
[2016-10-16 02:51] LABS: Mean Corpuscular Hemoglobin 28.7 pg (27.0-35.0); Mean Corpuscular Volume 91.8 fL (81-100); Platelet Count 416 bil/L (150-400)
[2016-10-16 03:09] LABS: BASOPHILS % (AUTO) 0 % (0-3); EOSINOPHILS % (AUTO) 1 % (0-5); MONOCYTES % (AUTO) 5 % (4-12); NEUTROPHILS % (AUTO) 81 % (40-74)
[2016-10-16 03:19] LABS: Magnesium 2.1 mg/dL (1.6-2.6)
--- NOTE | 2016-10-16 07:33 | NUR ---
NUTRITION ASSESSMENT: ASSESS: 71 YO female admitted with CHF and COPD exacerbation. Despite aggressive diuresis, symptoms very mildly improved, having exp. wheezing; therefore tx for COPD exacerbation started 10/11. Repeat TTE results grossly unchanged. PMHx: Chronic hypoxemic, hypercarbic respiratory faiure, obesity hypoventilation syndrome, CAD, DM requiring CPAP, RLS, vitamin D deficiency, type II diabetes, depression, COPD, CHF, HTN, gout. DIET: Heart healthy consistent carb. PO intake 100% trays consistently. LABS: Reviewed. MEDICATIONS: Reviewed. Lasix, Prednisone, Insulin. NUTRITION FOCUSED PHYSICAL ASSESSMENT: GI symptoms / stool: BM x 1 (10/08).Alonzo: 20. Skin Integrity: No issues reported. ANTHROPOMETRICS: Current Wt: 107.7 kg BMI: 42.0 kg/m2. Admit weight: 100.45 kg IBW: 47.8 kg (210.1% IBW) ESTIMATED NEEDS (CLASS III OBESITY, COPD): Calories: 1195 - 1434 kcal (25 - 30 kcal / kg IBW) Protein 86 - 96 g protein (1.8 - 2.0 g / kg BW) NUTRITION DIAGNOSIS: 1) No diagnosis at this time. INTERVENTION: 1) No intervention at this time. MONITOR/EVALUATE: PO intake, labs, weight, nutritional status. Follow up per low nutrition risk guidelines.
[2016-10-16] MEDS: Albuterol-Ipratropium 3 mL Inhalation Solution NEB PRN ×3 (07:46→17:06)
[2016-10-16] MEDS: Furosemide 10 mg/mL 10 mL Inj IVPUSH SCH ×2 (08:49→16:49)
[2016-10-16] MEDS: Pantoprazole 40 mg ER24 Tablet PO SCH (08:49)
[2016-10-16] MEDS: Fluticasone-Salmererol 250-50 Inhaler INHALATION SCH ×2 (08:50→20:40)
[2016-10-16] MEDS: Fluticasone 0.05% 15 Spray/2 Gm 16 Gm Nasal Spray NASAL SCH ×2 (08:50→20:40)
[2016-10-16] MEDS: Insulin LISPRO 300 Unit/3 mL Inj SUBQ SCH ×4 (08:50→20:55)
[2016-10-16] MEDS: predniSONE 20 mg Tablet PO SCH (08:51)
[2016-10-16] MEDS: Insulin GLARgine 100 Unit/mL Syringe SUBQ SCH (08:52)
[2016-10-16] MEDS: CLOTRIMAZOLE 1% TOPICAL SCH ×2 (08:53→20:41)
[2016-10-16] MEDS: Diltiazem Inj 125 MG in Dextrose 5% 100 ML IV SCH (10:45)
--- NOTE | 2016-10-16 14:48 | NUR ---
Social Work: Readiness for Discharge/Multidisciplinary Rounds D: Pt discussed in multidisciplinary rounds; the patient was transferred to PCC overnight for rate control. WORKFORCE DEVELOPMENT ASSISTANT met with the patient at bedside to introduce self and provide contact information on patient's white board. Pt is appreciative of WORKFORCE DEVELOPMENT ASSISTANT visit and states that she lives at home iwth her daughter. She uses home 02 through and states that she wants to go home and continues to decline HH. She is aware that WORKFORCE DEVELOPMENT ASSISTANT will continue to follow and will check in with her throughout her stay to confirm her discharge needs. She is appreciative of the visit. A: Pt who is I at baseline and declining HH services. P: Anticipate pt to discharge home via POV once medically stable; WORKFORCE DEVELOPMENT ASSISTANT to continue to follow to assess for unmet needs. KARLEE Tony
--- NOTE | 2016-10-16 15:30 | NUR ---
Hypotension Pt had a BP of 88/56, repeat BP was 98/56 HR in the low 100's. Turned down the Cardizem drip to 7.5mls/hr. When checking in on pt her HR remained the same but BP came up to 105/64. MD rivas.
--- NOTE | 2016-10-16 20:38 | PCM.PNMED ---
Subjective Date of Service Oct 16, 2016 Subjective Subjective: Patient sitting up in chair, she states she is feeling much better today and is excited to get out of the hospital. Events Overnight: No acute events overnight. ROS: Short of breath Denies fever/chills, nausea/vomiting, headache, weakness, abdominal pain, chest pain, increased swelling in hands or feet. Exam Vital Signs Vital Sign - Last Date Time Temp Pulse Resp B/P Pulse Ox O2 Delivery O2 Flow Rate FiO2 10/16/16 19:31 115 10/16/16 19:26 36.6 18 109/63 92 Nasal Cannula 3.50 Intake and Output 10/15/16 10/15/16 10/16/16 Cumulative From/Thru 15:00 23:00 07:00 10/07/16 19:59 - 10/16/16 06:28 Intake Total 513 ml 8752 ml Output Total 300 ml 38048 ml Balance 213 ml -4473 ml Intake Oral 400 ml 8227 ml IV Total 113 ml 525 ml Output Urine Total 300 ml 63607 ml # Bowel Movements 1 Exam General: No acute distress, well-developed, obese Head: Normocephalic, atraumatic. External ears without defect. Eyes: Pupils equal, round, and reactive to light and accommodation. Anicteric sclerae, moist conjunctivae. Neck: Normal range of motion, no lymphadenopathy noted Cardiovascular: Regular rate and rhythm mild systolic murmur, rubs, or gallops appreciated Pulmonary: Distant lung sounds with minor rales wheezes and rhonchi auscultated especially in the lower lung castellanos. Normal respiratory effort with no use of accessory muscles. Abdomen: Bowel tones present. Soft, nontender, nondistended. Extremities: No clubbing, cyanosis, edema Skin: Normal temperature, turgor, and texture; no rash, ulcers, or subcutaneous nodules appreciated. Neurological: Cranial nerves grossly intact. Reflexes, coordination, and sensory function within normal limits. Normal muscle strength, tone, and bulk. Psychiatric: Normal mood and affect. Alert and oriented to person, place, and time IVs and Medications IV Fluids 280 mL normal saline delivered with IV medications. Medications Reviewed: Medications were reviewed in detail Lab and Diagnostics Result Diagram: 10/16/1620910/16/16209 Assessment & Plan Ms. Pettit is a pleasant 71-year-old female with a history of COPD, chronic hypoxemic respiratory failure, obstructive sleep apnea, non-insulin using diabetes, and preserved ejection fraction heart failure, presented to the emergency department with a progressively worsening shortness of breath with exertion and intermittent nonproductive cough,, without any associated fever, or chills. She was admitted for evaluation and treatment of suspected exacerbation of preserved ejection fraction heart failure. New onset atrial fibrillation, not present on arrival, active This likely represents paroxysmal atrial fibrillation. Risk factors in this case include hypertension and sleep apnea. - Patient started on diltiazem drip subsequently converted to oral dosing. Patient remains in A. fib despite this measure - Start long-acting diltiazem on 10/16 - CHADSVASC score 6 - 10% chance per year - Recommend starting anticoagulation - Continue to monitor Acute on chronic hypoxemic hypercarbic respiratory failure, POA, Likely multifactorial: initially more suspicion for acute decompensated HFpEF, based on exam, CXR findings-PVC but proBNP very unremarkable. Echo November 2015: EF 65-70, mildly calcified aortic valve. - Even with aggressive diuretics, symptoms very mildly improved, having exp wheezing, therefore tx for COPD exacerbation started 10/11. P - Repeat TTE showed grossly unchanged. - Lasix discontinued due LETICIA -Continue telemetry -O2 supplement target <95% -strict i/o, daily wt COPD, POA, likely COPD exacerbation as above, -chg duonebs q4h prn - Continue prednisone 60mg daily - Advair 2puffs bid 10/11 - pt needs close FU with LETICIA on CKD, due to diuretics, sCR baseline 1.10, -renal stable, but still worse than baseline, -will monitor closely, avoid other renal toxins, adjust meds renally. -Lisinopril decreased from 40 to 20mg 10/09, stopped 10/11 minor Tinea pedis on Left foot, start Clotrimazole oint bid chronic nasal congesttion with PND, POA, start NS nasal spray bid, added Flonase Non-insulin using diabetes mellitus, A1c 05/2016: 10.8, -Glucose uncontrolled with increased steroid dose -Home meds: Metformin 1 g twice daily, Holding metformin at this time; -Continue high dose correctional scale lispro, will add additional 5 units per meal -lantus 5unit daily to 15unit daily Leukocytosis, chronicity unknown, present on admission, - On admit: WBC 13.9; previous 05/22/2016 13.7 when on steroid therapy - Likely secondary to chronic steroid use - Continue to monitor for signs of infection Gout, chronic, presumed stable - Resume allopurinol 100 mg daily Coronary artery disease status post myocardial infarction, chronic, presumed stable - EKG on admission did not show any ischemic changes - Continue daily aspirin Normocytic, normochromic anemia, chronicity unknown, present on admission, presumed stable - On admit: Hb 10.6, Hct 34.6, MCV 93.8, MCH 28.7 - Continue to monitor; defer any additional workup to the outpatient setting Restless legs, chronic, presumed stable - May be secondary to underlying anemia - Continue home magnesium therapy Reported chronic sinus infection, status unknown, present on admission, presumed stable - Pt reports long standing h/o sinus infection, not currently on tx - Likely defer further workup to outpatient setting - Consider CT sinus if sx worsen Goals of care, ongoing - Patient discussed that during this hospitalization she would like to complete a POLST form - LOREN comm request placed to provide form to patient to review -complete signatures prior to discharge PRN: Bowel, fever, pain, nausea DVT: Hep q8 GI: PPI, home dose Diet: Heart/carb Code: DNR/DNI Disposition: Patient will likely require 1-2 more nights of inpatient management prior to discharge home. GI Prophylaxis: Proton Pump Inhibitor VTE Prophylaxis: Sub-Q Heparin (Unfractionated) VTE Mechanical Devices: Intermittant Pneumatic CD Resuscitation Status: DNR/DNI:Do Not Resuscitate/Intubate Attending Statement The patient was seen and examined together with Dr. Villarreal on 10/16/2016 and I agree with the history, exam and plan as outlined in the note above. . Lamonte Villarreal DO Oct 16, 2016 20:38 Eddie Mensah MD Oct 17, 2016 16:10
[2016-10-17] VITALS (11 sets, daily range): BP systolic 102–122; BP diastolic 58–71; PULSE 55–140; RESP 18–24; O2SAT 91–97
[2016-10-17] MEDS: Heparin 5,000 Unit/mL Inj SUBQ SCH ×2 (00:32→09:16)
[2016-10-17] MEDS: Insulin LISPRO 300 Unit/3 mL Inj SUBQ SCH ×2 (03:40→08:56)
--- NOTE | 2016-10-17 05:18 | NUR ---
Hyperglycemia: P: Blood sugar of 413 last night. Pt given 10 units of SQ Lispro. Pt's blood sugar checked early this am as per protocol. Blood sugar remained elevated at 297. I: Dr. More notified. Orders obtained to give bedtime sliding scale of SQ Lispro. 5 units of Lispro administered. E: Continued evaluation of insulin requirements needed with pt on prednisone.
--- NOTE | 2016-10-17 05:23 | NUR ---
HR: Pt started on PO Diltiazem 10/16. HR noted to drop as low as the 70s when pt sleeping. However, HR noted primarily in the 80s to 120s. The pt's HR was noted to escalate up to the 140s to 160s with activity up to the BSC. Pt stable throughout the night.
[2016-10-17 08:04] LABS: Mean Corpuscular Hemoglobin 28.8 pg (27.0-35.0); Mean Corpuscular Volume 91.4 fL (81-100)
[2016-10-17] MEDS: predniSONE 20 mg Tablet PO SCH (09:15)
[2016-10-17] MEDS: Pantoprazole 40 mg ER24 Tablet PO SCH (09:16)
[2016-10-17] MEDS: Fluticasone 0.05% 15 Spray/2 Gm 16 Gm Nasal Spray NASAL SCH ×2 (09:16→20:34)
[2016-10-17] MEDS: Insulin GLARgine 100 Unit/mL Syringe SUBQ SCH (09:16)
[2016-10-17] MEDS: Fluticasone-Salmererol 250-50 Inhaler INHALATION SCH ×2 (09:16→20:34)
[2016-10-17] MEDS: CLOTRIMAZOLE 1% TOPICAL SCH ×2 (09:17→20:34)
[2016-10-17] MEDS: Diltiazem CD 120 mg ER24 Capsule PO SCH ×2 (10:54→20:33)
[2016-10-17] MEDS ORDERED: Insulin GLARgine 100 Unit/mL Syringe SUBQ ONE (11:05)
[2016-10-17 14:12] LABS: INR 0.89 ratio
--- NOTE | 2016-10-17 15:08 | PCM.PHAPRO ---
Progress Date of Service: Oct 17, 2016 Shortness of breath with exertion Warfarin Management per Pharmacy: Indication: Stroke prophylaxis as patient has atrial fibrillation ([id number]- Vasc = 6) Goal INR: 2-3 Home Dose: This is a new start Labs: Hgb/Hct: 12.0/38.1 Plt: 475 INR: 0.89 Drug Interactions: Prednisone 40 mg daily Additional anticoagulants: Lovenox therapeutic dosing Bleeding Risk: On low dose aspirin 81 mg daily Recommendation: Warfarin 5 mg PO x 1 today at 1700 INR ordered daily x 7 days w/ AM labs Pharmacy to continue to monitor and adjust dose daily as needed. Thank You, Alley Black, Pharm D. Alley Black Oct 17, 2016 15:08
--- NOTE | 2016-10-17 15:19 | PCM.PNMED ---
Subjective Date of Service Oct 17, 2016 Subjective Subjective: Patient continues to feel better day by day, we discussed her difficult situation and being unable to leave the house for long periods of time. We discussed the possibility of having [facility] health come and assist her with her medications, we also discussed methods for at-home treatment of insulin due to the fact that she is currently unable to dose herself based on her poor eyesight and shaky hands. We also discussed possibilities for blood blood thinning medications. Events Overnight: No acute events overnight. ROS: Denies fever/chills, nausea/vomiting, headache, weakness, abdominal pain, chest pain, shortness of breath, increased swelling in hands or feet. Exam Vital Signs Vital Sign - Last Date Time Temp Pulse Resp B/P Pulse Ox O2 Delivery O2 Flow Rate FiO2 10/17/16 12:11 36.6 69 18 102/67 91 Nasal Cannula 3.50 Intake and Output 10/16/16 10/16/16 10/17/16 Cumulative From/Thru 15:00 23:00 07:00 10/07/16 19:59 - 10/17/16 06:34 Intake Total 1067 ml 550 ml 51702 ml Output Total 1300 ml 1000 ml 79581 ml Balance -233 ml -450 ml -5156 ml Intake Oral 900 ml 550 ml 9677 ml IV Total 167 ml 692 ml Output Urine Total 1300 ml 1000 ml 29302 ml # Bowel Movements 1 Exam General: No acute distress, well-developed, obese Head: Normocephalic, atraumatic. External ears without defect. Eyes: Pupils equal, round, and reactive to light and accommodation. Anicteric sclerae, moist conjunctivae. Neck: Normal range of motion, no lymphadenopathy noted Cardiovascular: Regular rate and rhythm mild systolic murmur, rubs, or gallops appreciated Pulmonary: Distant lung sounds with minor rales wheezes and rhonchi auscultated especially in the lower lung castellanos. Normal respiratory effort with no use of accessory muscles. Abdomen: Bowel tones present. Soft, nontender, nondistended. Extremities: No clubbing, cyanosis, edema Skin: Normal temperature, turgor, and texture; no rash, ulcers, or subcutaneous nodules appreciated. Neurological: Cranial nerves grossly intact. Reflexes, coordination, and sensory function within normal limits. Normal muscle strength, tone, and bulk. Psychiatric: Normal mood and affect. Alert and oriented to person, place, and time IVs and Medications Medications Reviewed: Medications were reviewed in detail Medications High risk medications include: Lovenox Warfarin Lab and Diagnostics Result Diagram: 10/17/16 0745 10/17/16 0745 Assessment & Plan Ms. Pettit is a pleasant 71-year-old female with a history of COPD, chronic hypoxemic respiratory failure, obstructive sleep apnea, non-insulin using diabetes, and preserved ejection fraction heart failure, presented to the emergency department with a progressively worsening shortness of breath with exertion and intermittent nonproductive cough,, without any associated fever, or chills. She was admitted for evaluation and treatment of suspected exacerbation of preserved ejection fraction heart failure. Due to the patient's decreased mobility and inability to attend multiple clinic visits, upon discharge home the patient will require follow-up from home health for nursing care as well as follow-up on INR levels. This should be coordinated in conjunction with the INR clinic. I would expect that the patient should be seen every 2-3 days for INR check for the first several weeks to ensure levels are appropriate. We would also like home health nursing to assist the patient in evaluating blood sugar levels especially due to her long taper off of prednisone as this will make it very difficult to control. In addition, home health physical therapy would be of use to this patient especially due to her long stay in the hospital. New onset atrial fibrillation, not present on arrival, active This likely represents paroxysmal atrial fibrillation. Risk factors in this case include hypertension and sleep apnea. - Patient started on diltiazem drip subsequently converted to oral dosing. Patient remains in A. fib despite this measure - Started long-acting diltiazem - CHADSVASC score 6 - 10% chance per year of thrombotic event - Starting patient on warfarin - Bridging with Lovenox for 5 days - Continue to monitor Acute on chronic hypoxemic hypercarbic respiratory failure, POA, Likely multifactorial: initially more suspicion for acute decompensated HFpEF, however COPD exacerbation cannot be excluded Echo November 2015: EF 65-70, mildly calcified aortic valve. - Repeat TTE showed grossly unchanged. - Lasix discontinued due LETICIA - Continue telemetry - O2 supplement target <95% - Strict i/o, daily wt - Continue prednisone at 40 mg COPD, POA, likely COPD exacerbation as above, -chg duonebs q4h prn - Continue prednisone 40mg daily - Advair 2puffs bid 10/11 - pt needs close FU with LETICIA on CKD, due to diuretics, sCR baseline 1.10, -renal stable, but still worse than baseline, -will monitor closely, avoid other renal toxins, adjust meds renally. -Lisinopril decreased from 40 to 20mg 10/09, stopped 10/11 minor Tinea pedis on Left foot, Start Clotrimazole oint bid chronic nasal congesttion with PND, POA, start NS nasal spray bid, added Flonase Non-insulin using diabetes mellitus, A1c 05/2016: 10.8, -Glucose uncontrolled with increased steroid dose -Home meds: Metformin 1 g twice daily, Holding metformin at this time; - Discontinue correctional scale insulin due to the fact that patient cannot continue this schedule at home. - Start Lantus 18 units twice a day Leukocytosis, chronicity unknown, present on admission, - On admit: WBC 13.9; previous 05/22/2016 13.7 when on steroid therapy - Likely secondary to chronic steroid use - Continue to monitor for signs of infection Gout, chronic, presumed stable - Resume allopurinol 100 mg daily Coronary artery disease status post myocardial infarction, chronic, presumed stable - EKG on admission did not show any ischemic changes - Continue daily aspirin Normocytic, normochromic anemia, chronicity unknown, present on admission, presumed stable - On admit: Hb 10.6, Hct 34.6, MCV 93.8, MCH 28.7 - Continue to monitor; defer any additional workup to the outpatient setting Restless legs, chronic, presumed stable - May be secondary to underlying anemia - Continue home magnesium therapy Reported chronic sinus infection, status unknown, present on admission, presumed stable - Pt reports long standing h/o sinus infection, not currently on tx - Likely defer further workup to outpatient setting - Consider CT sinus if sx worsen Goals of care, ongoing - Patient discussed that during this hospitalization she would like to complete a POLST form - LOREN comm request placed to provide form to patient to review -complete signatures prior to discharge PRN: Bowel, fever, pain, nausea DVT: Hep q8 GI: PPI, home dose Diet: Heart/carb Code: DNR/DNI Disposition: Patient will likely require 1-2 more nights of inpatient management prior to discharge home. Pain Evaluation: Adequate Pain Control GI Prophylaxis: Proton Pump Inhibitor VTE Prophylaxis: Sub-Q Heparin (Unfractionated) VTE Mechanical Devices: Intermittant Pneumatic CD Resuscitation Status: DNR/DNI:Do Not Resuscitate/Intubate Attending Statement The patient was seen and examined together with Dr. Villarreal on 10/17/2016 and I agree with the history, exam and plan as outlined in the note above. . Lamonte Villarreal DO Oct 17, 2016 15:19 Eddie Mensah MD Oct 17, 2016 16:10
[2016-10-17] MEDS: Albuterol-Ipratropium 3 mL Inhalation Solution NEB PRN ×2 (15:57→20:48)
--- NOTE | 2016-10-17 17:01 | NUR ---
Social Work Note: Continued Discharge Planning Data& Assessment: Pt was discussed in multidisciplinary rounds, per MD pt could benefit from pre filled insulin syringes due to difficulties with eye sight. Per MD request, DIRECTOR OF PHYSICAL THERAPY called [facility], [facility] [facility], [facility], [facility] [employer], [facility] and [facility] to inquire about pre filled syringes. All of the pharmacies and agencies explained that they do not have or supply pre-filled syringes. All of the pharmacies did state they have Insulin Pens, notified. Per MD, decided to transition pt to a different diabetes management medication. explained pt would need Warfrin dosing and I&R checks with Home Health as well as PT. Home Health Order remains in place. DIRECTOR OF PHYSICAL THERAPY met with pt at bedside to discuss discharge planning,Home Health list provided. Pt explained that she has had [facility] in the past and would like this services again. DIRECTOR OF PHYSICAL THERAPY spoke with Martine from [facility] and provided referral and access. Pt denies any other needs. No other MD orders at this time. DIRECTOR OF PHYSICAL THERAPY to continue to follow. Plan: Anticipated discharge home with her daughter and [facility] RN for Warfrin and I&R Checks, blood sugar checks and PT for strengthening. Pt denies any other needs. No other MD orders at this time. DIRECTOR OF PHYSICAL THERAPY to continue to follow. KARLEE Pendleton
--- NOTE | 2016-10-17 17:32 | NUR ---
Blood sugar Pt's blood glucose were 220, 305, and 484 before meals. No meal time coverage was scheduled for lunch or dinner. Pt was given 15 units of lantus in the AM. Doctor was notified about elevated blood sugar. Order given to given patient 10units of regular insulin and will recheck blood sugar before bed.
[2016-10-17] MEDS ORDERED: (U-500) Insulin Regluar, Human 500 Unit/mL Syringe SUBQ ONE (17:35)
[2016-10-17] MEDS ORDERED: Insulin Human REGular 300 Unit/3 mL Inj SUBQ SCH (17:45)
[2016-10-17] MEDS ORDERED: Insulin Human REGular-Omnicell 100 Unit/mL SUBQ ONE (17:52)
[2016-10-17] MEDS ORDERED: Insulin GLARgine 100 Unit/mL Syringe SUBQ SCH (20:30)
[2016-10-17] MEDS ORDERED: Insulin LISPRO 300 Unit/3 mL Inj SUBQ ONE (22:55)
[2016-10-18] VITALS (12 sets, daily range): BP systolic 102–137; BP diastolic 68–85; PULSE 67–124; RESP 18–22; O2SAT 90–94
[2016-10-18 02:41] LABS: Mean Corpuscular Volume 89.6 fL (81-100)
--- NOTE | 2016-10-18 02:52 | NUR ---
Telemetry: Telemetry A-Fib, HR: 110's-140's at start of shift. Scheduled PO cardizem administered. Pt.'s HR remained 130's for a few hours after Cardizem administration, HR slowly began to decrease. HR now 90's-100. Pt. resting in ashley-chair in room, per pt. request. Pt. refuses bed.
[2016-10-18 03:06] LABS: INR 0.92 ratio
--- NOTE | 2016-10-18 03:06 | NUR ---
Blood Glucose: Blood glucose: 458 at HS, scheduled Lantus administered. Physician notified regarding blood glucose. Orders received to administer 10 units Lispro insulin once. Blood glucose checked just before Lispro administration, indicating blood glucose of 396. At 0300, blood glucose re-assessed, blood glucose now 273.
[2016-10-18] MEDS: Albuterol-Ipratropium 3 mL Inhalation Solution NEB PRN ×3 (08:28→16:50)
[2016-10-18] MEDS ORDERED: Insulin GLARgine 100 Unit/mL Syringe SUBQ SCH ×2 (08:30)
[2016-10-18] MEDS: Diltiazem CD 180 mg ER24 Capsule PO SCH ×2 (08:47→20:24)
[2016-10-18] MEDS: Fluticasone-Salmererol 250-50 Inhaler INHALATION SCH ×2 (08:47→20:24)
[2016-10-18] MEDS: Fluticasone 0.05% 15 Spray/2 Gm 16 Gm Nasal Spray NASAL SCH ×2 (08:47→20:24)
[2016-10-18] MEDS: Pantoprazole 40 mg ER24 Tablet PO SCH (08:47)
[2016-10-18] MEDS: predniSONE 20 mg Tablet PO SCH (08:48)
[2016-10-18] MEDS: CLOTRIMAZOLE 1% TOPICAL SCH ×2 (08:50→20:24)
--- NOTE | 2016-10-18 11:24 | PCM.PNMED ---
Subjective Date of Service Oct 18, 2016 Subjective Subjective: Patient states she is feeling better today, she is concerned about her glucose levels being under control, we discussed the probability of keeping her here until her levels normalize. Patient states that she feels weak, we agreed that assessment per physical therapy would be appropriate prior to discharge. Events Overnight: No acute events overnight. ROS: Denies fever/chills, nausea/vomiting, headache, weakness, abdominal pain, chest pain, shortness of breath, increased swelling in hands or feet. Exam Vital Signs Vital Sign - Last Date Time Temp Pulse Resp B/P Pulse Ox O2 Delivery O2 Flow Rate FiO2 10/18/16 09:53 Supplement Oxygen 10/18/16 08:42 36.1 74 18 102/68 93 3.50 Intake and Output 10/17/16 10/17/16 10/18/16 Cumulative From/Thru 15:00 23:00 07:00 10/07/16 19:59 - 10/18/16 05:14 Intake Total 760 ml 800 ml 49139 ml Output Total 650 ml 950 ml 33394 ml Balance 110 ml -150 ml -5196 ml Intake Oral 760 ml 800 ml 50976 ml IV Total 692 ml Output Urine Total 650 ml 950 ml 16084 ml # Bowel Movements 1 2 Exam General: No acute distress, well-developed, obese Head: Normocephalic, atraumatic. External ears without defect. Eyes: Pupils equal, round, and reactive to light and accommodation. Anicteric sclerae, moist conjunctivae. Neck: Normal range of motion, no lymphadenopathy noted Cardiovascular: Regular rate and rhythm mild systolic murmur, rubs, or gallops appreciated Pulmonary: Clear to auscultation bilaterally. Normal respiratory effort with no use of accessory muscles. Abdomen: Bowel tones present. Soft, nontender, nondistended. Extremities: No clubbing, cyanosis, edema Skin: Normal temperature, turgor, and texture; no rash, ulcers, or subcutaneous nodules appreciated. Neurological: Cranial nerves grossly intact. Reflexes, coordination, and sensory function within normal limits. Normal muscle strength, tone, and bulk. Psychiatric: Normal mood and affect. Alert and oriented to person, place, and time IVs and Medications Medications Reviewed: Medications were reviewed in detail Medications High-risk medications include: Lovenox Warfarin Lab and Diagnostics Result Diagram: 10/18/1621910/18/16219 Assessment & Plan Ms. Pettit is a pleasant 71-year-old female with a history of COPD, chronic hypoxemic respiratory failure, obstructive sleep apnea, non-insulin using diabetes, and preserved ejection fraction heart failure, presented to the emergency department with a progressively worsening shortness of breath with exertion and intermittent nonproductive cough,, without any associated fever, or chills. She was admitted for evaluation and treatment of suspected exacerbation of preserved ejection fraction heart failure. Due to the patient's decreased mobility and inability to attend multiple clinic visits, upon discharge home the patient will require follow-up from home health for nursing care as well as follow-up on INR levels. This should be coordinated in conjunction with the INR clinic. I would expect that the patient should be seen every 2-3 days for INR check for the first several weeks to ensure levels are appropriate. We would also like home health nursing to assist the patient in evaluating blood sugar levels especially due to her long taper off of prednisone as this will make it very difficult to control. In addition, home health physical therapy would be of use to this patient especially due to her long stay in the hospital. Continue to titrate doses of Lantus as needed for glucose control, ensure diltiazem dosing adequate for rate control, PT eval, ensure kidney function improvement. New onset atrial fibrillation, not present on arrival, active This likely represents paroxysmal atrial fibrillation. Risk factors in this case include hypertension and sleep apnea. - Patient started on diltiazem drip subsequently converted to oral dosing. Patient remains in A. fib despite this measure - Started long-acting diltiazem - CHADSVASC score 6 - 10% chance per year of thrombotic event - Starting patient on warfarin - Bridging with Lovenox for 5 days - Continue to monitor Acute on chronic hypoxemic hypercarbic respiratory failure, POA, Likely multifactorial: initially more suspicion for acute decompensated HFpEF, however COPD exacerbation cannot be excluded Echo November 2015: EF 65-70, mildly calcified aortic valve. - Repeat TTE showed grossly unchanged. - Lasix discontinued due LETICIA - Continue telemetry - O2 supplement target <95% - Strict i/o, daily wt - Continue prednisone at 40 mg COPD, POA, likely COPD exacerbation as above, -chg duonebs q4h prn - Continue prednisone 40mg daily - Advair 2puffs bid 10/11 - pt needs close FU with Dr.Parimi LETICIA on CKD, present on admission, worsening due to diuretics, sCR baseline 1.10, -Renal function worsening, ensure improvement prior to discharge -will monitor closely, avoid other renal toxins, adjust meds renally. -Lisinopril decreased from 40 to 20mg 10/09, stopped 10/11 minor Tinea pedis on Left foot, Start Clotrimazole oint bid chronic nasal congesttion with PND, POA, start NS nasal spray bid, added Flonase Non-insulin using diabetes mellitus, A1c 05/2016: 10.8, -Glucose uncontrolled with increased steroid dose -Home meds: Metformin 1 g twice daily, Holding metformin at this time; - Discontinue correctional scale insulin due to the fact that patient cannot continue this schedule at home. - Start Lantus 25 units twice a day and titrate up as needed Leukocytosis, chronicity unknown, present on admission, - On admit: WBC 13.9; previous 05/22/2016 13.7 when on steroid therapy - Likely secondary to chronic steroid use - Continue to monitor for signs of infection Gout, chronic, presumed stable - Resume allopurinol 100 mg daily Coronary artery disease status post myocardial infarction, chronic, presumed stable - EKG on admission did not show any ischemic changes - Continue daily aspirin Normocytic, normochromic anemia, chronicity unknown, present on admission, presumed stable - On admit: Hb 10.6, Hct 34.6, MCV 93.8, MCH 28.7 - Continue to monitor; defer any additional workup to the outpatient setting Restless legs, chronic, presumed stable - May be secondary to underlying anemia - Continue home magnesium therapy Reported chronic sinus infection, status unknown, present on admission, presumed stable - Pt reports long standing h/o sinus infection, not currently on tx - Defer further workup to outpatient setting if needed Goals of care, ongoing - Patient discussed that during this hospitalization she would like to complete a POLST form - LOREN comm request placed to provide form to patient to review -complete signatures prior to discharge PRN: Bowel, fever, pain, nausea DVT: Hep q8 GI: PPI, home dose Diet: Heart/carb Code: DNR/DNI Disposition: Patient will likely require 1-2 more nights of inpatient management prior to discharge home. Pain Evaluation: Adequate Pain Control GI Prophylaxis: Proton Pump Inhibitor VTE Prophylaxis: Sub-Q Heparin (Unfractionated) VTE Mechanical Devices: Intermittant Pneumatic CD Resuscitation Status: DNR/DNI:Do Not Resuscitate/Intubate Attending Statement The patient was seen and examined together with Dr. Villarreal on 10/18/2016 and I agree with the history, exam and plan as outlined in the note above. . Lamonte Villarreal DO Oct 18, 2016 11:24 Eddie Mensah MD Oct 18, 2016 15:28
--- NOTE | 2016-10-18 12:43 | NUR ---
Re-Evaluation completed/discharge to nsg Please go to "Notes" then click on "Assessments and Notes" (bottom left corner of screen). Then select appropriate discipline tab on top of screen. approp to be up with nsg with FWW and SBA
[2016-10-18] MEDS ORDERED: Insulin LISPRO 300 Unit/3 mL Inj SUBQ ONE (17:45)
--- NOTE | 2016-10-18 18:47 | NUR ---
Blood Glucose Pt blood glucose at dinner BG check 488. notified. A one time dose of 10 units Lispro was ordered and administered. also increased evening dose of Lantis to 35units.
[2016-10-18] MEDS: Insulin GLARgine 100 Unit/mL Syringe SUBQ SCH (20:28)
[2016-10-19] VITALS (13 sets, daily range): BP systolic 107–132; BP diastolic 66–90; PULSE 65–130; RESP 19–26; O2SAT 90–96
[2016-10-19 02:52] LABS: Mean Corpuscular Hemoglobin 29.1 pg (27.0-35.0); Mean Corpuscular Volume 90.5 fL (81-100)
[2016-10-19 03:05] LABS: INR 0.95 ratio
--- NOTE | 2016-10-19 03:25 | NUR ---
Activity: Pt. sitting in chair during shift. Ambulates to BSC (few steps) and back to chair. Pt. states "I'm just too tired to walk (in hallway) tonight". Pt. agrees to walk in hallway during day shift on 10/19/16, and adds "I'll walk three times". No overt signs or symptoms of distress.
[2016-10-19] MEDS: Albuterol-Ipratropium 3 mL Inhalation Solution NEB PRN ×3 (07:40→16:15)
[2016-10-19] MEDS: Pantoprazole 40 mg ER24 Tablet PO SCH (08:25)
[2016-10-19] MEDS: predniSONE 20 mg Tablet PO SCH (08:26)
[2016-10-19] MEDS: Fluticasone 0.05% 15 Spray/2 Gm 16 Gm Nasal Spray NASAL SCH ×2 (08:27→19:55)
[2016-10-19] MEDS: Fluticasone-Salmererol 250-50 Inhaler INHALATION SCH ×2 (08:27→19:55)
[2016-10-19] MEDS: Diltiazem CD 180 mg ER24 Capsule PO SCH ×2 (08:27→19:56)
[2016-10-19] MEDS: Insulin GLARgine 100 Unit/mL Syringe SUBQ SCH ×2 (08:29→23:13)
--- NOTE | 2016-10-19 10:48 | PCM.PHAPRO ---
Progress Shortness of breath with exertion WARFARIN MANAGEMENT - NEW START Indication: A.Fib Goal: 2-3 On Lovenox 1mg/kg q12h INR: 0.95, HCT 34.2, [id number], SCr 1.68 Date 1-Oct 2-Sep 3-Sep INR 0.89 0.92 0.95 INR change 0.03 0.03 Warf Dose 5 5MG 7.5MG A/P: * warfarin 7.5mg today * Est. CrCl 32-41, will monitor and adjust lovenox if SCr continues to rise Yudi Moore Pharm.D Oct 19, 2016 10:45
[2016-10-19] MEDS: CLOTRIMAZOLE 1% TOPICAL SCH ×2 (11:25→19:54)
[2016-10-19] MEDS ORDERED: Glucose 40% Oral Gel 15 Gm Tube PO PRN (12:10)
--- NOTE | 2016-10-19 12:28 | NUR ---
Social Work Note: Continued Discharge Planning/Multidisciplinary Rounds Data & Assessment: EMR reviewed. Pt is on day 11 of hospitalization. Pt discussed in multidisciplinary rounds, pt continues to have uncontrolled blood glucose. Pt will require HHRN for INR checks and continued strengthening through HHPT. Pt has chosen [facility] for use at d/c. [facility] is unavailable today to confirm coordination of services as they are only open M-F. Pt is not anticipated to d/c for another few days given her glucose levels, but [facility] services should be coordinated and start date confirmed prior to d/c. has F2F for completion. has not completed F2F at this time. No additional d/c planning needs discussed, SW continues to follow. Pt updated and agreeable to plan. Plan: Anticipated discharge home with her daughter and [facility] RN for Warfrin and INR Checks, blood sugar checks and PT for strengthening. F2F has been given to , not complete at this time. No other MD orders at this time. 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 KARLEE Rae
[2016-10-19] MEDS: Insulin LISPRO 300 Unit/3 mL Inj SUBQ SCH ×2 (18:26→23:13)
--- NOTE | 2016-10-19 19:06 | NUR ---
Activity/Resp/Tele/Glucose Patient a/o x 4, denies pain or nausea, but has dyspnea at rest and with exertion. Patient up indep in room and sba in halls, [facility]. Tele A fib 100-120's at rest and 120-160's with activity, patient asymptomatic except dyspnea. Glucose 200-400's MD aware and new orders recieved. Patient showered this afternoon with assist of family. Booklets given on A fib Coumadin and Diabetes.
--- NOTE | 2016-10-19 20:19 | PCM.PNMED ---
Subjective Date of Service Oct 19, 2016 Subjective overnight: No acute events noted overnight Today: The patient states that she feels better feeling that her breathing is improved. The patient states that in the morning she became nervous as her call light was not working however this was resolved by her calling the hospital by her cell phone. The patient is concerned about her difficulty with controlling her blood sugars given her need for prednisone. The patient understands that she requires increased insulin on prednisone and will have to titrate her insulin doses according to her blood sugars in the future. Exam Vital Signs Vital Sign - Last Date Time Temp Pulse Resp B/P Pulse Ox O2 Delivery O2 Flow Rate FiO2 10/19/16 07:41 65 19 93 Nasal Cannula 3.50 10/19/16 02:29 36.5 132/90 Intake and Output 10/18/16 10/18/16 10/19/16 Cumulative From/Thru 15:00 23:00 07:00 10/07/16 19:59 - 10/19/16 04:51 Intake Total 800 ml 400 ml 87788 ml Output Total 900 ml 800 ml 04406 ml Balance -100 ml -400 ml -5696 ml Intake Oral 800 ml 400 ml 23417 ml IV Total 692 ml Output Urine Total 900 ml 800 ml 05854 ml # Bowel Movements 0 0 2 Exam General: Elderly female with cushingoid body habitus, No acute distress, well- developed, obese Head: Normocephalic, atraumatic. External ears without defect. Eyes: Pupils equal, round, and reactive to light and accommodation. Anicteric sclerae, moist conjunctivae. Neck: Normal range of motion, no lymphadenopathy noted Cardiovascular: Irregularly irregular rate and rhythm, mild systolic murmur, rubs, or gallops appreciated Pulmonary: Mild coarse breath sounds bilaterally without wheezing. Normal respiratory effort with no use of accessory muscles. Abdomen: Bowel tones present. Soft, nontender, nondistended. Extremities: Significant moderate noted bilateral pitting edema below the knee, No clubbing or cyanosis Skin: Normal temperature, turgor, and texture; no rash, ulcers, or subcutaneous nodules appreciated. Neurological: Cranial nerves grossly intact. Reflexes, coordination, and sensory function within normal limits. Normal muscle strength, tone, and bulk. Psychiatric: Normal mood and affect. Alert and oriented to person, place, and time Lab and Diagnostics Result Diagram: 10/19/16 0215 10/18/16 0220 X-Rays, CTs and MRIs X-RAY CHEST ONE VIEW, PORTABLE IMPRESSION: Persistent mild congestive heart failure. Approved by: Earl Gabriel M.D. on 10/11/2016 at 12:53 Assessment & Plan Ms. Pettit is a pleasant 71-year-old female with a history of COPD, chronic hypoxemic respiratory failure, obstructive sleep apnea, non-insulin using diabetes, and preserved ejection fraction heart failure, presented to the emergency department with a progressively worsening shortness of breath with exertion and intermittent nonproductive cough,, without any associated fever, or chills. She was admitted for evaluation and treatment of suspected exacerbation of preserved ejection fraction heart failure. New onset atrial fibrillation, not present on arrival, active This likely represents paroxysmal atrial fibrillation. Risk factors in this case include hypertension and sleep apnea. - Patient started on diltiazem drip subsequently converted to oral dosing. Patient remains in A. fib despite this measure - Started long-acting diltiazem - CHADSVASC score 6 - 10% chance per year of thrombotic event - Starting patient on warfarin - Bridging with Lovenox for 5 days - Continue to monitor Acute on chronic hypoxemic hypercarbic respiratory failure, POA, Likely multifactorial: initially more suspicion for acute decompensated HFpEF, however COPD exacerbation cannot be excluded Echo November 2015: EF 65-70, mildly calcified aortic valve. - Repeat TTE showed grossly unchanged. - Lasix discontinued due LETICIA - Continue telemetry - O2 supplement target <95% - Strict i/o, daily wt - Continue prednisone at 40 mg acute exacerbation of chronic obstructive pulmonary disease, present on admission, improving - duonebs q4h prn - Continue prednisone 40mg daily will require a prolonged taper at discharge - Advair 2puffs bid 10/11 - pt needs close FU with with pulmonology appointment scheduled in October Acute kidney injury on chronic kidney disease, present on admission, worsening due to diuretics, sCR baseline 1.10, -Renal function worsening, ensure improvement prior to discharge -will monitor closely, avoid other renal toxins, adjust meds renally. -Lisinopril decreased from 40 to 20mg 10/09, stopped 10/11 minor Tinea pedis on Left foot, Start Clotrimazole oint bid chronic nasal congestion with postnasal drip, POA, -start NS nasal spray bid, added Flonase -Initiated montelukast 10 mg at bedtime -Patient advised to start [id number] second-generation antihistamine Non-insulin using diabetes mellitus, A1c 05/2016: 10.8, -Glucose uncontrolled with increased steroid dose -Home meds: Metformin 1 g twice daily, Holding metformin at this time; - Lantus 40 units twice a day with addition of high-dose correction scale lispro with aim of titrating total 24-hour insulin requirements Leukocytosis, chronicity unknown, present on admission, - On admit: WBC 13.9; previous 05/22/2016 13.7 when on steroid therapy - Likely secondary to chronic steroid use - Continue to monitor for signs of infection Gout, chronic, presumed stable - Resume allopurinol 100 mg daily Coronary artery disease status post myocardial infarction, chronic, presumed stable - EKG on admission did not show any ischemic changes - Continue daily aspirin Normocytic, normochromic anemia, chronicity unknown, present on admission, presumed stable - On admit: Hb 10.6, Hct 34.6, MCV 93.8, MCH 28.7 - Continue to monitor; defer any additional workup to the outpatient setting Restless legs, chronic, presumed stable - May be secondary to underlying anemia - Continue home magnesium therapy Reported chronic sinus infection, status unknown, present on admission, presumed stable - Pt reports long standing h/o sinus infection, not currently on tx - Defer further workup to outpatient setting if needed Goals of care, ongoing - Patient discussed that during this hospitalization she would like to complete a POLST form - LOREN comm request placed to provide form to patient to review -complete signatures prior to discharge PRN: Bowel, fever, pain, nausea DVT: Hep q8 GI: PPI, home dose Diet: Heart/carb Code: DNR/DNI Disposition: Patient will likely require 1-2 more nights of inpatient management prior to discharge home. Pain Evaluation: Adequate Pain Control GI Prophylaxis: Proton Pump Inhibitor VTE Prophylaxis: Sub-Q Heparin (Unfractionated) VTE Mechanical Devices: Intermittant Pneumatic CD Resuscitation Status: DNR/DNI:Do Not Resuscitate/Intubate Attending Statement The patient was seen and examined together with Dr. Sinha on 10/19/2016 and I agree with the history, exam and plan as outlined in the note above. . Jt Sinha DO Oct 19, 2016 07:56 Eddie Mensah MD Oct 20, 2016 13:51
[2016-10-20] VITALS (10 sets, daily range): BP systolic 110–149; BP diastolic 72–76; PULSE 65–129; RESP 18–24; O2SAT 93–95
[2016-10-20 02:43] LABS: Mean Corpuscular Hemoglobin 29.2 pg (27.0-35.0); Mean Corpuscular Volume 91.8 fL (81-100)
[2016-10-20 02:56] LABS: INR 1.04 ratio
[2016-10-20 03:46] LABS: Magnesium 2.3 mg/dL (1.6-2.6); Phosphorus 3.7 mg/dL (2.5-4.9)
--- NOTE | 2016-10-20 04:05 | NUR ---
Glucose/Tele Pt BG 238 administered 2 units Lispro and 40 units Lantus AM glucose 142. Pt Tele at beginning of shift Afib 115's to 130's, administered PM dose of cardizem and Tele Afib 80's to 100's.
--- NOTE | 2016-10-20 07:35 | PCM.PHAPRO ---
Progress Date of Service: Oct 20, 2016 Warfarin Date 1-Oct 2-Oct 3-Oct 20-Oct INR 0.89 0.92 0.95 1.04 INR change 0.03 0.03 0.09 Warf Dose 5 MG 5 MG 7.5 MG 7.5 MG Eddie oFrrest Oct 20, 2016 07:35
[2016-10-20] MEDS: Pantoprazole 40 mg ER24 Tablet PO SCH (07:36)
[2016-10-20] MEDS: Fluticasone 0.05% 15 Spray/2 Gm 16 Gm Nasal Spray NASAL SCH ×2 (07:37→20:57)
[2016-10-20] MEDS: Fluticasone-Salmererol 250-50 Inhaler INHALATION SCH ×2 (07:37→20:57)
[2016-10-20] MEDS: Insulin GLARgine 100 Unit/mL Syringe SUBQ SCH ×2 (07:38→20:58)
[2016-10-20] MEDS: Diltiazem CD 180 mg ER24 Capsule PO SCH (07:39)
[2016-10-20] MEDS: predniSONE 20 mg Tablet PO SCH (07:39)
[2016-10-20] MEDS: Insulin LISPRO 300 Unit/3 mL Inj SUBQ SCH ×4 (07:40→21:01)
[2016-10-20] MEDS ORDERED: Diltiazem CD 120 mg ER24 Capsule PO ONE (10:40)
--- NOTE | 2016-10-20 12:13 | PCM.PNMED ---
Subjective Date of Service Oct 20, 2016 Subjective Subjective: Patient states she is feeling well at the moment, states that with minimal exertion she experiences minor lightheadedness Events Overnight: No acute events overnight. ROS: Denies fever/chills, nausea/vomiting, headache, weakness, abdominal pain, chest pain, shortness of breath, increased swelling in hands or feet. Exam Vital Signs Vital Sign - Last Date Time Temp Pulse Resp B/P Pulse Ox O2 Delivery O2 Flow Rate FiO2 10/20/16 11:45 36.7 77 22 122/72 93 Nasal Cannula 2.50 Intake and Output 10/19/16 10/19/16 10/20/16 Cumulative From/Thru 15:00 23:00 07:00 10/07/16 19:59 - 10/20/16 05:05 Intake Total 500 ml 200 ml 96203 ml Output Total 625 ml 350 ml 67126 ml Balance -125 ml -150 ml -5971 ml Intake Oral 500 ml 200 ml 61330 ml IV Total 692 ml Output Urine Total 625 ml 350 ml 05367 ml # Bowel Movements 1 0 3 Exam General: No acute distress, well-developed, obese Head: Normocephalic, atraumatic. External ears without defect. Eyes: Pupils equal, round, and reactive to light and accommodation. Anicteric sclerae, moist conjunctivae. Neck: Normal range of motion, no lymphadenopathy noted Cardiovascular: Regular rate and rhythm mild systolic murmur, no rubs or gallops appreciated Pulmonary: Clear to auscultation bilaterally. Normal respiratory effort with no use of accessory muscles. Abdomen: Bowel tones present. Soft, nontender, nondistended. Extremities: No clubbing, cyanosis, edema Skin: Normal temperature, turgor, and texture; no rash, ulcers, or subcutaneous nodules appreciated. Neurological: Cranial nerves grossly intact. Reflexes, coordination, and sensory function within normal limits. Normal muscle strength, tone, and bulk. Psychiatric: Normal mood and affect. Alert and oriented to person, place, and time IVs and Medications Medications Reviewed: Medications were reviewed in detail Lab and Diagnostics Result Diagram: 10/20/1620910/20/16209 X-Rays, CTs and MRIs X-RAY CHEST ONE VIEW, PORTABLE IMPRESSION: Persistent mild congestive heart failure. Approved by: Earl Gabriel M.D. on 10/11/2016 at 12:53 Assessment & Plan Ms. Pettit is a pleasant 71-year-old female with a history of COPD, chronic hypoxemic respiratory failure, obstructive sleep apnea, non-insulin using diabetes, and preserved ejection fraction heart failure, presented to the emergency department with a progressively worsening shortness of breath with exertion and intermittent nonproductive cough, without any associated fever, or chills. She was admitted for evaluation and treatment of suspected exacerbation of preserved ejection fraction heart failure. New onset atrial fibrillation, not present on arrival, active This likely represents paroxysmal atrial fibrillation. Risk factors in this case include hypertension and sleep apnea. - Patient started on diltiazem drip subsequently converted to oral dosing. Patient remains in A. fib despite this measure - Started long-acting diltiazem - With minimal activity HR increased above desired range. Dose increased to 240 on 10/20 continue to monitor. - CHADSVASC score 6 - 10% chance per year of thrombotic event - Starting patient on warfarin - Bridging with Lovenox for 5 days (last dose on the morning of 10/22) Acute on chronic hypoxemic hypercarbic respiratory failure, POA, Likely multifactorial: initially more suspicion for acute decompensated HFpEF, however COPD exacerbation cannot be excluded Echo November 2015: EF 65-70, mildly calcified aortic valve. - Repeat TTE showed grossly unchanged. - Restart home lasix - Continue telemetry - O2 supplement target <95% - Strict i/o, daily wt - Continue prednisone at 40 mg acute exacerbation of chronic obstructive pulmonary disease, present on admission, improving - duonebs q4h prn - Continue prednisone 40mg daily will require a prolonged taper at discharge - Advair 2puffs bid 10/11 - pt needs close FU with with pulmonology appointment scheduled in October Acute kidney injury on chronic kidney disease, present on admission, worsening due to diuretics, sCR baseline 1.10, -Improved 10/20 -will monitor closely, avoid other renal toxins, adjust meds renally. -Lisinopril decreased from 40 to 20mg 10/09, stopped 10/11 minor Tinea pedis on Left foot, Start Clotrimazole oint bid chronic nasal congestion with postnasal drip, POA, -start NS nasal spray bid, added Flonase -Initiated montelukast 10 mg at bedtime -Patient advised to start [id number] second-generation antihistamine Non-insulin using diabetes mellitus, A1c 05/2016: 10.8, - Glucose uncontrolled with increased steroid dose - Restart Metformin 500mg TIDWM, - Lantus 45 units twice a day with addition of high-dose correction scale lispro with aim of titrating total 24-hour insulin requirements - Goal is to attempt BID dosing of lantus as pt is unable to dose herself at home, but daughter is able to do this morning and night. Leukocytosis, chronicity unknown, present on admission, - On admit: WBC 13.9; previous 05/22/2016 13.7 when on steroid therapy - Likely secondary to chronic steroid use - Continue to monitor for signs of infection Gout, chronic, presumed stable - Resume allopurinol 100 mg daily Coronary artery disease status post myocardial infarction, chronic, presumed stable - EKG on admission did not show any ischemic changes - Continue daily aspirin Normocytic, normochromic anemia, chronicity unknown, present on admission, presumed stable - On admit: Hb 10.6, Hct 34.6, MCV 93.8, MCH 28.7 - Continue to monitor; defer any additional workup to the outpatient setting Restless legs, chronic, presumed stable - May be secondary to underlying anemia - Continue home magnesium therapy Reported chronic sinus infection, status unknown, present on admission, presumed stable - Pt reports long standing h/o sinus infection, not currently on tx - Defer further workup to outpatient setting if needed Goals of care, ongoing - Patient discussed that during this hospitalization she would like to complete a POLST form - LOREN comm request placed to provide form to patient to review -complete signatures prior to discharge PRN: Bowel, fever, pain, nausea DVT: Hep q8 GI: PPI, home dose Diet: Heart/carb Code: DNR/DNI Disposition: Patient will likely require 1-2 more nights of inpatient management prior to discharge home. GI Prophylaxis: Proton Pump Inhibitor VTE Prophylaxis: Sub-Q Heparin (Unfractionated) VTE Mechanical Devices: Intermittant Pneumatic CD Resuscitation Status: DNR/DNI:Do Not Resuscitate/Intubate Attending Statement The patient was seen and examined together with Dr. Villarreal on 10/20/16 and I have added additional information to the note above. Lamonte Villarreal DO Oct 20, 2016 12:13 Radha Chiang DO Oct 24, 2016 18:49
[2016-10-20] MEDS: CLOTRIMAZOLE 1% TOPICAL SCH ×2 (12:14→20:59)
--- NOTE | 2016-10-20 18:28 | NUR ---
Resp/Tele/Activity Patient a/o x 3, c/o back pain this a.m Tylenol x 1 given with good effect. Patient amb in [place] x 2 approx 50 feet each time. O2 @ 4 L with activity, sat 92% HR 140's, RR 28-30 min. Lungs course bilat, neb tx given scheduled per RTC. Blood glucose 122-237, sliding scale insulin and po meds given.
[2016-10-20] MEDS: Albuterol-Ipratropium 3 mL Inhalation Solution NEB PRN (19:49)
[2016-10-20] MEDS: Diltiazem CD 240 mg ER24 Capsule PO SCH (21:14)
[2016-10-21] VITALS (12 sets, daily range): BP systolic 102–131; BP diastolic 60–72; PULSE 56–119; RESP 18–24; O2SAT 93–98
[2016-10-21 03:26] LABS: INR 1.44 ratio
--- NOTE | 2016-10-21 06:45 | NUR ---
Cardiac Prior to give Diltiazem CD 240 mg Tele A-Fib with HR 110s-120s at rest and 130s with exertion. After Diltiazem given A-Fib HR 90s- 100s at res 110S with exertion. VSS. No overt complications noted.
[2016-10-21] MEDS: Insulin LISPRO 300 Unit/3 mL Inj SUBQ SCH ×4 (08:00→23:14)
[2016-10-21] MEDS: Albuterol-Ipratropium 3 mL Inhalation Solution NEB PRN ×3 (08:18→16:45)
[2016-10-21] MEDS: Pantoprazole 40 mg ER24 Tablet PO SCH (09:10)
[2016-10-21] MEDS: predniSONE 20 mg Tablet PO SCH (09:10)
[2016-10-21] MEDS: CLOTRIMAZOLE 1% TOPICAL SCH ×2 (09:11→20:07)
[2016-10-21] MEDS: Fluticasone 0.05% 15 Spray/2 Gm 16 Gm Nasal Spray NASAL SCH ×2 (09:12→20:07)
[2016-10-21] MEDS: Fluticasone-Salmererol 250-50 Inhaler INHALATION SCH ×2 (09:12→20:07)
[2016-10-21] MEDS: Insulin GLARgine 100 Unit/mL Syringe SUBQ SCH ×2 (09:16→23:13)
[2016-10-21] MEDS: Diltiazem CD 240 mg ER24 Capsule PO SCH ×2 (09:16→20:07)
[2016-10-21] MEDS ORDERED: MeTOProlol XL 25 mg ER24 Tablet PO ONE (13:55)
--- NOTE | 2016-10-21 14:04 | PCM.PNMED ---
Subjective Date of Service Oct 21, 2016 Subjective Subjective: Patient states she is feeling well at the moment, complains of SOB when getting up to go to the bathroom. concerned about going home with too much smoke outside. Events Overnight: No acute events overnight. ROS: Denies fever/chills, nausea/vomiting, headache, weakness, abdominal pain, chest pain, shortness of breath, increased swelling in hands or feet. Exam Vital Signs Vital Sign - Last Date Time Temp Pulse Resp B/P Pulse Ox O2 Delivery O2 Flow Rate FiO2 10/21/16 12:27 36.5 56 18 131/70 98 Nasal Cannula 3.00 Intake and Output 10/20/16 10/20/16 10/21/16 Cumulative From/Thru 15:00 23:00 07:00 10/07/16 19:59 - 10/21/16 06:50 Intake Total 1290 ml 400 ml 86893 ml Output Total 1100 ml 45582 ml Balance 190 ml 400 ml -5381 ml Intake Oral 1290 ml 400 ml 34072 ml IV Total 692 ml Output Urine Total 1100 ml 59095 ml # Voids 2 2 # Bowel Movements 3 Exam General: No acute distress, well-developed, obese Head: Normocephalic, atraumatic. External ears without defect. Eyes: Pupils equal, round, and reactive to light and accommodation. Anicteric sclerae, moist conjunctivae. Neck: Normal range of motion, no lymphadenopathy noted Cardiovascular: Regular rate and rhythm mild systolic murmur, no rubs or gallops appreciated Pulmonary: Clear to auscultation bilaterally. Normal respiratory effort with no use of accessory muscles. Abdomen: Bowel tones present. Soft, nontender, nondistended. Extremities: No clubbing, cyanosis, edema Skin: Normal temperature, turgor, and texture; no rash, ulcers, or subcutaneous nodules appreciated. Neurological: Cranial nerves grossly intact. Reflexes, coordination, and sensory function within normal limits. Normal muscle strength, tone, and bulk. Psychiatric: Normal mood and affect. Alert and oriented to person, place, and time IVs and Medications Medications Reviewed: Medications were reviewed in detail Lab and Diagnostics Result Diagram: 10/21/16 02310/21/16 0230 X-Rays, CTs and MRIs X-RAY CHEST ONE VIEW, PORTABLE IMPRESSION: Persistent mild congestive heart failure. Approved by: Earl Gabriel M.D. on 10/11/2016 at 12:53 Assessment & Plan Ms. Pettit is a pleasant 71-year-old female with a history of COPD, chronic hypoxemic respiratory failure, obstructive sleep apnea, non-insulin using diabetes, and preserved ejection fraction heart failure, presented to the emergency department with a progressively worsening shortness of breath with exertion and intermittent nonproductive cough, without any associated fever, or chills. She was admitted for evaluation and treatment of suspected exacerbation of preserved ejection fraction heart failure. New onset atrial fibrillation, not present on arrival, active This likely represents paroxysmal atrial fibrillation. Risk factors in this case include hypertension and sleep apnea. - Patient started on diltiazem drip subsequently converted to oral dosing. Patient remains in A. fib despite this measure - Started long-acting diltiazem - With minimal activity HR increased above desired range. Dose increased to 240 on 10/20 with minimal effect - Per cardiology recommendations metopolol succinate initiated at 25mg - CHADSVASC score 6 - 10% chance per year of thrombotic event - Starting patient on warfarin - Bridging with Lovenox for 5 days (last dose on the morning of 10/22) Acute on chronic hypoxemic hypercarbic respiratory failure, POA, resolving Likely multifactorial: initially more suspicion for acute decompensated HFpEF, however COPD exacerbation cannot be excluded Echo November 2015: EF 65-70, mildly calcified aortic valve. - Repeat TTE showed grossly unchanged. - Restart home lasix - Continue telemetry - O2 supplement target <95% - Strict i/o, daily wt - Continue prednisone at 40 mg acute exacerbation of chronic obstructive pulmonary disease, present on admission, improving - duonebs q4h prn - decrease prednisone to 30mg daily will require a prolonged taper at discharge - Advair 2puffs bid 10/11 - pt needs close FU with with pulmonology appointment scheduled in October Acute kidney injury on chronic kidney disease, present on admission, worsening due to diuretics, sCR baseline 1.10, -Improved 10/20 -will monitor closely, avoid other renal toxins, adjust meds renally. -Lisinopril decreased from 40 to 20mg 10/09, stopped 10/11 minor Tinea pedis on Left foot, Start Clotrimazole oint bid chronic nasal congestion with postnasal drip, POA, -start NS nasal spray bid, added Flonase -Initiated montelukast 10 mg at bedtime -Patient advised to start [id number] second-generation antihistamine Non-insulin using diabetes mellitus, A1c 05/2016: 10.8, - Glucose uncontrolled with increased steroid dose - Restart Metformin 500mg TIDWM, - Lantus 45 units twice a day with addition of high-dose correction scale lispro with aim of titrating total 24-hour insulin requirements - Goal is to attempt BID dosing of lantus as pt is unable to dose herself at home, but daughter is able to do this morning and night. Leukocytosis, chronicity unknown, present on admission, - On admit: WBC 13.9; previous 05/22/2016 13.7 when on steroid therapy - Likely secondary to chronic steroid use - Continue to monitor for signs of infection Gout, chronic, presumed stable - Resume allopurinol 100 mg daily Coronary artery disease status post myocardial infarction, chronic, presumed stable - EKG on admission did not show any ischemic changes - Continue daily aspirin Normocytic, normochromic anemia, chronicity unknown, present on admission, presumed stable - On admit: Hb 10.6, Hct 34.6, MCV 93.8, MCH 28.7 - Continue to monitor; defer any additional workup to the outpatient setting Restless legs, chronic, presumed stable - May be secondary to underlying anemia - Continue home magnesium therapy Reported chronic sinus infection, status unknown, present on admission, presumed stable - Pt reports long standing h/o sinus infection, not currently on tx - Defer further workup to outpatient setting if needed Goals of care, ongoing - Patient discussed that during this hospitalization she would like to complete a POLST form - LOREN comm request placed to provide form to patient to review -complete signatures prior to discharge PRN: Bowel, fever, pain, nausea DVT: Hep q8 GI: PPI, home dose Diet: Heart/carb Code: DNR/DNI Disposition: Patient will likely require 1-2 more nights of inpatient management prior to discharge home. GI Prophylaxis: Proton Pump Inhibitor VTE Prophylaxis: Sub-Q Heparin (Unfractionated) VTE Mechanical Devices: Intermittant Pneumatic CD Resuscitation Status: DNR/DNI:Do Not Resuscitate/Intubate Attending Statement The patient was seen and examined together with Dr. Villarreal on 10/21/16 and I have added additional information to the note above. Lamonte Villarreal DO Oct 21, 2016 14:04 Radha Chiang DO Oct 24, 2016 18:48
--- NOTE | 2016-10-21 15:25 | NUR ---
HOME HEALTH FOLLOW UP : Called and spoke with Martine at [facility] and gave her access, faxed facesheet to [phone]. They can having nursing out to open this week. We will fax face to face once patient has one completed. Updated GROUND DEFENCE OFFICER
--- NOTE | 2016-10-21 15:45 | NUR ---
Social Work: Readiness for Discharge/Multidisciplinary Rounds D: Pt discussed in multidisciplinary rounds; the patient is not yet medically stable and will require 1-2 more days of hospitalization. ORGANIZATIONAL PSYCHOLOGIST met with the patient at bedside to follow up with discharge plan and asses for unmet needs. Pt confirms her plan is now to discharge home with [facility] for RN and PT care. She denies any other needs and states that her daughter, whom she lives , will transport her home. She identifies no other needs at this time ORGANIZATIONAL PSYCHOLOGIST requested Crm Campaign Manager confirm with [facility] to verify that they have received referral and are tracking the patient for admission. She confirms that she spoke with [facility]. They had not received all of the patient's clinicals, protein specialist faxed these and they will await completed F2F. A: Pt who is I at baseline and lives with her daughter P: Anticipate pt to discharge home via POV with [facility] for RN, PT care. Pt's daughter to transport. ORGANIZATIONAL PSYCHOLOGIST to continue to follow to assess for unmet discharge needs. KARLEE Tony
--- NOTE | 2016-10-21 19:42 | NUR ---
HR Pt's HR 130s-150s a fib this am prior to am medications. Pt received am dose of 240mg diltiazem and rates remained roughly the same ~1.5 hours after the dose, MD made aware, one time dose of 25mg metoprolol ordered. Pt's HR trended down to 100s-120s for remainder of the shift.
[2016-10-22] VITALS (12 sets, daily range): BP systolic 107–112; BP diastolic 55–69; PULSE 61–112; RESP 18–22; O2SAT 93–96
[2016-10-22 04:26] LABS: INR 2.07 ratio
--- NOTE | 2016-10-22 05:19 | NUR ---
Cardiac/BG/Pain Pt received PM dose of 240mg Cardizem and pt HR Afib 80's to 120's. Pt PM BG 193, 45 units Lantus given and pt BG @ 0330 152. Pt requesting cranberry juice, educated pt on the effects of sugary juices with DM. Pt verbalized understanding and declined juice. Pt c/o pain in back from chair 9/10 Administered 650mg of Tylenol and effective. Pt able to rest at times. VSS.
[2016-10-22] MEDS: Insulin LISPRO 300 Unit/3 mL Inj SUBQ SCH ×4 (08:00→21:46)
[2016-10-22] MEDS: Albuterol-Ipratropium 3 mL Inhalation Solution NEB PRN ×3 (08:12→16:41)
[2016-10-22] MEDS: Insulin GLARgine 100 Unit/mL Syringe SUBQ SCH ×2 (08:45→21:46)
[2016-10-22] MEDS: predniSONE 20 mg Tablet PO SCH (08:48)
[2016-10-22] MEDS: Pantoprazole 40 mg ER24 Tablet PO SCH (08:48)
[2016-10-22] MEDS: Fluticasone 0.05% 15 Spray/2 Gm 16 Gm Nasal Spray NASAL SCH ×2 (08:49→21:33)
[2016-10-22] MEDS: Fluticasone-Salmererol 250-50 Inhaler INHALATION SCH ×2 (08:49→21:33)
[2016-10-22] MEDS: Diltiazem CD 240 mg ER24 Capsule PO SCH ×2 (08:53→21:34)
[2016-10-22] MEDS: MeTOProlol XL 50 mg ER24 Tablet PO SCH ×2 (08:53→21:34)
--- NOTE | 2016-10-22 09:36 | PCM.PNMED ---
Subjective Date of Service Oct 22, 2016 Subjective Subjective: Patient sitting up in chair and on exam, states that she continues to feel well with increased heart rate upon minimal exertion. Discussed possibility of meeting with diabetes care in conjunction with her daughter who will be managing her insulin care going forward Events Overnight: No acute events overnight. ROS: Denies fever/chills, nausea/vomiting, headache, weakness, abdominal pain, chest pain, shortness of breath, increased swelling in hands or feet. Exam Vital Signs Vital Sign - Last Date Time Temp Pulse Resp B/P Pulse Ox O2 Delivery O2 Flow Rate FiO2 10/22/16 08:13 36.6 75 20 112/68 94 Nasal Cannula 3.00 Intake and Output 10/21/16 10/21/16 10/22/16 Cumulative From/Thru 15:00 23:00 07:00 10/07/16 19:59 - 10/22/16 06:52 Intake Total 800 ml 300 ml 89581 ml Output Total 1450 ml 250 ml 10766 ml Balance -650 ml 50 ml -5981 ml Intake Oral 800 ml 300 ml 09650 ml IV Total 692 ml Output Urine Total 1450 ml 250 ml 38297 ml # Voids 2 # Bowel Movements 1 4 Exam General: No acute distress, well-developed, obese Head: Normocephalic, atraumatic. External ears without defect. Eyes: Pupils equal, round, and reactive to light and accommodation. Anicteric sclerae, moist conjunctivae. Neck: Normal range of motion, no lymphadenopathy noted Cardiovascular: Irregularly irregular rhythm mild systolic murmur, no rubs or gallops appreciated Pulmonary: Clear to auscultation bilaterally. Normal respiratory effort with no use of accessory muscles. Abdomen: Bowel tones present. Soft, nontender, nondistended. Extremities: No clubbing, cyanosis, edema Skin: Normal temperature, turgor, and texture; no rash, ulcers, or subcutaneous nodules appreciated. Neurological: Cranial nerves grossly intact. Reflexes, coordination, and sensory function within normal limits. Normal muscle strength, tone, and bulk. Psychiatric: Normal mood and affect. Alert and oriented to person, place, and time IVs and Medications Medications Reviewed: Medications were reviewed in detail Lab and Diagnostics Result Diagram: 10/22/16 0320 10/22/16 0320 X-Rays, CTs and MRIs X-RAY CHEST ONE VIEW, PORTABLE IMPRESSION: Persistent mild congestive heart failure. Approved by: Earl Gabriel M.D. on 10/11/2016 at 12:53 Assessment & Plan Ms. Pettit is a pleasant 71-year-old female with a history of COPD, chronic hypoxemic respiratory failure, obstructive sleep apnea, non-insulin using diabetes, and preserved ejection fraction heart failure, presented to the emergency department with a progressively worsening shortness of breath with exertion and intermittent nonproductive cough, without any associated fever, or chills. She was admitted for evaluation and treatment of suspected exacerbation of preserved ejection fraction heart failure. New onset atrial fibrillation, not present on arrival, active This likely represents paroxysmal atrial fibrillation. Risk factors in this case include hypertension and sleep apnea. - Patient started on diltiazem drip subsequently converted to oral dosing. Patient remains in A. fib despite this measure - Started long-acting diltiazem - With minimal activity HR remains increased above desired range. Dose increased to 240 on 10/20 with minimal effect - Per cardiology recommendations metopolol succinate initiated at 25mg, increased to 50 mg on 10/22 - CHADSVASC score 6 - 10% chance per year of thrombotic event - Continue warfarin - Last dose of Lovenox given on 10/22 Acute on chronic hypoxemic hypercarbic respiratory failure, POA, resolving Likely multifactorial: initially more suspicion for acute decompensated HFpEF, however COPD exacerbation cannot be excluded Echo November 2015: EF 65-70, mildly calcified aortic valve. - Repeat TTE showed grossly unchanged. - Restart home lasix - Continue telemetry - O2 supplement target <95% - Continue prednisone at 30 mg acute exacerbation of chronic obstructive pulmonary disease, present on admission, improving - duonebs q4h prn - decrease prednisone to 30mg daily will require a prolonged taper at discharge - Advair 2puffs bid 10/11 - pt needs close FU with with pulmonology appointment scheduled in October Acute kidney injury on chronic kidney disease, present on admission, active Possibly due to diuretics, sCR baseline 1.10, -will monitor closely, avoid other renal toxins, adjust meds renally. -Lisinopril decreased from 40 to 20mg 10/09, stopped 10/11 minor Tinea pedis on Left foot, Start Clotrimazole oint bid chronic nasal congestion with postnasal drip, POA, -start NS nasal spray bid, added Flonase -Initiated montelukast 10 mg at bedtime -Patient advised to start [id number] second-generation antihistamine Non-insulin using diabetes mellitus, A1c 05/2016: 10.8, - Glucose uncontrolled with increased steroid dose -Continue Metformin 500mg TIDWM, - Lantus 45 units twice a day with addition of high-dose correction scale lispro with aim of titrating total 24-hour insulin requirements - Goal is to attempt BID dosing of lantus as pt is unable to dose herself at home, but daughter is able to do this morning and night. - Discussed with diabetes education today, they will coordinate a time and they can meet with the patient and her daughter. Leukocytosis, chronicity unknown, present on admission, - On admit: WBC 13.9; previous 05/22/2016 13.7 when on steroid therapy - Likely secondary to chronic steroid use - Continue to monitor for signs of infection Gout, chronic, presumed stable - Resume allopurinol 100 mg daily Coronary artery disease status post myocardial infarction, chronic, presumed stable - EKG on admission did not show any ischemic changes - Continue daily aspirin Normocytic, normochromic anemia, chronicity unknown, present on admission, presumed stable - On admit: Hb 10.6, Hct 34.6, MCV 93.8, MCH 28.7 - Continue to monitor; defer any additional workup to the outpatient setting Restless legs, chronic, presumed stable - May be secondary to underlying anemia - Continue home magnesium therapy Reported chronic sinus infection, status unknown, present on admission, presumed stable - Pt reports long standing h/o sinus infection, not currently on tx - Defer further workup to outpatient setting if needed Goals of care, ongoing - Patient discussed that during this hospitalization she would like to complete a POLST form - LOREN comm request placed to provide form to patient to review -complete signatures prior to discharge PRN: Bowel, fever, pain, nausea DVT: Hep q8 GI: PPI, home dose Diet: Heart/carb Code: DNR/DNI Disposition: Patient will likely require 1-2 more nights of inpatient management prior to discharge home. GI Prophylaxis: Proton Pump Inhibitor VTE Prophylaxis: Sub-Q Heparin (Unfractionated) VTE Mechanical Devices: Intermittant Pneumatic CD Resuscitation Status: DNR/DNI:Do Not Resuscitate/Intubate Attending Statement The patient was seen and examined together with Dr. Villarreal on 10/22/16 and I have added additional information to the note above. Lamonte Villarreal DO Oct 22, 2016 09:36 Radha Chiang DO Oct 24, 2016 18:45
[2016-10-22] MEDS: CLOTRIMAZOLE 1% TOPICAL SCH ×2 (12:39→21:34)
--- NOTE | 2016-10-22 18:36 | NUR ---
Activity/Glucose/poc Patient a/o x 3, no c/o pain or nausea, but has sob with exertion. Lungs decreased bilat. Patient up indep in room, steady gait and amb in [place] with gretchen johnson. VSS, tele A fib 110-140's. Cardiology consult done this afternoon, plan for npo after 0300 for Cardioversion at 1100. Written info on Cardioversion given to patient. Glucose 86,199,251. Patient voiced concerns about waking up hungry and nausea when she is npo. Spoke with MD and patient will get full dose Lantus and 0300 snack then npo. Info given to patient and patient agreeable.
[2016-10-23] VITALS (11 sets, daily range): BP systolic 101–132; BP diastolic 62–77; PULSE 61–109; RESP 18–25; O2SAT 93–96
[2016-10-23 03:31] LABS: INR 2.16 ratio
[2016-10-23] MEDS ORDERED: HYDROcodone-APAP 5-325 mg Tablet PO ONE (05:05)
--- NOTE | 2016-10-23 05:13 | NUR ---
Pain Pt c/o of pain in her neck 09/25. Administered Tylenol and not effective, placed ice pack and flynn HU. Orders for Hydrocodone given and awaiting verification from pharmacy. Pt has been NPO since 030 for cardioversion scheduled at 1130 today. BG 203 and 179. VSS and Tele Afib 80's to 140's.
--- NOTE | 2016-10-23 06:57 | CONS ---
[address] [address] CONSULTATION REPORT PATIENT: ROSAS FUENTES : 1945 MR#: [id number] ADMIT: 10/08/2016 JOB ID: [id number] DATE OF SERVICE: 10/22/2016 REQUESTING PHYSICIAN: Karl Villarreal MD REASON FOR EVALUATION: Atrial fibrillation. HISTORY: This patient is a 71-year-old woman with history of obesity hypoventilation syndrome, chronic respiratory failure with hypoxemia, restrictive lung disease, and obstructive sleep apnea. Her acid condenser is Dr. Mann. She has oxygen nasal cannula at home. She used 24/7 for the past two years. She has multiple hospitalizations for respiratory failure; in December 2015, January 2016, May 2016. She was admitted on October 08, 2016 with progressive shortness of breath. She developed new onset atrial fibrillation on October 15, 2016 with rapid ventricular response. She has been treated with subcutaneous Lovenox and warfarin for anticoagulation. She received metoprolol and diltiazem for rate control. Her atrial fibrillation rate has been better controlled for the past 24 hours. PAST MEDICAL HISTORY: 1. Morbid obesity. 2. Obesity hypoventilation syndrome. 3. Chronic respiratory failure with hypoxemia. 4. Obstructive sleep apnea. 5. Hypertension. 6. Diabetes for five years. PAST SURGICAL HISTORY: 1. Gallbladder surgery. 2. Tubal ligation. 3. Left knee surgery. CURRENT MEDICATIONS: Reviewed. ALLERGIES: No known allergies. SOCIAL HISTORY: She lives with her daughter and granddaughter. 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 She used to smoke less than a pack per day for over 40 years. She quit smoking in 2011. She denies alcohol. FAMILY HISTORY: Her mother had a stroke while undergoing a heart procedure at age 72. REVIEW OF SYSTEMS: All 10 systems are reviewed and pertinent for impaired eyesight, no problem swallowing, O2 through the CPAP machine, sleeping in a chair for the past 4-5 years, she is unsteady on her feet. She spends her time inside her house mostly sitting and walks a little. PHYSICAL EXAMINATION: Reveals a morbidly obese woman appearing in no acute distress. She is on oxygen nasal cannula. Temperature is 36.5. Blood pressure is 110/67. Pulse 79 irregularly irregular. Body weight is 107.2 kg. Head and face have normal configuration. Arcus senilis. Oral: Narrow oropharynx. Dry mucosa. Full mouth dentures. Neck supple. JVP was difficult to evaluate due to nuchal obesity. Chest: Diminished breath sounds. Heart: Distant heart sounds. No gallop or murmur appreciated. Abdomen: Obese, nontender. Extremities: 4+ edema. No clubbing or cyanosis. Skin is warm and dry. Neurology: Awake and oriented. LABORATORY DATA: Blood tests show hemoglobin 10.7, WBC 21.6, platelets 361. Sodium was 37, potassium 5.0, chloride 94, bicarb 26, BUN 61, creatinine 1.66. INR 2.07. IMPRESSION: 1. New onset atrial fibrillation, since October 16, 2016. 2. Morbid obesity with body mass index of 41.9 kg/m2. 3. Obesity hypoventilation syndrome. 4. Chronic respiratory failure with hypoxemia. 5. History of [id number] smoking. 6. Prerenal azotemia. 7. Dependent edema. 8. Unsteadiness. PLAN: I have personally reviewed her EKG and echocardiogram since 2011. There is no documented atrial fibrillation in the past. This patient should be on chronic anticoagulation. I believe that the cause of her tachycardia at this time is due to volume depletion as indicated by rising BUN and creatinine. Furosemide will be discontinued. I also discussed with the patient and her granddaughter regarding synchronous cardioversion. She understands and agrees to proceed with the procedure. This will be performed with anesthesiologist consultation in view of her morbid obesity and obstructive sleep apnea. FLAKO
[2016-10-23] MEDS: Insulin LISPRO 300 Unit/3 mL Inj SUBQ SCH ×4 (08:00→22:00)
[2016-10-23] MEDS: Insulin GLARgine 100 Unit/mL Syringe SUBQ SCH ×2 (08:30→22:52)
[2016-10-23] MEDS: Pantoprazole 40 mg ER24 Tablet PO SCH (09:24)
[2016-10-23] MEDS: MeTOProlol XL 50 mg ER24 Tablet PO SCH (09:25)
[2016-10-23] MEDS: predniSONE 20 mg Tablet PO SCH (09:26)
[2016-10-23] MEDS: Fluticasone-Salmererol 250-50 Inhaler INHALATION SCH ×2 (09:27→22:51)
[2016-10-23] MEDS: Fluticasone 0.05% 15 Spray/2 Gm 16 Gm Nasal Spray NASAL SCH ×2 (09:27→22:51)
[2016-10-23] MEDS: CLOTRIMAZOLE 1% TOPICAL SCH ×2 (09:32→22:51)
[2016-10-23] MEDS: Diltiazem CD 240 mg ER24 Capsule PO SCH ×2 (09:54→22:53)
[2016-10-23] MEDS ORDERED: Labetalol 5 mg/mL 20 mL Inj IV PRN (10:20)
[2016-10-23] MEDS ORDERED: Atropine 0.4 mg/mL Inj IVPUSH PRN (10:20)
[2016-10-23] MEDS ORDERED: EPHEDrine Sulfate 50 mg/mL Inj IVPUSH PRN (10:20)
[2016-10-23] MEDS ORDERED: Lactated Ringer's 1,000 ML IV SCH (10:20)
[2016-10-23] MEDS ORDERED: Phenylephrine 10,000 mCg/mL Inj IVPUSH PRN (10:20)
--- NOTE | 2016-10-23 10:33 | NUR ---
Patient admitted to [facility] for cardioversion with Marcia Iniguez. Left peripheral iv is patent, positive blood return obtained and saline well flushed with ns 10cc.Pt is in atrial fibrillation with HR 100"s to 130's.
--- NOTE | 2016-10-23 11:04 | OP ---
[address] [address] OPERATIVE REPORT PATIENT: ROSAS FUENTES : 1945 MR#: [id number] ADMIT: 10/08/2016 JOB ID: [id number] DATE OF SURGERY: 10/23/2016 PREOPERATIVE DIAGNOSIS(ES): Atrial fibrillation. POSTOPERATIVE DIAGNOSIS(ES): Atrial fibrillation. SURGEON: Kory Muñoz M.D. PROCEDURE: Synchronous cardioversion. METHOD: Synchronous cardioversion was performed in the [facility]. Dr. Padgett provided IV analgesia. It was delivered with biphasic 150 and 200 joules. The atrial fibrillation was successfully converted to normal sinus rhythm.
--- NOTE | 2016-10-23 11:15 | PCM.HPANE ---
Patient Data Surgeon Admitting Provider:Dragan Chang MD Attending Provider:Radha Chiang DO Primary Care Physician:Mitch Sow MD Other Provider: Reason for Visit Exacerbation Of Chf And Copd Ht/WT & BMI Height (Feet): 5 Height (Inches): 3.00 Weight (Kilograms): 108.500 Body Mass Index 40.59 Allergies Coded Allergies: No Known Allergies (Verified , 10/08/16) Past Anesthesia History Anesthesia History: Denies:: Abnormal Airway, Anesthesia Reactions, Difficult Intubation, Fam Anesthesia Reaction, Fam Malignant Hypertherm, Malignant Hyperthermia Diabetes History Hx Diabetes?: Yes Current Bedside Blood Glucose: 111 MRSA MRSA: Yes (right hand middle finger 6 years ago) Medications Active Scripts Prednisone (PredniSONE)10 Mg Uplepx42 Mg PO DAILY #100 TABLET Ref 0 20 mg daily for 7 days, 15 mg daily for 7 days, 10 mg daily for 7 days, continue 5 mg daily Prov:Crissy Cantrell MD 09/07/16 Prednisone (PredniSONE)20 Mg Snxpit69 Mg PO DAILY #100 TABLET Ref 0 Prov:Tarah Madrid MD 05/25/16 Ipratropium/Albuterol Sulfate (Iprat-Albut 0.5-3(2.5) mg/3 mL Inhalant Soln)3 Ml Ampul.neb3 Ml NEB Q4HWA #120 Ref 5 Prov:Jt Sinha DO 11/26/15 Magnesium Oxide 400 Mg Ytiulz093 Mg PO BID #60 TABLET Prov:Lauren Castro DO 08/11/[address] 40 Mg Tablet.dr40 Mg PO QAM Ref 0 05/21/16 Fluticasone Propionate (Flonase Allergy Relief)50 Mcg/Actuation [place].susp1 [place] NS BID PRN RHINITIS 05/21/16 Aspirin 81 Mg Njjcpd88 Mg PO QAM 05/21/16 Cholecalciferol (Vitamin D3) (Vitamin D3)2,000 Unit Capsule2,000 Unit PO QAM 12/24/15 Metformin (Glucophage)1,000 Mg Tablet1,000 Mg PO BIDWM 12/24/15 Cyanocobalamin (Vitamin B12)500 Mcg Tablet1,000 Mcg PO QAM 11/21/15 Lisinopril 40 Mg Dokwmg88 Mg PO QAM 08/10/15 Allopurinol 100 Mg Eyluvb699 Mg PO QAM 12/27/14 Furosemide 40 Mg Pmenmo28 Mg PO QAM 12/27/14 History History of ENT Problems?: Yes HEENT History: Positive for:: Cataracts (both eye surgery) Sinus Problem Denies:: Abnormal Airway Difficult Intubation Dysphagia Glaucoma Hearing Problem TMJ Denture Type: Full- Upper Full- Lower Teeth Condition: Missing Teeth Hx of Heart Problems?: Yes Cardiovascular History: Positive for:: Congestive Heart Failure Edema Heart Murmur Hypertension Irregular Heartbeat Denies:: AICD Abdominal Aortic Aneurism Atrial Fibrillation Cardiac Surgery Chest Pain Coronary Artery Disease Pacemaker Peripheral Vascular Rheumatic Fever Thrombophlebitis Valvular Heart Disease Hx of Respiratory Problem?: Yes Respiratory History: Positive for:: COPD Dyspnea Emphysema Pneumonia Denies:: Asthma Chest Surgery Hemoptysis Tuberculosis Hx Neurologic Problems?: Yes Neurological History: Positive for:: Dizziness Denies:: Alzheimer's Disease CVA Dementia Headaches Parkinson's Disease Seizures Hx of GI Problems?: Yes Hx of Problems?: No Genitourinary History: Denies:: HX of Hemodialysis Kidney Stones Urinary Tract Infection HX of Peritoneal Dialysis: No Female Hx: Denies:: Currently Endometriosis Pelvic Inflammatory Problems with Breasts? Skin History: Denies:: History Skin Disorders? Pressure Ulcers Hx Musculoskeletal Problems?: Yes Musculoskeletal History: Positive for:: Joint Replacement Denies:: Back Injury Degenerative Joint Fibromyalgia Musculoskeletal Trauma Myasthenia Gravis Osteoarthritis Rheumatoid Arthritis Systemic Lupus Hx of Psycho/Social Problems?: Yes Psycho Social History: Positive for:: Hx Depression Denies:: Anxiety Bipolar Disorder Suicide Attempt Hx Surgeries?: Yes (knee surgery, cholecystectomy) Hx Any Other Health Problems?: Yes Other History: Positive for:: Hospitalization Denies:: Cancer Thyroid Disease History Blood Transfusions: Positive for:: Accept Blood Products? Denies:: Blood Transfuse Reaction Blood Transfusions Hx Diabetes: YesBedside Blood Glucose: 111 Hx Alcohol Use: Yes (very rare, twice a year)Hx Substance Use: No Smoking Status: Former Smoker (comment approximately 2011; smoked for approximately 30 years at 1 pack per day) Have You Smoked inLast 12 mo: No Stop/Bang Treated for Sleep Apnea?: Yes Do You Have a CPAP Machine?: Yes S-Snoring: Do You Snore Loudly: Yes T-Tired: feel tired, fatigued: Yes O-Obsered: Observed not breath: Yes P-Blood Pressure: treated: Yes B- Body Mass Index > 35 kg/m2: Yes A- Age over 50: Yes N- Neck Large Circumference: Yes G- Gender Male: No DM Total Score: 7 DM Category 2: Yes Risk Assessment Category Category 1A: Patient has history of documented sleep apnea, and HAS NOT received any narcotic, sedative or anesthesia administration during this stay. Category 1B: Patient has history of documented sleep apnea, and HAS received any narcotic , sedative or anesthesia administration during this stay Category 2: Patient has SUSPECTED Obstructive Sleep Apnea, and HAS received any narcotic , sedative or anesthesia administration during this stay. Category 3: Patient has SUSPECTED Obstructive Sleep Apnea and HAS NOT received narcotic, sedative or anesthesia administration during this stay. Category 4: Outpatient in Procedural Areas with known sleep apnea or who screen positive for High Risk via the STOP/BANG questionnaire. Exam Exam Vital Signs Vital Signs Date Time Temp Pulse Resp B/P Pulse Ox O2 Delivery O2 Flow Rate FiO2 10/23/16 09:58 Supplement Oxygen 10/23/16 09:14 36.5 101 18 101/67 96 Nasal Cannula 3.00 10/23/16 03:05 36.3 101 20 124/62 94 Nasal Cannula 3.00 General Appearance: Alert, Oriented X3, Cooperative, Moderate Distress (SOB at baseline - has to sit up to breath) HEENT/AIRWAY: MP 2, Neck Movement (FROM), Mouth Opening (3 FBMO) Lungs: Diminished Heart: Other (irreg irreg) Meds/Labs/Diagnostics Admission Meds Current Medications Warfarin Sodium (Coumadin) 2.5 mg ONCE@17 ONCE PO Last administered on 18:00; Start 10/22/16 at 17:00; Stop 10/22/16 at 17:01; Status DC Acetaminophen/ Hydrocodone Bitart ([place] 5-325) 1 tablet ONCE ONCE PO Last administered on 10/23/16 05:23; Start 10/23/16 at 05:05; Stop 10/23/16 at 05:19; Status DC Bedside Blood Glucose: 111 Labs Test 10/07/16 22:03 10/08/16 00:04 10/08/16 05:00 10/09/16 06:10 Troponin T 0.010ug/L (0.0-0.011) Urine Color Straw (YELLOW) Urine Appearance Hazy (CLEAR,HAZY) Urine pH 7.0 (5.0-8.0) Urine Specific [place] 1.009 (1.003-1.035) Urine Protein Negativemg/dL (NEG,TRACE) Urine Glucose (UA) Negativemg/dL (NEGATIVE) Urine Ketones Negativemg/dL (NEGATIVE) Urine Occult Blood Negative (NEGATIVE) Urine Nitrite Negative (NEGATIVE) Urine Bilirubin Negative (NEGATIVE) Urine Urobilinogen Normalmg/dL (NORMAL) Urine Leukocyte Esterase Negative (NEGATIVE) Urine RBC 0-2/hpf (0-2) Urine WBC 0-5/hpf (0-5) Urine Epithelial Cells Few/hpf (NONE-MOD) Urine Crystals None seen (NONE SEEN) Urine Bacteria Few/hpf (NONE-FEW) Urine Hyaline Casts None/lpf (NONE) Urine Granular Casts None seen (NONE SEEN) Urine Waxy Casts None seen (NONE SEEN) Urine Red Blood Cell Casts None seen (NONE SEEN) Urine White Blood Cell Casts None seen (NONE SEEN) Urine Mucus None seen (None Seen) Urine Trichomonas None seen (NONE SEEN) Urine Yeast None (NONE SEEN) Urinalysis Comment None Urine Culture Reflexed Not indicated Procalcitonin 0.06ng/mL (0.00-0.08) Hemoglobin A1c 9.0% (4.8-5.6) Test 10/16/16 02:10 10/19/16 02:15 10/20/16 02:10 10/21/16 13:34 Neutrophils (%) (Auto) 81% (40-74) Lymphocytes (%) (Auto) 10% (14-46) Monocytes (%) (Auto) 5% (4-12) Eosinophils (%) (Auto) 1% (0-5) Basophils (%) (Auto) 0% (0-3) Band Neutrophils % 3% (1-5) Metamyelocytes % 1% (0-0) Hematology Comments Pro-B-Type Natriuretic Peptide 1630pg/mL (0-301) White Blood Count 21.6th/mm3 (3.8-10.1) Red Blood Count 3.66mil/mm3 (3.90-5.20) Mean Corpuscular Volume 91.8fL (81-100) Mean Corpuscular Hemoglobin 29.2pg (27.0-35.0) Mean Corpuscular Hemoglobin Concent 31.8% (32.0-37.0) Red Cell Distribution Width 15.5% (12.3-15.4) Platelet Count 361bil/L (150-400) Phosphorus Level 3.7mg/dL (2.5-4.9) Magnesium Level 2.3mg/dL (1.6-2.6) Hepatitis B Surface Antigen Negative (Negative) Hepatitis C Antibody <0.1s/co ratio (0.0-0.9) HIV (1&2) Ag and Ab, 4th Generation Non reactive (Non Reactive) HIV (1&2) Antibody Rapid Negative (Negative) Test 10/23/16 03:05 Hemoglobin 11.2g/dL (12.0-15.6) Hematocrit 34.7% (35.0-46.0) Prothrombin Time 23.5sec (8.1-12.5) Prothromb Time International Ratio 2.16ratio Sodium Level 133mEq/L (134-144) Potassium Level 5.0mEq/L (3.5-5.2) Chloride Level 93mEq/L (97-108) Carbon Dioxide Level 25mmol/L (18-29) Blood Urea Nitrogen 67mg/dL (8-27) Creatinine 2.10mg/dL (0.57-1.00) Estimat Glomerular Filtration Rate 33mL/min (>59) Glucose Level 186mg/dL (60-99) Calcium Level 8.6mg/dL (8.5-10.1) Total Bilirubin 0.2mg/dL (0.0-1.2) Aspartate Amino Transf (AST/SGOT) 109U/L (0-50) Alanine Aminotransferase (ALT/SGPT) 200U/L (0-32) Alkaline Phosphatase 183U/L (25-165) Total Protein 6.6g/dL (6.4-8.4) Albumin 3.5g/dL (3.4-5.0) Plan Impression Patient chart reviewed, patient interviewed and anesthestic plan with risks, benefits, and alternatives discussed, and informed consent obtained. NPO per Anesth. Guidelines: Yes ASA Physical Status: ASA4 Plus Emergency (Severe COPD/Emphysema. O2 dependent. Needs to sit up to breathe) Anesthetic Plan: GA, MAC Bene/Risks/Altern/Consents: Yes HP Complete Prior to Induction: Yes Matthieu Padgett MD Oct 23, 2016 10:19
--- NOTE | 2016-10-23 11:16 | PCM.ANEP1 ---
Post Anesthesia PACU Phase 1 Assessment Vital Signs Vital Signs Date Time Temp Pulse Resp B/P Pulse Ox O2 Delivery O2 Flow Rate FiO2 10/23/16 11:10 69 25 118/64 95 Nasal Cannula 3.00 10/23/16 11:00 70 25 128/67 96 Nasal Cannula 3.00 10/23/16 10:55 73 18 129/70 94 Nasal Cannula 3.00 10/23/16 10:31 109 112/65 93 Nasal Cannula 3.00 10/23/16 09:58 Supplement Oxygen 10/23/16 09:14 36.5 101 18 101/67 96 Nasal Cannula 3.00 10/23/16 08:00 94 Anesthetic Administered: GA, MAC Level of Alertness: Awake, talking NEWBY's with Equal Strength: Yes Pain: No Pain Scale Score: 3 (baseline) Nausea or Vomiting: No CV Function & Hydration Stable: Yes Airway Device: na Oxygen Delivery: Nasal Cannula Lungs: Diminished Dermatome Level: Full Sensation PACU Phase 2 Assessment Complications: No Follow up Care: N/A Patient Instructions Provided: N/A Matthieu Padgett MD Oct 23, 2016 11:16
--- NOTE | 2016-10-23 12:15 | PCM.PNMED ---
Subjective Date of Service Oct 23, 2016 Subjective Subjective: Discussed with the patient the cardioversion procedure and all that this entails. Cardioversion currently scheduled for this afternoon, patient agrees to continue as planned. Heart rate continues to be elevated. Events Overnight: No acute events overnight. ROS: Denies fever/chills, nausea/vomiting, headache, weakness, abdominal pain, chest pain, shortness of breath, increased swelling in hands or feet. Exam Vital Signs Vital Sign - Last Date Time Temp Pulse Resp B/P Pulse Ox O2 Delivery O2 Flow Rate FiO2 10/23/16 11:16 Nasal Cannula 10/23/16 11:10 69 25 118/64 95 3.00 10/23/16 09:14 36.5 Intake and Output 10/22/16 10/22/16 10/23/16 Cumulative From/Thru 15:00 23:00 07:00 10/07/16 19:59 - 10/23/16 06:24 Intake Total 800 ml 47848 ml Output Total 300 ml 63994 ml Balance 500 ml -5481 ml Intake Oral 800 ml 68253 ml IV Total 692 ml Output Urine Total 300 ml 55437 ml # Voids 2 # Bowel Movements 4 Exam General: No acute distress, well-developed, obese Head: Normocephalic, atraumatic. External ears without defect. Eyes: Pupils equal, round, and reactive to light and accommodation. Anicteric sclerae, moist conjunctivae. Neck: Normal range of motion, no lymphadenopathy noted Cardiovascular: Irregularly irregular rhythm mild systolic murmur, rubs, or gallops appreciated Pulmonary: Clear to auscultation bilaterally. Normal respiratory effort with no use of accessory muscles. Abdomen: Bowel tones present. Soft, obese, nontender, nondistended. Extremities: No clubbing, cyanosis, edema Skin: Normal temperature, turgor, and texture; no rash, ulcers, or subcutaneous nodules appreciated. Neurological: Cranial nerves grossly intact. Reflexes, coordination, and sensory function within normal limits. Normal muscle strength, tone, and bulk. Psychiatric: Normal mood and affect. Alert and oriented to person, place, and time IVs and Medications Medications Reviewed: Medications were reviewed in detail Lab and Diagnostics Result Diagram: 10/23/16 0305 10/23/16 0305 X-Rays, CTs and MRIs X-RAY CHEST ONE VIEW, PORTABLE IMPRESSION: Persistent mild congestive heart failure. Approved by: Earl Gabriel M.D. on 10/11/2016 at 12:53 Assessment & Plan Ms. Pettit is a pleasant 71-year-old female with a history of COPD, chronic hypoxemic respiratory failure, obstructive sleep apnea, non-insulin using diabetes, and preserved ejection fraction heart failure, presented to the emergency department with a progressively worsening shortness of breath with exertion and intermittent nonproductive cough, without any associated fever, or chills. She was admitted for evaluation and treatment of suspected exacerbation of preserved ejection fraction heart failure. New onset atrial fibrillation, not present on arrival, stable As this was new onset in the hospital she was initially considered to have paroxysmal atrial fibrillation, however the patient remained in this rhythm for the subsequent 5 days without converting to sinus. As the patient has continued to require higher doses of diltiazem and metoprolol for rate control, the possibility of cardioversion became more favorable Patient was cardioverted successfully on 10/23. Patient is currently in sinus rhythm with heart rate in the 70s and systolic blood pressures in the mid 20s - Per recommendations of cardiology continue long-acting diltiazem at 240 mg BID , continue to monitor vital signs closely. - Discontinue metoprolol - CHADSVASC score 6 - 10% chance per year of thrombotic event - Continue warfarin, we will need to ensure the patient remains in sinus rhythm previous to discontinuing warfarin therapy - Last dose of Lovenox given on 10/22 Acute on chronic hypoxemic hypercarbic respiratory failure, POA, resolving Likely multifactorial: initially more suspicion for acute decompensated HFpEF, however COPD exacerbation could not be excluded Echo November 2015: EF 65-70, mildly calcified aortic valve. - Repeat TTE showed grossly unchanged. - DC Lasix due to LETICIA - Continue telemetry - O2 supplement target <95% - Continue prednisone at 20 mg Acute exacerbation of chronic obstructive pulmonary disease, present on admission, resolved - duonebs q4h prn - decrease prednisone to 30mg daily will require a prolonged taper at discharge - Advair 2puffs bid 10/11 - pt needs close FU with with pulmonology appointment scheduled in October Acute kidney injury on chronic kidney disease, present on admission, active Likely due to diuretics, possibly due to metformin use, sCR baseline 1.10, - Creatinine continuing to increase over the last several days, Lasix discontinued -will monitor closely, avoid other renal toxins, adjust meds renally. -Lisinopril decreased from 40 to 20mg 10/09, stopped 10/11 Minor Tinea pedis on Left foot, -Continue Clotrimazole oint bid Chronic nasal congestion with postnasal drip, POA, -start NS nasal spray bid, added Flonase -Initiated montelukast 10 mg at bedtime -Patient advised to start [id number] second-generation antihistamine Non-insulin using diabetes mellitus, A1c 05/2016: 10.8, - Glucose uncontrolled with increased steroid dose - Discontinue Metformin 500mg TID with meals - Lantus 45 units twice a day with no additional high-dose correction scale lispro - Goal is to attempt BID dosing of lantus as pt is unable to dose herself at home, but daughter is able to do this morning and night. Currently doing well with this goal patient will remain on 45units BID - Discussed with diabetes education today, they will coordinate a time and they can meet with the patient and her daughter. Leukocytosis, chronicity unknown, present on admission, - On admit: WBC 13.9; previous 05/22/2016 13.7 when on steroid therapy - Likely secondary to chronic steroid use - Continue to monitor for signs of infection Gout, chronic, presumed stable - Resume allopurinol 100 mg daily Coronary artery disease status post myocardial infarction, chronic, presumed stable - EKG on admission did not show any ischemic changes - Continue daily aspirin Normocytic, normochromic anemia, chronicity unknown, present on admission, presumed stable - On admit: Hb 10.6, Hct 34.6, MCV 93.8, MCH 28.7 - Continue to monitor Restless legs, chronic, presumed stable - May be secondary to underlying anemia - Continue home magnesium therapy Reported chronic sinus infection, status unknown, present on admission, improved - Pt reports long standing h/o sinus infection, not currently on tx - Patient states improvement with humidified oxygen. Goals of care, ongoing - Patient discussed that during this hospitalization she would like to complete a POLST form - LOREN comm request placed to provide form to patient to review -complete signatures prior to discharge PRN: Bowel, fever, pain, nausea DVT: Hep q8 GI: PPI, home dose Diet: Heart/carb Code: DNR/DNI Disposition: Patient will require 24 hours of monitoring in sinus rhythm prior to discharge home. GI Prophylaxis: Proton Pump Inhibitor VTE Prophylaxis: Sub-Q Heparin (Unfractionated) VTE Mechanical Devices: Intermittant Pneumatic CD Resuscitation Status: DNR/DNI:Do Not Resuscitate/Intubate Attending Statement The patient was seen and examined together with Dr. Villarreal on 10/23/16 and I have added additional information to the note above. Lamonte Villarreal DO Oct 23, 2016 12:14 Radha Chiang DO Oct 24, 2016 13:06
--- NOTE | 2016-10-23 15:53 | NUR ---
Social Work: Readiness for Discharge/Multidisciplinary Rounds D: Pt discussed in multidisciplinary rounds; the patient is still not medically stable for discharge. Patient still intends to discharge home with [facility] for RN and PT care. SYSTEMS PROGRAM MANAGER met with the patient and daughter at bedside. Pt's daughter agrees with the home plan and states that the patient also has 99 hours of [facility] caregiving a month. The patient's [facility] telephonic case manager is Ariella Ceballos. Pt's daughter is wondering how to initiate more hours of caregiving for the patient. SYSTEMS PROGRAM MANAGER instructed her to contact Ariella to request this. SYSTEMS PROGRAM MANAGER requested Lead Nurse fax clinicals to [facility] on this patient as we were not aware that she had in-home caregiving. A: Pt who lives at home, alone with [facility] caregiving. P: Anticipate pt to discharge home with resumed [facility] caregiving and [facility] for RN and PT once medically stable; SYSTEMS PROGRAM MANAGER to continue to follow. KARLEE Tony
--- NOTE | 2016-10-23 16:27 | NUR ---
NUTRITION EDUCATION Pt and pt daughter provided education on vitamin K foods in relation to anticoagulation therapy. Additionally, reviewed diabetic diet basics and MOC RN provided insulin pen instruction (daughter will be providing home care). Per RN pt on glargine 45u BID. At this time unclear if pt to discharge home with pen vs.vial; will continue on humalog? and pt concerned re insurance coverage of pen.Left Message with case planner re insulin coverage and MD re type of insulin pt to be discharged home on, awaiting call back; alerted pt FINA Buchanan of pt concerns. Will continue to follow.
--- NOTE | 2016-10-23 16:34 | NUR ---
NUTRITION ASSESSMENT: ASSESS: 71YO F admit with CHF exacerbation, new onset afib, acute on chronic kidney disease. Pt is blind, daughter providing caregiving at home, requesting insulin instruction. Pt reports confusion over type of insulin she will be discharged home with and insurance coverage. PMHX: Dabetes,CKD,CHF DIET: Diabetic. PO 100% LABS: Alb 3.5, Na 133, Cr 2.10 MEDS: Glargine 45U BID, Metformin, Humalog? GI: 1 BM 10/21 WEIGHT: 108.5kg, admit wt:100kg: BMI: 42.4 EST.NEEDS: OBESITY Kcal: 5403-4894 kcal, Pro: 60-80g NUTRITION DIAGNOSIS: (1) No diagnosis at this time. INTERVENTION: (1) Education provided re high vitamin K/Coumadin interaction. (2) DM diet education provided to pt/daughter by GABY, [facility] RN provided insulin pen instruction. MD/sound installation worker paged re insurance/insulin questions,awaiting call back. MONITOR/EVALUATE: F/U per low risk, f/u re additional instruction as needed.
--- NOTE | 2016-10-23 18:39 | NUR ---
Sinus Rhythm Pt remains in SR since cardioversion at 1030. Pt states she is feeling better overall today and is looking forward to going home soon.
[2016-10-24 02:53] VITALS: PULSE 60
[2016-10-24 03:17] LABS: INR 2.47 ratio
[2016-10-24 03:27] VITALS: BP 110/64; PULSE 66; RESP 20; O2SAT 96
--- NOTE | 2016-10-24 05:11 | NUR ---
Cardiac/Pain Pt remained in SR for NOC shift and stating she was feeling a bit better. Pt up independently in room and tolerating well. Pt did c/o of back pain 07/26 and MD notified as pt kidney and liver function is elevated. MD ordered 2mg Morphine and pt declined. VSS and Tele SB/R 50's to 60's.
[2016-10-24 07:44] VITALS: PULSE 68
[2016-10-24] MEDS: Insulin LISPRO 300 Unit/3 mL Inj SUBQ SCH ×2 (08:00→11:36)
[2016-10-24] MEDS ORDERED: predniSONE 20 mg Tablet PO SCH (08:30)
[2016-10-24 08:34] VITALS: BP 123/80; PULSE 65; RESP 16; O2SAT 95
[2016-10-24 08:42] VITALS: O2SAT 93
[2016-10-24] MEDS: Insulin GLARgine 100 Unit/mL Syringe SUBQ SCH (08:54)
[2016-10-24] MEDS: Diltiazem CD 240 mg ER24 Capsule PO SCH (08:55)
[2016-10-24] MEDS: Pantoprazole 40 mg ER24 Tablet PO SCH (08:55)
[2016-10-24] MEDS: Fluticasone 0.05% 15 Spray/2 Gm 16 Gm Nasal Spray NASAL SCH (08:56)
[2016-10-24] MEDS: CLOTRIMAZOLE 1% TOPICAL SCH (08:56)
--- NOTE | 2016-10-24 11:15 | PCM.PHAPRO ---
Progress Warfarin WARFARIN Indication: AFIB Home dose NA Recent dosing: Date 1-Sep 2-Sep 3-Sep 4-Sep 5-Sep 6-Sep 7-Sep 8-Sep 9-Sep INR 0.89 0.92 0.95 1.04 1.44 2.07 2.16 2.47 INR change 0.03 0.03 0.09 0.4 0.63 0.09 0.31 Warf Dose 5 5MG 7.5MG 7.5 MG 7.5 2.5 5 4 a/ Settling in on ~4mg/day p/ Follow Italo Coyle Pharm D Oct 24, 2016 11:15
--- NOTE | 2016-10-24 11:21 | NUR ---
Faxed clinicals to Ariella Ceballos [facility] CM per CIRCULATION REPRESENTATIVE
[2016-10-24] MEDS: Fluticasone-Salmererol 250-50 Inhaler INHALATION SCH (11:27)
[2016-10-24] MEDS ORDERED: PRED-508 PO (11:48)
[2016-10-24] MEDS ORDERED: IPRA3AMP NEB (11:48)
[2016-10-24] MEDS ORDERED: nebulizer (11:48)
[2016-10-24 12:07] VITALS: BP 121/68; PULSE 66; RESP 20; O2SAT 95
[2016-10-24] MEDS ORDERED: DILT240C85 PO (13:11)
[2016-10-24] MEDS ORDERED: INSU100V7 SUBQ (13:11)
[2016-10-24] MEDS ORDERED: ADV250INH INHALATION (13:11)
[2016-10-24] MEDS ORDERED: CLOT30SO TOPICAL (13:11)
[2016-10-24] MEDS ORDERED: Warfarin per Pharmacist ORAL (13:11)
[2016-10-24] MEDS ORDERED: INSU100V4 SUBQ (13:18)
--- NOTE | 2016-10-24 13:26 | PCM.DIMED ---
Lamonte Villarreal DO 10/24/16 1149: Discharge Instructions Date of Service Oct 24, 2016 Dates of Hospitalization Oct 08, 2016 at 01:41 Discharge Diagnosis Discharge Diagnosis New onset atrial fibrillation Acute on chronic hypoxemic hypercarbic respiratory failure acute exacerbation of chronic obstructive pulmonary disease Acute kidney injury on chronic kidney disease minor Tinea pedis on Left foot, chronic nasal congestion with postnasal drip Non-insulin using diabetes mellitus Leukocytosis Gout Coronary artery disease status post myocardial infarction Normocytic, normochromic anemia Restless legs chronic sinus infection Medication Instructions Additional med instructions Continue taking all medications as previously prescribed except for the following changes: Use diltiazem 240 mg twice a day Advair one puff twice per day Levemir 45 units twice per day Prednisone 20 mg daily for 3 days, then 10 mg daily for 3 days Warfarin 4 mg daily unless adjusted by INR clinic (via home health) Use clotrimazole cream as needed Please change Furosemide from 40mg per day to 20mg per day Please discontinue Lisinopril Metformin Other previous dosings of prednisone Test Results Test Results Chest x-rays obtained in the hospital during this visit show pulmonary edema which has since resolved. Diet Discharge Diet: No restrictions Activity Discharge Activity: No restrictions Call your provider Call your provider for: Fever or Chills, Shortness of breath, Bleeding, Chest pain, Vomitting, Excessive diarrhea, Weakness (unilateral) Patient Instructions Patient Instructions Please take medications as described above. Continue home activities as previously tolerated. Follow-up plan Please follow-up with your primary care doctor, we would also like you to follow -up with Dr. Cai from cardiology. Also, please make sure to attend your visit with Dr. Mann from pulmonology Follow-up Provider: Mitch Sow MD Follow-up with PCP in: 1 week Provider: Kory Muñoz MD Follow-up in: 3 weeks Radha Chiang DO 10/24/16 1826: Discharge Instructions Attending's Statement The patient was seen and examined together with Dr. Villarreal on 10/24/16 and I agree with the history, exam and plan as outlined in the note above. Lamonte Villarreal DO Oct 24, 2016 11:49 Radha Chiang DO Oct 24, 2016 18:26
[2016-10-24] MEDS ORDERED: FURO-129 PO (13:58)
[2016-10-24] MEDS ORDERED: WARF4TAB6 PO (13:59)
--- NOTE | 2016-10-24 15:45 | NUR ---
Discharge 720 - Dr. Chiang called and requested that her O2 be turned down as her SpO2 readings were 96% on 2L of O2. She usually has 3L of home O2. 07 - Spoke to the patient about her O2 and needing to turn her it down per Dr. Chiang and her SpO2 readings. She wanted to wait until her vitals her were taken before her O2 was turned down. Checked her vitals. On 2L of O2 (SpO2 96%). Turned her O2 down to 1L (SpO2 of 93%). 944 - Discussed her care with Dr. Chiang and the rest of the multidisciplinary care team during morning rounds. Informed them that her liver and kidney functions were looking better on her labs. Also informed Dr. Chiang of her tolerating 1L of O2. The plan was she would be able to discharge today with Home Health and Physical Therapy services. Her and her daughter also needed insulin administration education. 1300 - Paged Dr. Villarreal about her discharge orders as they had not finished yet. Noted that no insulin or fungal medication had been ordered yet. He said he was still working on placing all the orders. Also, informed him that the patient was requesting Advair for discharge. He said he would check her insurance and order it if it was accepted. 1445 - Paged Dr. Villarreal again as he said he finished the discharge instructions, but they hadn't been finalized yet. He finalized them. Also, asked him to clarify her insulin administration instructions so the daughter and patient could be informed. The instructions were included in the discharge instructions by this nurse. 1545 - She discharged as this time. Before discharge her IV and telemetry were discontinued intact. Provided diabetic/insulin education to the patient and her daughter. Answered their questions. Took her belongings. Was placed on 3L of O2 for the trip home per the patient request and Dr. Chiang's permission. She and her daughter thanked staff for the excellent care she received here. The CIVIL DESIGN TECHNICIAN took her to the car in a wheelchair.
--- NOTE | 2016-10-24 16:50 | PCM.DC.MED ---
Discharge Summary Date of Service Oct 24, 2016 Dates of Hospitalization Date of Hospital Admission Oct 08, 2016 at 01:41 Date of Discharge: Oct 24, 2016 Providers: Admitting Physician: Dragan Chang MD Primary Care Physician: Mitch Sow MD Attending Physician: Radha Chiang DO Diagnosis at Time of Discharge Diagnosis at Time of Discharge New onset atrial fibrillation Acute on chronic hypoxemic hypercarbic respiratory failure acute exacerbation of chronic obstructive pulmonary disease Acute kidney injury on chronic kidney disease minor Tinea pedis on Left foot, chronic nasal congestion with postnasal drip Non-insulin using diabetes mellitus Leukocytosis Gout Coronary artery disease status post myocardial infarction Normocytic, normochromic anemia Restless legs chronic sinus infection Consultations Cardiology: Dr. Ayala Mckee XRay, CTs & MRIs X-RAY CHEST ONE VIEW, PORTABLE IMPRESSION: Persistent mild congestive heart failure. Approved by: Earl Gabriel M.D. on 10/11/2016 at 12:53 X-RAY CHEST, TWO VIEWS IMPRESSION: Small effusions redemonstrated and bibasilar airspace opacities consistent with compressive atelectasis versus pneumonia. Correlate clinically. Dictated by: Alexey Hargrove RRA Interpreted: Anabella Rivera MD on 10/08/2016 at 12:07 Approved by: Anabella Rivera MD, PhD on 10/08/2016 at 12:25 X-RAY CHEST ONE VIEW, PORTABLE IMPRESSION: Persistent mild congestive heart failure. Dictated by: Earl Gabriel M.D. on 10/11/2016 at 12:48 Approved by: Earl Gabriel M.D. on 10/11/2016 at 12:53 Cardiac Echo Impression Echocardiogram Interpretation Summary Technically difficult study 1. Grossly normal left ventricular size and systolic function. 2. The right ventricle is not well visualized to estimate size. With limited views, the RV function is probably normal. Unable to estimate RVSP 3. None of the valve were optimally visualized. Compared to the previous study (which was also technically difficult), no appreciable change Reading Physician:03:53 PM Invasive Procedures PROCEDURE: Synchronous cardioversion. METHOD: Synchronous cardioversion was performed in the [facility]. Dr. Padgett provided IV analgesia. It was delivered with biphasic 150 and 200 joules. The atrial fibrillation was successfully converted to normal sinus rhythm. Kory Muñoz MD 10/23/16 1044 Brief History Ms. Pettit is a pleasant 71-year-old female with a history of COPD, chronic hypoxemic respiratory failure, obstructive sleep apnea, non-insulin using diabetes, and preserved ejection fraction heart failure, presented to the emergency department with a progressively worsening shortness of breath with exertion and intermittent nonproductive cough, In the ED, T 37.1, P 93, RR 28, BP 173/78, 93% on 3 L nasal cannula; initial labs revealed white count 13.9 with 72.3% neutrophils, hemoglobin 10.6, hematocrit 34.6, platelets 312; sodium 137, potassium 4.8, creatinine 1.10, glucose 137, troponin negative, proBNP 173.9; UA not indicative of infection with negative nitrites, leukocyte esterase , and few bacteria; initial imaging included CXR suggestive of fluid overload with bibasilar atelectasis or scarring; EKG revealed sinus rhythm with rate 84, QTC 470, with evidence of a right bundle branch block and PACs, no acute ST-T changes noted; initial therapies included furosemide 80 mg IV push 1, albuterol nebulizers, and DuoNeb nebulizer. The patient continued on Lasix as well as breathing treatments based on the diagnoses of CHF in combination with COPD. During her stay her dose of prednisone was increased to 60 mg per day for COPD coverage. The patient continued to improve clinically however on 10/16 the patient developed atrial fibrillation and was transferred to [facility] for further monitoring and treatment. The patient was initially started on Lovenox and warfarin which continued during the patient's stay. Lovenox was discontinued 5 days after initiation. The patient was started on diltiazem CD at 180 mg BID. Despite this dosing the patient remained in A. fib with RVR, during her stay the diltiazem dosage was eventually increased to 240 mg BID with an additional 50 mg of metoprolol succinate added for rate control. The patient remained in atrial fibrillation despite pharmacologic interventions, without reverting to normal sinus rhythm at any point in time. At this point cardiology was consulted and the patient was subsequently cardioverted. This was successful and the patient remained in normal sinus rhythm for 24 hours prior to discharge. The patient will continue to use 240 mg twice a day diltiazem however she will not be using metoprolol so as not to cause any further bradycardia. The patient's lisinopril was also discontinued at this time secondary to acute kidney injury. The patient's acute kidney injury has since resolved however her metformin and her lisinopril have been discontinued but the patient will continue using her Lasix daily. The patient has been encouraged to follow-up with her PCP to have her creatinine reassessed to ensure that the Lasix is not causing her creatinine to increase in her acute kidney injury to come back. Due to the increase in prednisone required for COPD exacerbation, the patient's blood sugars became uncontrolled. She had previous been taking 20 units of Levemir at night. Due to increase in blood glucose it became necessary to initiate mealtime doses for further control, however the patient stated that she was unable to deliver these doses herself at home due to shaky hands and poor vision. She states that her daughter was available at home and is able to give her doses of insulin in the morning and at night between work shifts. For this reason the patient was titrated to a stable morning and night dose of long- acting insulin for better control. Patient was maintained on a dose of 45 units twice a day. With heart rate, blood glucose, BUN and creatinine levels, liver enzymes all under control the patient was able to discharge home successfully. Hospital Course Ms. Pettit is a pleasant 71-year-old female with a history of COPD, chronic hypoxemic respiratory failure, obstructive sleep apnea, non-insulin using diabetes, and preserved ejection fraction heart failure, presented to the emergency department with a progressively worsening shortness of breath with exertion and intermittent nonproductive cough, without any associated fever, or chills. She was admitted for evaluation and treatment of suspected exacerbation of preserved ejection fraction heart failure. Due to the patient's decreased mobility and inability to attend multiple clinic visits, upon discharge home the patient will require follow-up from home health for nursing care as well as follow-up on INR levels. This should be coordinated in conjunction with the INR clinic. I would expect that the patient should be seen every 2-3 days for INR check for the first several weeks to ensure levels are appropriate. We would also like home health nursing to assist the patient in evaluating blood sugar levels especially due to her long taper off of prednisone as this will make it very difficult to control. In addition, home health physical therapy would be of use to this patient especially due to her long stay in the hospital. New onset atrial fibrillation, not present on arrival, stable As this was new onset in the hospital she was initially considered to have paroxysmal atrial fibrillation, however the patient remained in this rhythm for the subsequent 5 days without converting to sinus. As the patient has continued to require higher doses of diltiazem and metoprolol for rate control, the possibility of cardioversion became more favorable Patient was cardioverted successfully on 10/23. Patient is currently in sinus rhythm with heart rate in the 70s and systolic blood pressures in the mid 20s - Per recommendations of cardiology continue long-acting diltiazem at 240 mg BID , continue to monitor vital signs closely. - Discontinue metoprolol - CHADSVASC score 6 - 10% chance per year of thrombotic event - Continue warfarin, we will need to ensure the patient remains in sinus rhythm previous to discontinuing warfarin therapy - Last dose of Lovenox given on 10/22 Acute on chronic hypoxemic hypercarbic respiratory failure, POA, resolving Likely multifactorial: initially more suspicion for acute decompensated HFpEF, however COPD exacerbation could not be excluded Echo November 2015: EF 65-70, mildly calcified aortic valve. - Repeat TTE showed grossly unchanged. - Patient discharged on 20 mg Lasix for home use with the warning to continue to be aware of fluid status - O2 supplement target <95% - Continue prednisone at 20 mg Acute exacerbation of chronic obstructive pulmonary disease, present on admission, resolved - duonebs q4h prn - prednisone to 20mg daily for 3 days, 10 mg for 3 days, - Advair 2puffs bid 10/11 - pt needs close FU with with pulmonology appointment scheduled in October Acute kidney injury on chronic kidney disease, present on admission, active Likely due to diuretics, possibly due to metformin use, sCR baseline 1.10, - Creatinine trending appropriately, Lasix reinitiated at 20 mg daily -will monitor closely, avoid other renal toxins, adjust meds renally. -Lisinopril decreased from 40 to 20mg 10/09, stopped 10/11 Minor Tinea pedis on Left foot, -Continue Clotrimazole oint bid Chronic nasal congestion with postnasal drip, POA, -start NS nasal spray bid, added Flonase -Initiated montelukast 10 mg at bedtime -Patient advised to start [id number] second-generation antihistamine Non-insulin using diabetes mellitus, A1c 05/2016: 10.8, - Glucose uncontrolled with increased steroid dose - Discontinue Metformin 500mg TID with meals - Lantus 45 units twice a day with no additional high-dose correction scale lispro - BID dosing of lantus as pt is unable to dose herself at home, but daughter is able to do this morning and night. Currently doing well with this goal patient will remain on 45units BID - Diabetes education was able to coordinate a time to meet with the patient and her daughter prior to discharge. Leukocytosis, chronicity unknown, present on admission, - On admit: WBC 13.9; previous 05/22/2016 13.7 when on steroid therapy - Likely secondary to chronic steroid use - Continue to monitor for signs of infection Gout, chronic, presumed stable - Resume allopurinol 100 mg daily Coronary artery disease status post myocardial infarction, chronic, presumed stable - EKG on admission did not show any ischemic changes - Continue daily aspirin Normocytic, normochromic anemia, chronicity unknown, present on admission, presumed stable - On admit: Hb 10.6, Hct 34.6, MCV 93.8, MCH 28.7 - Continue to monitor Restless legs, chronic, presumed stable - May be secondary to underlying anemia - Continue home magnesium therapy Reported chronic sinus infection, status unknown, present on admission, improved - Pt reports long standing h/o sinus infection, not currently on tx - Patient reports improvement with humidified oxygen. Exam Vital Signs (Last) Date Time Temp Pulse Resp B/P Pulse Ox O2 Delivery O2 Flow Rate FiO2 10/24/16 12:07 36.5 66 20 121/68 95 Nasal Cannula 1.00 Exam General: No acute distress, well-developed, obese Head: Normocephalic, atraumatic. External ears without defect. Eyes: Pupils equal, round, and reactive to light and accommodation. Anicteric sclerae, moist conjunctivae. Neck: Normal range of motion, no lymphadenopathy noted Cardiovascular: Regular rate and rhythm mild systolic murmur, no rubs or gallops appreciated Pulmonary: Clear to auscultation bilaterally. Normal respiratory effort with no use of accessory muscles. Abdomen: Bowel tones present. Soft, nontender, nondistended. Extremities: No clubbing, cyanosis, edema Skin: Normal temperature, turgor, and texture; no rash, ulcers, or subcutaneous nodules appreciated. Neurological: Cranial nerves grossly intact. Reflexes, coordination, and sensory function within normal limits. Normal muscle strength, tone, and bulk. Psychiatric: Normal mood and affect. Alert and oriented to person, place, and time Test 10/07/16 22:03 10/08/16 00:04 10/08/16 05:00 10/09/16 06:10 Troponin T 0.010ug/L (0.0-0.011) Urine Color Straw (YELLOW) Urine Appearance Hazy (CLEAR,HAZY) Urine pH 7.0 (5.0-8.0) Urine Specific [employer] 1.009 (1.003-1.035) Urine Protein Negativemg/dL (NEG,TRACE) Urine Glucose (UA) Negativemg/dL (NEGATIVE) Urine Ketones Negativemg/dL (NEGATIVE) Urine Occult Blood Negative (NEGATIVE) Urine Nitrite Negative (NEGATIVE) Urine Bilirubin Negative (NEGATIVE) Urine Urobilinogen Normalmg/dL (NORMAL) Urine Leukocyte Esterase Negative (NEGATIVE) Urine RBC 0-2/hpf (0-2) Urine WBC 0-5/hpf (0-5) Urine Epithelial Cells Few/hpf (NONE-MOD) Urine Crystals None seen (NONE SEEN) Urine Bacteria Few/hpf (NONE-FEW) Urine Hyaline Casts None/lpf (NONE) Urine Granular Casts None seen (NONE SEEN) Urine Waxy Casts None seen (NONE SEEN) Urine Red Blood Cell Casts None seen (NONE SEEN) Urine White Blood Cell Casts None seen (NONE SEEN) Urine Mucus None seen (None Seen) Urine Trichomonas None seen (NONE SEEN) Urine Yeast None (NONE SEEN) Urinalysis Comment None Urine Culture Reflexed Not indicated Procalcitonin 0.06ng/mL (0.00-0.08) Hemoglobin A1c 9.0% (4.8-5.6) Test 10/16/16 02:10 10/19/16 02:15 10/20/16 02:10 10/21/16 13:34 Neutrophils (%) (Auto) 81% (40-74) Lymphocytes (%) (Auto) 10% (14-46) Monocytes (%) (Auto) 5% (4-12) Eosinophils (%) (Auto) 1% (0-5) Basophils (%) (Auto) 0% (0-3) Band Neutrophils % 3% (1-5) Metamyelocytes % 1% (0-0) Hematology Comments Pro-B-Type Natriuretic Peptide 1630pg/mL (0-301) White Blood Count 21.6th/mm3 (3.8-10.1) Red Blood Count 3.66mil/mm3 (3.90-5.20) Mean Corpuscular Volume 91.8fL (81-100) Mean Corpuscular Hemoglobin 29.2pg (27.0-35.0) Mean Corpuscular Hemoglobin Concent 31.8% (32.0-37.0) Red Cell Distribution Width 15.5% (12.3-15.4) Platelet Count 361bil/L (150-400) Phosphorus Level 3.7mg/dL (2.5-4.9) Magnesium Level 2.3mg/dL (1.6-2.6) Hepatitis B Surface Antigen Negative (Negative) Hepatitis C Antibody <0.1s/co ratio (0.0-0.9) HIV (1&2) Ag and Ab, 4th Generation Non reactive (Non Reactive) HIV (1&2) Antibody Rapid Negative (Negative) Test 10/24/16 02:05 10/24/16 06:49 Prothrombin Time 26.9sec (8.1-12.5) Prothromb Time International Ratio 2.47ratio Hemoglobin 10.7g/dL (12.0-15.6) Hematocrit 34.0% (35.0-46.0) Sodium Level 138mEq/L (134-144) Potassium Level 5.0mEq/L (3.5-5.2) Chloride Level 96mEq/L (97-108) Carbon Dioxide Level 28mmol/L (18-29) Blood Urea Nitrogen 60mg/dL (8-27) Creatinine 1.33mg/dL (0.57-1.00) Estimat Glomerular Filtration Rate 56mL/min (>59) Glucose Level 143mg/dL (60-99) Calcium Level 8.8mg/dL (8.5-10.1) Total Bilirubin 0.2mg/dL (0.0-1.2) Aspartate Amino Transf (AST/SGOT) 27U/L (0-50) Alanine Aminotransferase (ALT/SGPT) 154U/L (0-32) Alkaline Phosphatase 159U/L (25-165) Total Protein 6.2g/dL (6.4-8.4) Albumin 3.8g/dL (3.4-5.0) Discharge Medications Discharge Medications Allopurinol (Allopurinol) 100 Mg Tablet 100 MG PO QAM (Reported) Aspirin (Aspirin) 81 Mg Tablet 81 MG PO QAM (Reported) Cholecalciferol (Vitamin D3) (Vitamin D3) 2,000 Unit Capsule 2,000 UNIT PO QAM ( Reported) Clotrimazole 1% (Clotrimazole 1%) 30 Ml Solution 30 ML TOPICAL DAILY Prescribed by: RENUKA LYNN DO Cyanocobalamin (Vitamin B12) 500 Mcg Tablet 1,000 MCG PO QAM (Reported) Diltiazem ER (Cardizem CD) 240 Mg Cap.er.24h 240 MG PO BID Prescribed by: RENUKA LYNN DO Fluticasone/Salmeterol (Advair 250-50 Diskus) 60 Puff/Inh Disk 1 PUFF INHALATION BID Prescribed by: RENUKA LYNN DO Furosemide (Lasix) 20 Mg Tablet 20 MG PO DAILY Prescribed by: RENUKA LYNN DO Insulin Detemir (Levemir U100 Insulin Vial) 100 Unit/1 Ml Vial 45 UNIT SUBQ BID Prescribed by: RENUKA LYNN DO Ipratropium/Albuterol Sulfate (Iprat-Albut 0.5-3(2.5) mg/3 mL Inhalant Soln) 3 Ml Ampul.neb 3 ML NEB Q4HWA Prescribed by: GUMARO CUI DO Magnesium Oxide (Magnesium Oxide) 400 Mg Tablet 400 MG PO BID Prescribed by: LEOBARDO JAIN DO Pantoprazole DR (Pantoprazole DR) 40 Mg Tablet.dr 40 MG PO QAM (Reported) Prednisone (Deltasone) 20 Mg Tablet 20 MG PO DAILY Prescribed by: RENUKA LYNN DO Warfarin Sodium (Warfarin Sodium) 4 Mg Tablet 4 MG PO DAILY Prescribed by: RENUKA LYNN DO As needed Fluticasone Propionate (Flonase Allergy Relief) 50 Mcg/Actuation [place].susp 1 SPRAY NS BID PRN PRN RHINITIS (Reported) Durable Medical Equipment ([nebulizer]) (DME) Prescribed by: RENUKA LYNN DO Additional med instructions Continue taking all medications as previously prescribed except for the following changes: Use diltiazem 240 mg twice a day Advair one puff twice per day Levemir 45 units twice per day Prednisone 20 mg daily for 3 days, then 10 mg daily for 3 days Warfarin 4 mg daily unless adjusted by INR clinic (via home health) Use clotrimazole cream as needed Please change Furosemide from 40mg per day to 20mg per day Please discontinue Lisinopril Metformin Other previous dosings of prednisone Followup Plan Disposition: Home Follow-up plan Please follow-up with your primary care doctor, we would also like you to follow -up with Dr. Cai from cardiology. Also, please make sure to attend your visit with Dr. Mann from pulmonology - Continue follow-up with the Coumadin clinic for warfarin dosing - Follow up BMP to reassess her kidney status Discharge Diet: No restrictions Discharge Activity: No restrictions Patient Instructions Please take medications as described above. Continue home activities as previously tolerated. Follow-up Provider: Mitch Sow MD Follow-up with PCP in: 1 week Provider: Kory Muñoz MD Follow-up in: 3 weeks Time spent Greater than 35 minutes spent on documentation and coordination of discharge. Attending Statement The patient was seen and examined together with Dr. Lynn on 10/24/2016 and I have added additional information to the note above. copies to: Mitch Sow MD; Kory Muñoz MD; Genna Mann MD, Adam J DO Oct 24, 2016 16:50 Radha Chiang DO Oct 24, 2016 18:41
== END 2016-10-24 15:46 | disposition home or self-care (01) | DRG 291 ==
LOC: SED 19:43 → MPC 10-08 01:41 → PCC 10-15 21:40
PROVIDERS: ADMIT Hospitalist; ATTEND Hospitalist
PROC: 5A2204Z Restoration of Cardiac Rhythm, Single (ICD-10-PCS; principal; 2016-10-23)
DX: I50.33 Acute on chronic diastolic (congestive) heart failure (principal); J96.21 Acute and chronic respiratory failure with hypoxia; J96.22 Acute and chronic respiratory failure with hypercapnia; J44.1 Chronic obstructive pulmonary disease with (acute) exacerbation; N17.9 Acute kidney failure, unspecified; E66.2 Morbid (severe) obesity with alveolar hypoventilation; Z68.41 Body mass index [BMI] 40.0-44.9, adult; Z99.81 Dependence on supplemental oxygen; B35.3 Tinea pedis; Z79.52 Long term (current) use of systemic steroids; E11.9 Type 2 diabetes mellitus without complications; Z87.891 Personal history of nicotine dependence; G47.33 Obstructive sleep apnea (adult) (pediatric); Z79.84 Long term (current) use of oral hypoglycemic drugs; G25.81 Restless legs syndrome; Z66 Do not resuscitate; I25.10 Atherosclerotic heart disease of native coronary artery without angina pectoris; I25.2 Old myocardial infarction; I48.0 Paroxysmal atrial fibrillation; N18.2 Chronic kidney disease, stage 2 (mild)